=== PATIENT | male | born 1935 | race Caucasian/White ===

== ENCOUNTER 2016-11-14 09:43 | Outpatient (CLI) | payer MEDICARE, BC | END 2016-11-14 09:44 | disposition home or self-care (01) | DX: E78.5 Hyperlipidemia, unspecified (principal); D63.1 Anemia in chronic kidney disease; N18.3 Chronic kidney disease, stage 3 (moderate); M10.9 Gout, unspecified ==

== ENCOUNTER 2017-02-15 10:20 | Outpatient (CLI) | payer MEDICARE, BC ==
[2017-02-15 10:45] LABS: HCT - HEMATOCRIT 37.3 % (42.0-52.0); HGB - HEMOGLOBIN 12.2 g/dL (14.0-18.0); MEAN CORPUSCULAR HEMOGLOBIN 29.7 pg (27.0-31.0); MEAN CORPUSCULAR HGB CONC 32.7 g/dL (32.0-36.0); MEAN CORPUSCULAR VOLUME 90.7 fL (80.0-94.0); MEAN PLATELET VOLUME 7.7 fL (7.4-11.4); RED BLOOD COUNT 4.11 10^6/uL (4.70-6.10); RED CELL DISTRIBUTION WIDTH 15.5 % (12.0-15.0); WHITE BLOOD COUNT 5.8 x10^3/uL (4.8-10.8)
[2017-02-15 11:23] LABS: BUN - BLOOD UREA NITROGEN 35 mg/dL (6-20); CALCIUM 9.5 mg/dL (8.5-10.3); CARBON DIOXIDE - CO2 24 mmol/L (21-32); CHLORIDE 109 mmol/L (101-111); CHOL/HDL RATIO 3.8 (<5.0); CHOLESTEROL 173 mg/dL; CREATININE 1.9 mg/dL (0.6-1.2); GFR - MDRD 34 (>89); GLUCOSE 111 mg/dL (70-100); HDL CHOLESTEROL 45 mg/dL; IRON 64 ug/dL (45-182); LDL/HDL RATIO 2.2 (<3.6); POTASSIUM 4.6 mmol/L (3.5-5.0); SODIUM 142 mmol/L (135-145); TOTAL IRON BINDING CAPACITY 287 ug/dL (250-450); TRANSFERRIN 205 mg/dL (180-329); TRIGLYCERIDES 139 mg/dL; URIC ACID 8.2 mg/dL (2.6-7.2); VLDL CHOLESTEROL 28 mg/dL
== END 2017-02-15 10:21 | disposition home or self-care (01) ==
LOC: LAB 10:20
PROVIDERS: ATTEND Internal Medicine Nephrology
DX: N18.3 Chronic kidney disease, stage 3 (moderate) (principal); D63.1 Anemia in chronic kidney disease; M10.9 Gout, unspecified
CPT/HCPCS: 36415; 80061; 80069; 82043; 82570; 83540; 83970; 84466; 84550

== ENCOUNTER 2017-04-18 10:34 | Outpatient (CLI) | payer MEDICARE, BC ==
[2017-04-18 14:20] LABS: HCT - HEMATOCRIT 40.8 % (42.0-52.0); HGB - HEMOGLOBIN 13.1 g/dL (14.0-18.0); MEAN CORPUSCULAR HEMOGLOBIN 28.7 pg (27.0-31.0); MEAN CORPUSCULAR HGB CONC 32.1 g/dL (32.0-36.0); MEAN CORPUSCULAR VOLUME 89.6 fL (80.0-94.0); RED BLOOD COUNT 4.56 10^6/uL (4.70-6.10); RED CELL DISTRIBUTION WIDTH 16.1 % (12.0-15.0); WHITE BLOOD COUNT 7.7 x10^3/uL (4.8-10.8)
[2017-04-18 14:48] LABS: CALCIUM 9.7 mg/dL (8.5-10.3); POTASSIUM 4.4 mmol/L (3.5-5.0); URIC ACID 8.3 mg/dL (2.6-7.2)
== END 2017-04-18 10:35 | disposition home or self-care (01) ==
LOC: LAB.N 10:34
PROVIDERS: ATTEND Internal Medicine Nephrology
DX: N18.3 Chronic kidney disease, stage 3 (moderate) (principal); D63.1 Anemia in chronic kidney disease; M10.9 Gout, unspecified; E11.29 Type 2 diabetes mellitus with other diabetic kidney complication
CPT/HCPCS: 36415; 80069; 82043; 82570; 83540; 83970; 84466; 84550

== ENCOUNTER 2017-07-20 15:02 | Outpatient (CLI) | payer MEDICARE, BC ==
[2017-07-20 13:51] LABS: HCT - HEMATOCRIT 42.6 % (42.0-52.0); HGB - HEMOGLOBIN 14.1 g/dL (14.0-18.0); MEAN CORPUSCULAR HEMOGLOBIN 29.6 pg (27.0-31.0); MEAN CORPUSCULAR HGB CONC 33.1 g/dL (32.0-36.0); MEAN CORPUSCULAR VOLUME 89.6 fL (80.0-94.0); MEAN PLATELET VOLUME 9.5 fL (7.4-11.4); RED BLOOD COUNT 4.76 10^6/uL (4.70-6.10); RED CELL DISTRIBUTION WIDTH 17.2 % (12.0-15.0); WHITE BLOOD COUNT 6.9 x10^3/uL (4.8-10.8)
[2017-07-20 14:15] LABS: CALCIUM 9.4 mg/dL (8.5-10.3); CREATININE 1.9 mg/dL (0.6-1.2); PHOSPHORUS 3.3 mg/dL (2.5-4.6); POTASSIUM 4.2 mmol/L (3.5-5.0); URIC ACID 6.4 mg/dL (2.6-7.2)
[2017-07-22 13:17] LABS: ALPHA 1 GLOBULIN 0.3 g/dL (0.2-0.3); ALPHA 2 GLOBULIN 0.9 g/dL (0.5-0.9); BETA 1 GLOBULIN 0.5 g/dL (0.4-0.6); BETA 2 GLOBULIN 0.5 g/dL (0.2-0.5)
== END 2017-07-20 15:03 | disposition home or self-care (01) ==
LOC: LAB.N 15:02
PROVIDERS: ATTEND Internal Medicine Nephrology
DX: E78.5 Hyperlipidemia, unspecified (principal); E11.29 Type 2 diabetes mellitus with other diabetic kidney complication; N18.3 Chronic kidney disease, stage 3 (moderate); I12.9 Hypertensive chronic kidney disease with stage 1 through stage 4 chronic kidney disease, or unspecified chronic kidney disease; M10.9 Gout, unspecified; I48.91 Unspecified atrial fibrillation; D63.1 Anemia in chronic kidney disease
CPT/HCPCS: 36415; 80069; 82043; 82570; 83540; 83970; 84155; 84165; 84466; 84550

== ENCOUNTER 2017-08-18 15:01 | Emergency (ER) | payer MEDICARE, BC ==
--- NOTE | 2017-08-18 18:02 | CT Report ---
EXAM: CT LUMBAR SPINE WITHOUT CONTRAST EXAM DATE: 08/18/2017 05:47 PM. CLINICAL HISTORY: Acute low back pain. COMPARISONS: None. TECHNIQUE: Thin-section axial images were acquired of the lumbar spine from T12 to S1 without contras t. Post-processing: Coronal and sagittal reformats. Other: None. In accordance with CT protocol optimization, one or more of the following dose reduction techniques w ere utilized for this exam: automated exposure control, adjustment of mA and/or KV based on patient s ize, or use of iterative reconstructive technique. FINDINGS: Alignment: No scoliosis or spondylolisthesis. Bones: Five clu-vdt-latrxpi lumbar vertebral bodies are present. No fracture or bony destruction. Disk Levels/Facets: T12-L1: Unremarkable. L1-L2: Unremarkable. L2-L3: There is wqbp-ix-aifvyotc disk height loss with intradiskal gas. There is posterior disk osteo phyte spurring causing mild central spinal canal stenosis. L3-L4: Mild disk height loss with posterior disk osteophyte spurring causing mild to moderate central spinal canal stenosis. L4-L5: Posterior disk bulge with mild central spinal canal stenosis. L5-S1: Unremarkable. Musculature: Normal. No fatty atrophy. Other: There is an incidental benign fat density right adrenal nodule consistent with a lipoma or mye lolipoma. IMPRESSION: 1. No fracture or subluxation of the lumbar spine. 2. Degenerative disk disease at L2-L5. Gszx-zn-czlkvuna severity. [facility] Referring Provider Line: [phone] SITE ID: [id number]
--- NOTE | 2017-08-18 18:27 | ED Physician Documentation ---
PD HPI BACK PAIN - Stated complaint Stated Complaint: BACK SPASMS - Chief complaint Chief Complaint: Back Pain - History obtained from History obtained from: Patient, Family (spouse) - History of Present Illness Timing - onset: How many weeks ago (2) Timing - details: Still present Location: Lower, Left Quality: Pain Associated symptoms: No: Fever, Weakness, Numbness, Incontinent of urine Worsened by: Movement, Twisting Similar symptoms before: No diagnosis (Similar symptoms in the past, but more intense this time.) - Treatment prior to arrival Treatment prior to arrival: Tylenol, without relief. - Additional information Additional information: The patient is an 82-year-old male with a history of atrial fibrillation, diabetes, and rheumatoid arthritis, who presents with left lower back pain radiating to his buttock. It has been increasing over the past 2 weeks. He denies traumatic injury or any specific inciting event. He denies fever, urinary incontinence, numbness or weakness. He has had similar pain in the past , but never this intense before. He has been using Tylenol, without relief. Review of Systems Constitutional: denies: Fever Nose: denies: Congestion Cardiac: denies: Chest pain / pressure Respiratory: denies: Dyspnea, Cough GI: denies: Abdominal Pain, Nausea, Vomiting : denies: Dysuria, Incontinent Skin: denies: Rash Musculoskeletal: reports: Back pain. denies: Neck pain, Extremity swelling Neurologic: denies: Focal weakness, Numbness, Headache PD PAST MEDICAL HISTORY - Past Medical History Past Medical History: Yes Cardiovascular: Atrial fibrillation Respiratory: None Neuro: Peripheral neuropathy Endocrine/Autoimmune: Type 2 diabetes GI: None : Renal insuffiency HEENT: None Psych: None Musculoskeletal: Rheumatoid arthritis Derm: None - Past Surgical History Past Surgical History: Yes General: Cholecystectomy - Present Medications Home Medications: Ambulatory Orders Medication Instructions Recorded Confirmed Cyclobenzaprine [Flexeril] 10 mg PO TID PRN #20 tablet 08/18/17 traMADol [Ultram] 50 mg PO Q4-6H PRN #20 tablet 08/18/17 - Allergies Allergies/Adverse Reactions: Allergies Allergy/AdvReac Type Severity Reaction Status Date / Time acetaminophen [From Vicodin] Allergy Itching Verified 08/18/17 15:17 celecoxib [From Celebrex] Allergy Unknown Verified 08/18/17 15:17 cephalexin [From Keflex] Allergy Nausea Verified 08/18/17 15:17 codeine Allergy Itching Verified 08/18/17 15:17 hydrocodone [From Vicodin] Allergy Itching Verified 08/18/17 15:17 indomethacin Allergy Unknown Verified 08/18/17 15:17 NSAIDS (Non-Steroidal Allergy Unknown Verified 08/18/17 15:17 Anti-Inflamma rofecoxib [From Vioxx] Allergy Unknown Verified 08/18/17 15:17 sildenafil [From Viagra] Allergy Diaphoresis Verified 08/18/17 15:17 - Social History Does the pt smoke?: No Smoking Status: Never smoker Does the pt drink ETOH?: No Does the pt have substance abuse?: No - Immunizations Immunizations are current?: Yes PD ED PE NORMAL - Vitals Vital signs reviewed: Yes (Hypertensive) - General General: Alert 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, Well developed/nourished - HEENT HEENT: Atraumatic - Neck Neck: No bony TTP, No JVD - Cardiac Cardiac: RRR, No murmur - Respiratory Respiratory: No respiratory distress, Clear bilaterally - Abdomen Abdomen: Soft, Non tender, Other (Rotund abdomen.) - Back Back: No CVA TTP, Other (There is tenderness to palpation along the left paralumbar region and over the left sacroiliac joint. There is no specific tenderness over the spinous processes.) - Derm Derm: No rash - Extremities Extremities: No edema, No calf tenderness / cord, Other (Straight leg raise is negative bilaterally.) - Neuro Neuro: Alert 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, No motor deficit, No sensory deficit, Other ( Deep tendon reflexes are 2+ and equal bilaterally at the patellar tendons, and 1 + and equal bilaterally at the Achilles tendons.) Results - Rads (name of study) CT lumbar spine Radiology: Prelim report reviewed, EMP read contemporaneously, See rad report ( No fracture or subluxation of the lumbar spine. Degenerative disc disease at L2 through L5, mild to moderate severity.) PD MEDICAL DECISION MAKING - ED course Complexity details: re-evaluated patient, considered differential, d/w patient, d/w family ED course: The patient's presentation is significant for acute exacerbation of recurrent low back pain. Because of his age, imaging study as clinically indicated. CT scan of the lumbar spine reveals degenerative changes, without evidence of lytic lesion or acute neural foraminal impingement. The patient declined pain medication while in the emergency department. He is being discharged with prescription for Flexeril and for tramadol. I discussed with him and his the CT scan, symptomatic treatment and outpatient follow-up, as well as potentially worrisome signs or symptoms that should prompt fashion. Departure - Departure Disposition: 01 Home, Self Care Clinical Impression: Acute low back pain Qualifiers: Back pain laterality: left Sciatica presence: without sciatica Qualified Code(s ): M54.5 - Low back pain Degenerative disc disease Qualifiers: Spinal region: lumbar Qualified Code(s): M51.36 - Other intervertebral disc degeneration, lumbar region Condition: Stable Instructions: ED Low Back Pain Injury Follow-Up: Brennen Rodriguez MD [Provider Admit Priv/Credential] - Prescriptions: Cyclobenzaprine [Flexeril] 10 mg PO TID PRN #20 tablet PRN Reason: Spasms traMADol [Ultram] 50 mg PO Q4-6H PRN #20 tablet PRN Reason: Pain Comments: Apply ice pack to your lower back intermittently for the next 3 days. You can use ibuprofen, up to 800 mg 3 times daily for its anti-inflammatory effect. You can use tramadol as prescribed if needed for pain. You can use Flexeril as prescribed if needed for muscle spasms. Follow up with your primary physician within 2 weeks. Call to schedule appointment. Return to the emergency department if you develop increasing back pain, numbness or weakness in your lower extremities, urinary incontinence, fever, or otherwise worsening symptoms. Discharge Date/Time: 08/18/17 19:00
[2017-08-18 18:59] VITALS: BP 148/90
== END 2017-08-18 19:00 | disposition home or self-care (01) ==
LOC: ED 15:01
DX: M54.5 Low back pain (principal); M51.36 Other intervertebral disc degeneration, lumbar region; I48.91 Unspecified atrial fibrillation; E11.42 Type 2 diabetes mellitus with diabetic polyneuropathy; M06.9 Rheumatoid arthritis, unspecified
CPT/HCPCS: 72131; 99283; 99284

== ENCOUNTER 2017-11-16 08:00 | Outpatient (CLI) | payer OTHER, MEDICARE, BC ==
[2017-11-16 12:03] LABS: HGB - HEMOGLOBIN 14.5 g/dL (14.0-18.0); MEAN CORPUSCULAR HEMOGLOBIN 31.2 pg (27.0-31.0); MEAN CORPUSCULAR HGB CONC 33.2 g/dL (32.0-36.0); MEAN CORPUSCULAR VOLUME 94.1 fL (80.0-94.0); MEAN PLATELET VOLUME 9.4 fL (7.4-11.4); RED BLOOD COUNT 4.65 10^6/uL (4.70-6.10); RED CELL DISTRIBUTION WIDTH 15.1 % (12.0-15.0); WHITE BLOOD COUNT 6.9 x10^3/uL (4.8-10.8)
[2017-11-16 12:39] LABS: CREATININE,URINE 162.6 mg/dL; MICROALBUM/CREATININE RATIO,UR 106.4 ug/mg (<30.0); MICROALBUMIN,URINE 17.3 mg/dL (0-300.0)
[2017-11-16 13:30] LABS: ALBUMIN 3.8 g/dL (3.2-5.5); CALCIUM 9.3 mg/dL (8.5-10.3); CREATININE 1.7 mg/dL (0.6-1.2); PHOSPHORUS 2.8 mg/dL (2.5-4.6); URIC ACID 6.5 mg/dL (2.6-7.2)
== END 2017-11-16 08:01 | disposition home or self-care (01) ==
LOC: LAB.N 08:00
PROVIDERS: ATTEND Internal Medicine Nephrology
DX: D63.1 Anemia in chronic kidney disease (principal); N18.3 Chronic kidney disease, stage 3 (moderate); R80.9 Proteinuria, unspecified; M10.9 Gout, unspecified
CPT/HCPCS: 36415; 80069; 82043; 82570; 83540; 83970; 84466; 84550

== ENCOUNTER 2017-12-14 15:06 | Outpatient (CLI) | payer MEDICARE, BC ==
[2017-12-14 19:20] LABS: BASOPHILS # (AUTO) 0.1 10^3/uL (0.0-0.1); BASOPHILS % (AUTO) 1.1 %; EOSINOPHILS # (AUTO) 0.2 10^3/uL (0.0-0.7); EOSINOPHILS % (AUTO) 2.3 %; HGB - HEMOGLOBIN 14.7 g/dL (14.0-18.0); LYMPHOCYTES # (AUTO) 1.8 10^3/uL (1.5-3.5); LYMPHOCYTES % (AUTO) 24.2 %; MEAN CORPUSCULAR HEMOGLOBIN 30.9 pg (27.0-31.0); MEAN CORPUSCULAR HGB CONC 32.4 g/dL (32.0-36.0); MEAN CORPUSCULAR VOLUME 95.4 fL (80.0-94.0); MEAN PLATELET VOLUME 9.1 fL (7.4-11.4); MONOCYTES # (AUTO) 0.9 10^3/uL (0.0-1.0); MONOCYTES % (AUTO) 12.3 %; NEUTROPHILS # (AUTO) 4.4 10^3/uL (1.5-6.6); NEUTROPHILS % (AUTO) 60.1 %; PLT - PLATELET COUNT 201 10^3/uL (130-450); RED BLOOD COUNT 4.77 10^6/uL (4.70-6.10); RED CELL DISTRIBUTION WIDTH 15.4 % (12.0-15.0); WHITE BLOOD COUNT 7.3 x10^3/uL (4.8-10.8)
[2017-12-14 19:44] LABS: ALBUMIN 4.3 g/dL (3.2-5.5); ALBUMIN/GLOBULIN RATIO 1.4 (1.0-2.2); ALKALINE PHOSPHATASE 67 IU/L (42-121); ALT ALANINE AMINOTRANSFERASE 23 IU/L (10-60); AST ASPARTATE AMINOTRANSFERASE 21 IU/L (10-42); BILIRUBIN,TOTAL 0.7 mg/dL (0.2-1.0); BUN - BLOOD UREA NITROGEN 38 mg/dL (6-20); CARBON DIOXIDE - CO2 30 mmol/L (21-32); CHLORIDE 103 mmol/L (101-111); CREATININE 1.7 mg/dL (0.6-1.2); GFR - MDRD 39 (>89); GLUCOSE 112 mg/dL (70-100); SODIUM 139 mmol/L (135-145); TOTAL PROTEIN 7.3 g/dL (6.7-8.2)
[2017-12-15 11:36] LABS: DIGOXIN < 0.2 ng/mL
== END 2017-12-14 15:07 | disposition home or self-care (01) ==
LOC: LAB.WCP 15:06
PROVIDERS: ATTEND Family Medicine
DX: I48.91 Unspecified atrial fibrillation (principal); I42.9 Cardiomyopathy, unspecified; E11.9 Type 2 diabetes mellitus without complications
CPT/HCPCS: 36415; 80053; 80162; 84443; 85025

== ENCOUNTER 2017-12-19 08:00 | Outpatient (CLI) | payer MEDICARE, BC ==
[2017-12-19 19:44] LABS: DIGOXIN < 0.2 ng/mL
== END 2017-12-19 08:01 | disposition home or self-care (01) ==
LOC: LAB.WCP 08:00
PROVIDERS: ATTEND Family Medicine
DX: I48.91 Unspecified atrial fibrillation (principal)
CPT/HCPCS: 36415; 80162

== ENCOUNTER 2017-12-29 06:00 | Outpatient (CLI) | payer MEDICARE, BC ==
[2017-12-29 19:14] LABS: DIGOXIN 0.7 ng/mL
== END 2017-12-29 06:01 | disposition home or self-care (01) ==
LOC: LAB.WCP 06:00
PROVIDERS: ATTEND Family Medicine
DX: I48.91 Unspecified atrial fibrillation (principal)
CPT/HCPCS: 36415; 80162

== ENCOUNTER 2018-01-15 08:00 | Outpatient (CLI) | payer MEDICARE, BC ==
[2018-01-15 19:01] LABS: BASOPHILS # (AUTO) 0.1 10^3/uL (0.0-0.1); BASOPHILS % (AUTO) 1.3 %; EOSINOPHILS # (AUTO) 0.2 10^3/uL (0.0-0.7); EOSINOPHILS % (AUTO) 2.6 %; HGB - HEMOGLOBIN 13.6 g/dL (14.0-18.0); LYMPHOCYTES # (AUTO) 1.4 10^3/uL (1.5-3.5); LYMPHOCYTES % (AUTO) 19.8 %; MEAN CORPUSCULAR HEMOGLOBIN 30.4 pg (27.0-31.0); MEAN CORPUSCULAR HGB CONC 31.8 g/dL (32.0-36.0); MEAN CORPUSCULAR VOLUME 95.7 fL (80.0-94.0); MEAN PLATELET VOLUME 9.8 fL (7.4-11.4); MONOCYTES # (AUTO) 0.8 10^3/uL (0.0-1.0); MONOCYTES % (AUTO) 11.2 %; NEUTROPHILS # (AUTO) 4.6 10^3/uL (1.5-6.6); NEUTROPHILS % (AUTO) 65.1 %; PLT - PLATELET COUNT 190 10^3/uL (130-450); RED BLOOD COUNT 4.48 10^6/uL (4.70-6.10); RED CELL DISTRIBUTION WIDTH 15.2 % (12.0-15.0); WHITE BLOOD COUNT 7.1 x10^3/uL (4.8-10.8)
[2018-01-15 19:49] LABS: ALBUMIN 3.9 g/dL (3.2-5.5); ALBUMIN/GLOBULIN RATIO 1.3 (1.0-2.2); BILIRUBIN,TOTAL 0.7 mg/dL (0.2-1.0); CALCIUM 9.6 mg/dL (8.5-10.3); CREATININE 1.6 mg/dL (0.6-1.2); TOTAL PROTEIN 6.9 g/dL (6.7-8.2)
[2018-01-15 20:05] LABS: HB2 TOTAL 14.8 g/dL; HEMOGLOBIN A1C 0.9 g/dL; HEMOGLOBIN A1C % 7.7 % (4.6-6.2)
== END 2018-01-15 08:01 | disposition home or self-care (01) ==
LOC: LAB.WCP 08:00
PROVIDERS: ATTEND Physician Assistant
DX: R53.83 Other fatigue (principal); E11.9 Type 2 diabetes mellitus without complications; I42.9 Cardiomyopathy, unspecified; I48.91 Unspecified atrial fibrillation
CPT/HCPCS: 36415; 80053; 83036; 85025

== ENCOUNTER 2018-01-17 11:10 | Outpatient (CLI) | payer MEDICARE, BC ==
[2018-01-17 19:14] LABS: BASOPHILS # (AUTO) 0.1 10^3/uL (0.0-0.1); BASOPHILS % (AUTO) 0.8 %; EOSINOPHILS # (AUTO) 0.2 10^3/uL (0.0-0.7); EOSINOPHILS % (AUTO) 2.6 %; HGB - HEMOGLOBIN 13.6 g/dL (14.0-18.0); LYMPHOCYTES # (AUTO) 1.4 10^3/uL (1.5-3.5); MEAN CORPUSCULAR HEMOGLOBIN 30.7 pg (27.0-31.0); MEAN CORPUSCULAR HGB CONC 31.9 g/dL (32.0-36.0); MEAN CORPUSCULAR VOLUME 96.2 fL (80.0-94.0); MEAN PLATELET VOLUME 9.7 fL (7.4-11.4); MONOCYTES # (AUTO) 0.8 10^3/uL (0.0-1.0); MONOCYTES % (AUTO) 11.4 %; NEUTROPHILS # (AUTO) 4.4 10^3/uL (1.5-6.6); NEUTROPHILS % (AUTO) 64.2 %; PLT - PLATELET COUNT 176 10^3/uL (130-450); RED BLOOD COUNT 4.44 10^6/uL (4.70-6.10); RED CELL DISTRIBUTION WIDTH 15.7 % (12.0-15.0); WHITE BLOOD COUNT 6.8 x10^3/uL (4.8-10.8)
[2018-01-17 19:28] LABS: DIGOXIN 1.4 ng/mL
[2018-01-17 19:38] LABS: ALBUMIN 3.6 g/dL (3.2-5.5); ALBUMIN/GLOBULIN RATIO 1.1 (1.0-2.2); CALCIUM 9.6 mg/dL (8.5-10.3); CREATININE 1.6 mg/dL (0.6-1.2); TOTAL PROTEIN 6.9 g/dL (6.7-8.2)
== END 2018-01-17 11:11 | disposition home or self-care (01) ==
LOC: LAB.WCP 11:10
PROVIDERS: ATTEND Family Medicine
DX: I48.91 Unspecified atrial fibrillation (principal); E11.9 Type 2 diabetes mellitus without complications; N18.3 Chronic kidney disease, stage 3 (moderate); I42.9 Cardiomyopathy, unspecified
CPT/HCPCS: 36415; 80053; 80162; 84443; 85025

== ENCOUNTER 2018-02-01 08:00 | Outpatient (CLI) | payer MEDICARE, BC | END 2018-02-01 08:01 | LOC: LAB.WCP 08:00 | PROVIDERS: ATTEND Physician Assistant | DX: I42.9 Cardiomyopathy, unspecified (principal); Z79.01 Long term (current) use of anticoagulants; I48.91 Unspecified atrial fibrillation; R53.83 Other fatigue; N18.3 Chronic kidney disease, stage 3 (moderate) | CPT/HCPCS: 36415; 83880 ==

== ENCOUNTER 2018-03-19 08:00 | Outpatient (CLI) | payer MEDICARE, BC ==
[2018-03-19 12:57] LABS: HGB - HEMOGLOBIN 13.8 g/dL (14.0-18.0); MEAN CORPUSCULAR HEMOGLOBIN 31.8 pg (27.0-31.0); MEAN CORPUSCULAR HGB CONC 33.2 g/dL (32.0-36.0); MEAN CORPUSCULAR VOLUME 95.9 fL (80.0-94.0); MEAN PLATELET VOLUME 9.5 fL (7.4-11.4); RED BLOOD COUNT 4.33 10^6/uL (4.70-6.10); RED CELL DISTRIBUTION WIDTH 15.2 % (12.0-15.0)
[2018-03-19 14:36] LABS: CREATININE,URINE 144.7 mg/dL; MICROALBUM/CREATININE RATIO,UR 96.8 ug/mg (<30.0)
[2018-03-19 14:59] LABS: ALBUMIN 3.9 g/dL (3.2-5.5); CALCIUM 9.6 mg/dL (8.5-10.3); CREATININE 2.2 mg/dL (0.6-1.2); PHOSPHORUS 3.6 mg/dL (2.5-4.6); URIC ACID 7.1 mg/dL (2.6-7.2)
== END 2018-03-19 08:01 | disposition home or self-care (01) ==
LOC: LAB.N 08:00
PROVIDERS: ATTEND Internal Medicine Nephrology
DX: I12.9 Hypertensive chronic kidney disease with stage 1 through stage 4 chronic kidney disease, or unspecified chronic kidney disease (principal); N18.3 Chronic kidney disease, stage 3 (moderate); R80.9 Proteinuria, unspecified; M10.9 Gout, unspecified
CPT/HCPCS: 36415; 80069; 82043; 82570; 83540; 83970; 84466; 84550; 85027

== ENCOUNTER 2018-05-10 15:06 | Outpatient (CLI) | payer MEDICARE, BC | END 2018-05-10 23:59 | disposition home or self-care (01) | LOC: LAB.N 15:06 | PROVIDERS: ATTEND Internal Medicine Cardiovascular Disease | DX: Z53.9 Procedure and treatment not carried out, unspecified reason (principal) ==

== ENCOUNTER 2018-06-20 08:00 | Outpatient (CLI) | payer MEDICARE, BC ==
[2018-06-20 18:49] LABS: BASOPHILS # (AUTO) 0.1 10^3/uL (0.0-0.1); BASOPHILS % (AUTO) 1.1 %; EOSINOPHILS # (AUTO) 0.5 10^3/uL (0.0-0.7); HGB - HEMOGLOBIN 13.4 g/dL (14.0-18.0); LYMPHOCYTES # (AUTO) 1.4 10^3/uL (1.5-3.5); LYMPHOCYTES % (AUTO) 15.2 %; MEAN CORPUSCULAR HEMOGLOBIN 31.8 pg (27.0-31.0); MEAN CORPUSCULAR HGB CONC 32.8 g/dL (32.0-36.0); MONOCYTES # (AUTO) 1.3 10^3/uL (0.0-1.0); NEUTROPHILS # (AUTO) 5.8 10^3/uL (1.5-6.6); NEUTROPHILS % (AUTO) 64.7 %; PLT - PLATELET COUNT 253 10^3/uL (130-450); RED CELL DISTRIBUTION WIDTH 15.4 % (12.0-15.0)
[2018-06-20 19:03] LABS: HB2 TOTAL 14.6 g/dL; HEMOGLOBIN A1C 0.69 g/dL; HEMOGLOBIN A1C % 6.5 % (4.6-6.2)
[2018-06-20 19:18] LABS: ALBUMIN 3.8 g/dL (3.2-5.5); BILIRUBIN,TOTAL 0.8 mg/dL (0.2-1.0); CALCIUM 9.6 mg/dL (8.5-10.3); CREATININE 2.3 mg/dL (0.6-1.2); TOTAL PROTEIN 7.8 g/dL (6.7-8.2)
== END 2018-06-20 23:59 | disposition home or self-care (01) ==
LOC: LAB.WCP 08:00
PROVIDERS: ATTEND Physician Assistant
DX: R53.83 Other fatigue (principal); E11.9 Type 2 diabetes mellitus without complications
CPT/HCPCS: 36415; 80053; 83036; 83540; 84443; 84466; 85025

== ENCOUNTER 2018-07-02 08:00 | Outpatient (CLI) | payer MEDICARE, BC | END 2018-07-02 23:59 | disposition home or self-care (01) | LOC: LAB.R 08:00 | PROVIDERS: ATTEND Family Medicine | DX: R05 Cough (principal) | CPT/HCPCS: 87275; 87276 ==

== ENCOUNTER 2018-07-02 08:00 | Outpatient (CLI) | payer MEDICARE, BC ==
[2018-07-02 19:17] LABS: BASOPHILS # (AUTO) 0.1 10^3/uL (0.0-0.1); BASOPHILS % (AUTO) 1.3 %; EOSINOPHILS # (AUTO) 0.5 10^3/uL (0.0-0.7); EOSINOPHILS % (AUTO) 5.1 %; HGB - HEMOGLOBIN 13.5 g/dL (14.0-18.0); LYMPHOCYTES # (AUTO) 1.1 10^3/uL (1.5-3.5); LYMPHOCYTES % (AUTO) 12.4 %; MEAN CORPUSCULAR HEMOGLOBIN 31.1 pg (27.0-31.0); MEAN CORPUSCULAR HGB CONC 31.8 g/dL (32.0-36.0); MEAN CORPUSCULAR VOLUME 97.7 fL (80.0-94.0); MEAN PLATELET VOLUME 9.4 fL (7.4-11.4); MONOCYTES # (AUTO) 1.1 10^3/uL (0.0-1.0); MONOCYTES % (AUTO) 12.5 %; NEUTROPHILS # (AUTO) 6.1 10^3/uL (1.5-6.6); NEUTROPHILS % (AUTO) 68.7 %; PLT - PLATELET COUNT 264 10^3/uL (130-450); RED BLOOD COUNT 4.34 10^6/uL (4.70-6.10); RED CELL DISTRIBUTION WIDTH 15.2 % (12.0-15.0); WHITE BLOOD COUNT 8.9 x10^3/uL (4.8-10.8)
[2018-07-02 19:38] LABS: ALBUMIN 3.7 g/dL (3.2-5.5); ALBUMIN/GLOBULIN RATIO 0.9 (1.0-2.2); CALCIUM 9.7 mg/dL (8.5-10.3); CREATININE 2.5 mg/dL (0.6-1.2); TOTAL PROTEIN 7.8 g/dL (6.7-8.2)
== END 2018-07-02 23:59 | disposition home or self-care (01) ==
LOC: LAB.WCP 08:00
PROVIDERS: ATTEND Family Medicine
DX: R06.00 Dyspnea, unspecified (principal); R05 Cough
CPT/HCPCS: 36415; 80053; 83880; 85025

== ENCOUNTER 2018-07-15 09:04 | Outpatient (CLI) | payer MEDICARE, BC ==
[2018-07-15 09:39] LABS: MEAN CORPUSCULAR HEMOGLOBIN 31.6 pg (27.0-31.0); MEAN CORPUSCULAR HGB CONC 33.3 g/dL (32.0-36.0); MEAN CORPUSCULAR VOLUME 94.8 fL (80.0-94.0); MEAN PLATELET VOLUME 8.4 fL (7.4-11.4); RED BLOOD COUNT 4.1 10^6/uL (4.70-6.10); RED CELL DISTRIBUTION WIDTH 15.6 % (12.0-15.0); WHITE BLOOD COUNT 7.3 x10^3/uL (4.8-10.8)
[2018-07-15 09:55] LABS: ALBUMIN 3.7 g/dL (3.2-5.5); CALCIUM 9.5 mg/dL (8.5-10.3); CREATININE 2.3 mg/dL (0.6-1.2); PHOSPHORUS 3.7 mg/dL (2.5-4.6); URIC ACID 6.3 mg/dL (2.6-7.2)
[2018-07-15 10:40] LABS: CREATININE,URINE 195.8 mg/dL; MICROALBUM/CREATININE RATIO,UR 83.2 ug/mg (<30.0); MICROALBUMIN,URINE 16.3 mg/dL (0-300.0)
== END 2018-07-15 09:05 | disposition home or self-care (01) ==
LOC: LAB 09:04
PROVIDERS: ATTEND Internal Medicine Nephrology
DX: E21.1 Secondary hyperparathyroidism, not elsewhere classified (principal); D63.1 Anemia in chronic kidney disease; E78.5 Hyperlipidemia, unspecified; N18.3 Chronic kidney disease, stage 3 (moderate); I12.9 Hypertensive chronic kidney disease with stage 1 through stage 4 chronic kidney disease, or unspecified chronic kidney disease; R80.9 Proteinuria, unspecified; M10.9 Gout, unspecified; E11.29 Type 2 diabetes mellitus with other diabetic kidney complication
CPT/HCPCS: 36415; 80069; 82043; 82570; 83540; 83970; 84466; 84550; 85027

== ENCOUNTER 2018-07-15 09:08 | Outpatient (CLI) | payer MEDICARE, BC | END 2018-07-15 09:09 | disposition home or self-care (01) | LOC: RT 09:08 | PROVIDERS: ATTEND Family Medicine | DX: R05 Cough (principal); E21.1 Secondary hyperparathyroidism, not elsewhere classified; D63.1 Anemia in chronic kidney disease; E78.5 Hyperlipidemia, unspecified; N18.3 Chronic kidney disease, stage 3 (moderate); I12.9 Hypertensive chronic kidney disease with stage 1 through stage 4 chronic kidney disease, or unspecified chronic kidney disease; R80.9 Proteinuria, unspecified; M10.9 Gout, unspecified; E11.29 Type 2 diabetes mellitus with other diabetic kidney complication | CPT/HCPCS: 36415; 80069; 82043; 82570; 83540; 83970; 84466; 84550; 85027 ==

== ENCOUNTER 2018-09-04 08:00 | Outpatient (CLI) | payer MEDICARE, BC ==
[2018-09-04 20:03] LABS: CALCIUM 9.5 mg/dL (8.5-10.3); CREATININE 1.7 mg/dL (0.6-1.2); PHOSPHORUS 3.6 mg/dL (2.5-4.6)
== END 2018-09-04 23:59 | disposition home or self-care (01) ==
LOC: LAB.N 08:00
PROVIDERS: ATTEND Internal Medicine Nephrology
DX: I12.9 Hypertensive chronic kidney disease with stage 1 through stage 4 chronic kidney disease, or unspecified chronic kidney disease (principal); N18.3 Chronic kidney disease, stage 3 (moderate); R80.9 Proteinuria, unspecified
CPT/HCPCS: 36415; 80069; 81599; 82610

== ENCOUNTER 2018-09-14 08:00 | Outpatient (CLI) | payer MEDICARE, BC ==
[2018-09-14 14:15] LABS: ALBUMIN 3.9 g/dL (3.2-5.5); ALBUMIN/GLOBULIN RATIO 1.2 (1.0-2.2); BILIRUBIN,TOTAL 0.7 mg/dL (0.2-1.0); CALCIUM 9.7 mg/dL (8.5-10.3); CREATININE 1.8 mg/dL (0.6-1.2); TOTAL PROTEIN 7.1 g/dL (6.7-8.2)
[2018-09-14 15:59] LABS: HB2 TOTAL 14.9 g/dL; HEMOGLOBIN A1C 0.66 g/dL; HEMOGLOBIN A1C % 6.2 % (4.6-6.2)
== END 2018-09-14 23:59 | disposition home or self-care (01) ==
LOC: LAB.WCP 08:00
PROVIDERS: ATTEND Family Medicine
DX: R11.0 Nausea (principal); E11.9 Type 2 diabetes mellitus without complications; R05 Cough; I48.92 Unspecified atrial flutter
CPT/HCPCS: 36415; 80053; 82043; 83036; 84443

== ENCOUNTER 2018-12-12 08:00 | Outpatient (CLI) | payer MEDICARE, BC | END 2018-12-12 23:59 | disposition home or self-care (01) | LOC: LAB.WCP 08:00 | PROVIDERS: ATTEND Family Medicine | DX: I48.92 Unspecified atrial flutter (principal); Z79.01 Long term (current) use of anticoagulants ==

== ENCOUNTER 2018-12-17 10:40 | Outpatient (CLI) | payer MEDICARE, BC ==
[2018-12-17 12:49] LABS: MEAN CORPUSCULAR HEMOGLOBIN 30.2 pg (27.0-31.0); MEAN CORPUSCULAR HGB CONC 32.5 g/dL (32.0-36.0); MEAN CORPUSCULAR VOLUME 92.9 fL (80.0-94.0); MEAN PLATELET VOLUME 8.8 fL (7.4-11.4); RED BLOOD COUNT 4.32 10^6/uL (4.70-6.10); WHITE BLOOD COUNT 6.3 x10^3/uL (4.8-10.8)
[2018-12-17 14:32] LABS: ALBUMIN 3.5 g/dL (3.2-5.5); BILIRUBIN,TOTAL 0.8 mg/dL (0.2-1.0); CALCIUM 9.2 mg/dL (8.5-10.3); CREATININE 1.6 mg/dL (0.6-1.2); TOTAL PROTEIN 6.9 g/dL (6.7-8.2)
[2018-12-17 14:44] LABS: HB2 TOTAL 13.5 g/dL; HEMOGLOBIN A1C 0.6 g/dL; HEMOGLOBIN A1C % 6.2 % (4.6-6.2)
[2018-12-17 14:48] LABS: CREATININE,URINE 131.1 mg/dL; MICROALBUM/CREATININE RATIO,UR 622.4 ug/mg (<30.0); MICROALBUMIN,URINE 81.6 mg/dL (0-300.0)
[2018-12-17 14:51] LABS: PHOSPHORUS 2.6 mg/dL (2.5-4.6); URIC ACID 8.2 mg/dL (2.6-7.2)
== END 2018-12-17 23:59 | disposition home or self-care (01) ==
LOC: LAB.N 10:40
PROVIDERS: ATTEND Family Medicine
DX: E11.9 Type 2 diabetes mellitus without complications (principal); D63.1 Anemia in chronic kidney disease; I48.92 Unspecified atrial flutter; N18.3 Chronic kidney disease, stage 3 (moderate); R11.0 Nausea; I12.9 Hypertensive chronic kidney disease with stage 1 through stage 4 chronic kidney disease, or unspecified chronic kidney disease; R80.9 Proteinuria, unspecified
CPT/HCPCS: 36415; 80053; 82043; 82570; 83036; 83540; 83970; 84100; 84466; 84550; 85027

== ENCOUNTER 2018-12-26 08:00 | Outpatient (CLI) | payer MEDICARE, BC | END 2018-12-26 23:59 | disposition home or self-care (01) | LOC: LAB.WCP 08:00 | PROVIDERS: ATTEND Family Medicine | DX: Z51.81 Encounter for therapeutic drug level monitoring (principal); I48.92 Unspecified atrial flutter; Z79.01 Long term (current) use of anticoagulants ==

== ENCOUNTER 2019-01-23 08:00 | Outpatient (CLI) | payer MEDICARE, BC | END 2019-01-23 23:59 | disposition home or self-care (01) | LOC: LAB.WCP 08:00 | PROVIDERS: ATTEND Family Medicine | DX: I48.91 Unspecified atrial fibrillation (principal); Z79.01 Long term (current) use of anticoagulants ==

== ENCOUNTER 2019-03-08 08:00 | Outpatient (CLI) | payer MEDICARE, BC | END 2019-03-08 08:01 | disposition home or self-care (01) | LOC: LAB.WCP 08:00 | PROVIDERS: ATTEND Family Medicine | DX: I48.91 Unspecified atrial fibrillation (principal); Z79.01 Long term (current) use of anticoagulants ==

== ENCOUNTER 2019-03-22 08:00 | Outpatient (CLI) | payer MEDICARE, BC | END 2019-03-22 23:59 | disposition home or self-care (01) | LOC: LAB.WCP 08:00 | PROVIDERS: ATTEND Family Medicine | DX: I48.91 Unspecified atrial fibrillation (principal) ==

== ENCOUNTER 2019-04-02 08:00 | Outpatient (CLI) | payer MEDICARE, BC ==
[2019-04-02 14:07] LABS: HB2 TOTAL 14.6 g/dL; HEMOGLOBIN A1C 0.72 g/dL; HEMOGLOBIN A1C % 6.7 % (4.6-6.2)
[2019-04-02 14:16] LABS: CREATININE 1.9 mg/dL (0.6-1.2)
== END 2019-04-02 23:59 | disposition home or self-care (01) ==
LOC: LAB.WCP 08:00
PROVIDERS: ATTEND Family Medicine
DX: E11.22 Type 2 diabetes mellitus with diabetic chronic kidney disease (principal); N18.3 Chronic kidney disease, stage 3 (moderate); I48.91 Unspecified atrial fibrillation
CPT/HCPCS: 36415; 80048; 82043; 83036

== ENCOUNTER 2019-04-09 08:00 | Outpatient (CLI) | payer MEDICARE, BC | END 2019-04-09 23:59 | disposition home or self-care (01) | LOC: LAB.WCP 08:00 | PROVIDERS: ATTEND Family Medicine | DX: I48.92 Unspecified atrial flutter (principal); Z79.01 Long term (current) use of anticoagulants ==

== ENCOUNTER 2019-04-17 08:00 | Outpatient (CLI) | payer MEDICARE, BC ==
[2019-04-17 18:55] LABS: HGB - HEMOGLOBIN 13.4 g/dL (14.0-18.0); MEAN CORPUSCULAR HEMOGLOBIN 31.2 pg (27.0-31.0); MEAN CORPUSCULAR HGB CONC 32.2 g/dL (32.0-36.0); MEAN PLATELET VOLUME 11.1 fL (7.4-11.4); RED BLOOD COUNT 4.29 10^6/uL (4.70-6.10); RED CELL DISTRIBUTION WIDTH 15.2 % (12.0-15.0); WHITE BLOOD COUNT 5.7 x10^3/uL (4.8-10.8)
[2019-04-17 19:19] LABS: CREATININE,URINE 47.7 mg/dL; MICROALBUM/CREATININE RATIO,UR 511.5 ug/mg (<30.0); MICROALBUMIN,URINE 24.4 mg/dL (0-300.0)
[2019-04-17 19:22] LABS: ALBUMIN 3.8 g/dL (3.2-5.5); CALCIUM 10.1 mg/dL (8.5-10.3); CREATININE 2.1 mg/dL (0.6-1.2); PHOSPHORUS 3.3 mg/dL (2.5-4.6); URIC ACID 6.2 mg/dL (2.6-7.2)
== END 2019-04-17 23:59 | disposition home or self-care (01) ==
LOC: LAB.WCP 08:00
PROVIDERS: ATTEND Internal Medicine Nephrology
DX: K21.9 Gastro-esophageal reflux disease without esophagitis (principal); R11.2 Nausea with vomiting, unspecified; E21.1 Secondary hyperparathyroidism, not elsewhere classified; I48.91 Unspecified atrial fibrillation; R60.0 Localized edema; I12.9 Hypertensive chronic kidney disease with stage 1 through stage 4 chronic kidney disease, or unspecified chronic kidney disease; N18.3 Chronic kidney disease, stage 3 (moderate); D63.1 Anemia in chronic kidney disease; E78.5 Hyperlipidemia, unspecified; R80.9 Proteinuria, unspecified
CPT/HCPCS: 36415; 80069; 82043; 82570; 83540; 83970; 84466; 84550; 85027

== ENCOUNTER 2019-04-19 13:56 | Outpatient (CLI) | payer MEDICARE, BC ==
--- NOTE | 2019-04-22 15:59 | Ultrasound Report ---
Reason: CLAUDICATION, INTERMITTENT Procedure Date: 04/19/2019 Accession Number: [id number] / [id number] Procedure: US - Duplex Lwr Ext Arterial Bilat CPT Code: FULL RESULT: EXAM: Bilateral Lower Extremity Arterial Doppler Ultrasound EXAM DATE: 04/19/2019 02:14 PM. CLINICAL HISTORY: CLAUDICATION, INTERMITTENT. COMPARISON: None. TECHNIQUE: Real-time sonographic vascular imaging was performed by the government contracts manager, utilizing color-flow, Doppler flow, and spectral analysis. Multiple b2b outside sales representative static images were saved for review. FINDINGS: Right lower extremity arterial system: Suboptimal visualization of the distal superficial femoral artery without elevated velocities. Suboptimal visualization of the calf vessels with waveforms becoming monophasic in the anterior tibial and dorsalis pedis arteries. No high-grade stenosis was identified. Left lower extremity arterial system: Suboptimal visualization of the calf vessels with monophasic waveform in the dorsalis pedis artery. No high-grade stenosis was identified. Right Leg: CALENDER TENDER: PSV 125 cm/sec. Biphasic waveform. PSFA: PSV 81 cm/sec. Biphasic waveform. MSFA: PSV 94 cm/sec. Biphasic waveform. DSFA: PSV 90 cm/sec. Biphasic waveform. PFA: PSV 162 cm/sec. Biphasic waveform. POP: PSV 66 cm/sec. Biphasic waveform. HUY: PSV 37 cm/sec. Monophasic waveform. MYSQL DATABASE ADMINISTRATOR: PSV 17 cm/sec. Monophasic waveform. PER: PSV 92 cm/sec. Biphasic waveform. DPA: PSV 21 cm/sec. Monophasic waveform. Left Leg: CALENDER TENDER: PSV 137 cm/sec. Biphasic waveform. PSFA: PSV 114 cm/sec. Biphasic waveform. MSFA: PSV 128 cm/sec. Biphasic waveform. DSFA: PSV 52 cm/sec. Biphasic waveform. PFA: PSV 149 cm/sec. Biphasic waveform. POP: PSV 38 cm/sec. Biphasic waveform. HUY: PSV 24 cm/sec. Biphasic waveform. MYSQL DATABASE ADMINISTRATOR: PSV 60 cm/sec. Biphasic waveform. PER: PSV 49 cm/sec. Biphasic to Monophasic waveform. DPA: PSV 46 cm/sec. Monophasic waveform. IMPRESSION: 1. No high-grade stenosis identified. 2. Suboptimal evaluation of calf arteries with monophasic waveforms in the dorsalis pedis arteries indicating atherosclerotic disease without a high-grade focal stenosis identified. [facility]
== END 2019-04-19 13:57 | disposition home or self-care (01) ==
LOC: DI 13:56
PROVIDERS: ATTEND Family Medicine
DX: I73.9 Peripheral vascular disease, unspecified (principal)
CPT/HCPCS: 93925

== ENCOUNTER 2019-04-23 08:00 | Outpatient (CLI) | payer MEDICARE, BC | END 2019-04-23 23:59 | disposition home or self-care (01) | LOC: LAB.WCP 08:00 | PROVIDERS: ATTEND Family Medicine | DX: Z79.01 Long term (current) use of anticoagulants (principal); I48.92 Unspecified atrial flutter ==

== ENCOUNTER 2019-05-03 10:14 | Outpatient (CLI) | payer MEDICARE, BC ==
[2019-05-03 12:08] LABS: BASOPHILS % (AUTO) 0.7 %; EOSINOPHILS # (AUTO) 0.3 10^3/uL (0.0-0.7); EOSINOPHILS % (AUTO) 4.9 %; LYMPHOCYTES % (AUTO) 16.3 %; MEAN CORPUSCULAR HEMOGLOBIN 31.3 pg (27.0-31.0); MEAN CORPUSCULAR HGB CONC 32.3 g/dL (32.0-36.0); MEAN CORPUSCULAR VOLUME 97.1 fL (80.0-94.0); MEAN PLATELET VOLUME 10.8 fL (7.4-11.4); NEUTROPHILS # (AUTO) 3.7 10^3/uL (1.5-6.6); NEUTROPHILS % (AUTO) 61.6 %; PLT - PLATELET COUNT 186 10^3/uL (130-450); RED BLOOD COUNT 4.15 10^6/uL (4.70-6.10); RED CELL DISTRIBUTION WIDTH 15.2 % (12.0-15.0)
[2019-05-03 13:03] LABS: ALBUMIN 3.6 g/dL (3.2-5.5); ALBUMIN/GLOBULIN RATIO 1.1 (1.0-2.2); ALKALINE PHOSPHATASE 92 IU/L (42-121); ALT ALANINE AMINOTRANSFERASE 41 IU/L (10-60); AST ASPARTATE AMINOTRANSFERASE 28 IU/L (10-42); BILIRUBIN,TOTAL 0.8 mg/dL (0.2-1.0); BUN - BLOOD UREA NITROGEN 46 mg/dL (6-20); CHOL/HDL RATIO 4.5 (<5.0); CHOLESTEROL 170 mg/dL; CREATININE 2.2 mg/dL (0.6-1.2); GFR - MDRD 29 (>89); HDL CHOLESTEROL 38 mg/dL; LDL CHOLESTEROL,CALCULATED 108 mg/dL; LDL/HDL RATIO 2.8 (<3.6); VLDL CHOLESTEROL 24 mg/dL
[2019-05-03 13:13] LABS: CALCIUM 10.6 mg/dL (8.5-10.3); CARBON DIOXIDE - CO2 29 mmol/L (21-32); CHLORIDE 106 mmol/L (101-111); GLUCOSE 121 mg/dL (70-100); SODIUM 144 mmol/L (135-145)
== END 2019-05-03 23:59 | disposition home or self-care (01) ==
LOC: LAB.WCP 10:14
PROVIDERS: ATTEND Family Medicine
DX: E11.22 Type 2 diabetes mellitus with diabetic chronic kidney disease (principal); I12.9 Hypertensive chronic kidney disease with stage 1 through stage 4 chronic kidney disease, or unspecified chronic kidney disease; N18.3 Chronic kidney disease, stage 3 (moderate)
CPT/HCPCS: 36415; 80053; 80061; 83721; 84443; 85025

== ENCOUNTER 2019-06-12 08:00 | Outpatient (CLI) | payer MEDICARE, BC | END 2019-06-12 23:59 | disposition home or self-care (01) | LOC: LAB.WCP 08:00 | PROVIDERS: ATTEND Family Medicine | DX: I48.91 Unspecified atrial fibrillation (principal); Z79.01 Long term (current) use of anticoagulants ==

== ENCOUNTER 2019-07-10 08:00 | Outpatient (CLI) | payer MEDICARE, BC | END 2019-07-10 23:59 | disposition home or self-care (01) | LOC: LAB.WCP 08:00 | PROVIDERS: ATTEND Family Medicine | DX: Z79.01 Long term (current) use of anticoagulants (principal); I48.92 Unspecified atrial flutter ==

== ENCOUNTER 2019-08-05 10:27 | Outpatient (CLI) | payer MEDICARE, BC ==
[2019-08-05 13:18] LABS: ALBUMIN 3.5 g/dL (3.2-5.5); ALBUMIN/GLOBULIN RATIO 1.1 (1.0-2.2); BILIRUBIN,TOTAL 0.9 mg/dL (0.2-1.0); CREATININE 2.7 mg/dL (0.6-1.2); TOTAL PROTEIN 6.8 g/dL (6.7-8.2)
[2019-08-05 13:21] LABS: BASOPHILS % (AUTO) 0.8 %; EOSINOPHILS # (AUTO) 0.3 10^3/uL (0.0-0.7); EOSINOPHILS % (AUTO) 6.5 %; HB2 TOTAL 12.7 g/dL; HEMOGLOBIN A1C 0.59 g/dL; HEMOGLOBIN A1C % 6.4 % (4.6-6.2); HGB - HEMOGLOBIN 12.2 g/dL (14.0-18.0); LYMPHOCYTES # (AUTO) 1.1 10^3/uL (1.5-3.5); LYMPHOCYTES % (AUTO) 22.1 %; MEAN CORPUSCULAR HGB CONC 31.2 g/dL (32.0-36.0); MEAN CORPUSCULAR VOLUME 99.5 fL (80.0-94.0); MEAN PLATELET VOLUME 11.4 fL (7.4-11.4); MONOCYTES % (AUTO) 19.4 %; NEUTROPHILS # (AUTO) 2.6 10^3/uL (1.5-6.6); PLT - PLATELET COUNT 186 10^3/uL (130-450); RED BLOOD COUNT 3.93 10^6/uL (4.70-6.10); RED CELL DISTRIBUTION WIDTH 15.4 % (12.0-15.0); WHITE BLOOD COUNT 5.1 x10^3/uL (4.8-10.8)
[2019-08-05 13:39] LABS: CALCIUM 12.6 mg/dL (8.5-10.3)
== END 2019-08-05 23:59 | disposition home or self-care (01) ==
LOC: LAB.WCP 10:27
PROVIDERS: ATTEND Family Medicine
DX: I73.9 Peripheral vascular disease, unspecified (principal); E11.22 Type 2 diabetes mellitus with diabetic chronic kidney disease; I12.9 Hypertensive chronic kidney disease with stage 1 through stage 4 chronic kidney disease, or unspecified chronic kidney disease; N18.3 Chronic kidney disease, stage 3 (moderate); I48.91 Unspecified atrial fibrillation; E83.52 Hypercalcemia
CPT/HCPCS: 36415; 80053; 83036; 83970; 85025

== ENCOUNTER 2019-08-13 08:00 | Outpatient (CLI) | payer MEDICARE, BC | END 2019-08-13 23:59 | disposition home or self-care (01) | LOC: LAB.WCP 08:00 | PROVIDERS: ATTEND Family Medicine | DX: Z79.01 Long term (current) use of anticoagulants (principal); I48.91 Unspecified atrial fibrillation ==

== ENCOUNTER 2019-08-20 08:00 | Outpatient (CLI) | payer MEDICARE, BC | END 2019-08-20 23:45 | disposition home or self-care (01) | LOC: LAB.WCP 08:00 | PROVIDERS: ATTEND Family Medicine | DX: Z79.01 Long term (current) use of anticoagulants (principal); I48.91 Unspecified atrial fibrillation ==

== ENCOUNTER 2019-08-20 08:00 | Outpatient (CLI) | payer MEDICARE, BC ==
[2019-08-20 12:59] LABS: HGB - HEMOGLOBIN 12.5 g/dL (14.0-18.0); MEAN CORPUSCULAR HEMOGLOBIN 30.8 pg (27.0-31.0); MEAN CORPUSCULAR HGB CONC 30.9 g/dL (32.0-36.0); MEAN CORPUSCULAR VOLUME 99.8 fL (80.0-94.0); MEAN PLATELET VOLUME 10.7 fL (7.4-11.4); RED BLOOD COUNT 4.06 10^6/uL (4.70-6.10); WHITE BLOOD COUNT 5.9 x10^3/uL (4.8-10.8)
[2019-08-20 13:37] LABS: CREATININE,URINE 184.9 mg/dL; MICROALBUM/CREATININE RATIO,UR 291.5 ug/mg (<30.0); MICROALBUMIN,URINE 53.9 mg/dL (0-300.0)
[2019-08-20 13:42] LABS: ALBUMIN 3.7 g/dL (3.2-5.5); CALCIUM 12.9 mg/dL (8.5-10.3); PHOSPHORUS 3.2 mg/dL (2.5-4.6); URIC ACID 6.9 mg/dL (2.6-7.2)
== END 2019-08-20 23:59 | disposition home or self-care (01) ==
LOC: LAB.WCP 08:00
PROVIDERS: ATTEND Family Medicine
DX: D64.9 Anemia, unspecified (principal); E21.1 Secondary hyperparathyroidism, not elsewhere classified; N18.3 Chronic kidney disease, stage 3 (moderate); R80.9 Proteinuria, unspecified; Z79.01 Long term (current) use of anticoagulants; I48.91 Unspecified atrial fibrillation
CPT/HCPCS: 36415; 80069; 82043; 82570; 83540; 83970; 84466; 84550; 85027

== ENCOUNTER 2019-08-27 13:08 | Inpatient (IN) | payer MEDICARE, BC ==
[2019-08-27 15:01] LABS: BASOPHILS # (AUTO) 0.1 10^3/uL (0.0-0.1); BASOPHILS % (AUTO) 1.1 %; EOSINOPHILS # (AUTO) 0.5 10^3/uL (0.0-0.7); EOSINOPHILS % (AUTO) 7.5 %; HGB - HEMOGLOBIN 13.2 g/dL (14.0-18.0); LYMPHOCYTES # (AUTO) 1.4 10^3/uL (1.5-3.5); LYMPHOCYTES % (AUTO) 20.7 %; MEAN CORPUSCULAR HEMOGLOBIN 31.2 pg (27.0-31.0); MEAN CORPUSCULAR HGB CONC 31.4 g/dL (32.0-36.0); MEAN CORPUSCULAR VOLUME 99.5 fL (80.0-94.0); MEAN PLATELET VOLUME 10.4 fL (7.4-11.4); MONOCYTES # (AUTO) 1.1 10^3/uL (0.0-1.0); MONOCYTES % (AUTO) 15.6 %; NEUTROPHILS # (AUTO) 3.8 10^3/uL (1.5-6.6); NEUTROPHILS % (AUTO) 54.8 %; PLT - PLATELET COUNT 210 10^3/uL (130-450); RED BLOOD COUNT 4.23 10^6/uL (4.70-6.10); RED CELL DISTRIBUTION WIDTH 14.6 % (12.0-15.0)
[2019-08-27 15:02] LABS: VBG PH 7.378 (7.31-7.41)
[2019-08-27] MEDS ORDERED: SODIUM CHLORIDE 0.9% 1,000 ML IV ONE ×2 (15:08)
[2019-08-27 15:18] LABS: ALBUMIN 3.7 g/dL (3.2-5.5); BILIRUBIN,TOTAL 0.9 mg/dL (0.2-1.0); CREATININE 3.6 mg/dL (0.6-1.2); TOTAL PROTEIN 7.3 g/dL (6.7-8.2)
[2019-08-27] MEDS ORDERED: FUROSEMIDE 40 MG/4 ML VIAL IVP STA (15:47)
--- NOTE | 2019-08-27 16:02 | ED Physician Documentation ---
History of Present Illness - Stated complaint Stated Complaint: IV FLUIDS - PCP REFERRAL - Chief complaint Chief Complaint: General - History obtained from History obtained from: Patient, Family - History of Present Illness Timing: How many weeks ago (several) Pain level max: 3 Pain level now: 3 - Additonal information Additional information: 84-year-old male presents to the emergency department with worsening renal failure as well as worsening hypercalcemia over the past few weeks. He has gone more and more unsteady on his feet and feels more and more fatigued. He states he is "sleeping all the time". His manager benefit sent him here for IV fluids, Lasix and further evaluation of his hypercalcemia. No chest pain. No shortness of breath. No fevers. Review of Systems Ten Systems: 10 systems reviewed and negative Constitutional: denies: Fever, Chills GI: denies: Vomiting, Diarrhea : denies: Dysuria Skin: denies: Rash Musculoskeletal: denies: Neck pain, Back pain Neurologic: denies: Headache PD PAST MEDICAL HISTORY - Past Medical History Past Medical History: Yes Cardiovascular: Hypertension, High cholesterol, Atrial fibrillation Respiratory: None Neuro: Peripheral neuropathy Endocrine/Autoimmune: Type 2 diabetes GI: GERD : Renal insuffiency HEENT: None Psych: None Musculoskeletal: Rheumatoid arthritis, Gout Derm: None - Past Surgical History Past Surgical History: Yes General: Cholecystectomy HEENT: Tonsil/Adenoidectomy - Present Medications Home Medications: Ambulatory Orders Medication Instructions Recorded Confirmed Cyclobenzaprine [Flexeril] 10 mg PO TID PRN #20 tablet 08/18/17 Amiodarone [Pacerone] 100 mg PO DAILY 08/27/19 08/27/19 - Allergies Allergies/Adverse Reactions: Allergies Allergy/AdvReac Type Severity Reaction Status Date / Time acetaminophen [From Vicodin] Allergy Itching Verified 08/27/19 13:26 celecoxib [From Celebrex] Allergy Unknown Verified 08/27/19 13:26 cephalexin [From Keflex] Allergy Nausea Verified 08/27/19 13:26 codeine Allergy Itching Verified 08/27/19 13:26 hydrocodone [From Vicodin] Allergy Itching Verified 08/27/19 13:26 indomethacin Allergy Unknown Verified 08/27/19 13:26 NSAIDS (Non-Steroidal Allergy Unknown Verified 08/27/19 13:26 Anti-Inflamma rofecoxib [From Vioxx] Allergy Unknown Verified 08/27/19 13:26 sildenafil [From Viagra] Allergy Diaphoresis Verified 08/27/19 13:26 - Social History Does the pt smoke?: No Smoking Status: Never smoker Does the pt drink ETOH?: No Does the pt have substance abuse?: No - Immunizations Immunizations are current?: Yes - POLST Patient has POLST: No PD ED PE NORMAL - Vitals Vital signs reviewed: Yes - General General: Alert 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, No acute distress - HEENT HEENT: Moist mucous membranes - Neck Neck: Supple, no meningeal sign - Cardiac Cardiac: RRR - Respiratory Respiratory: No respiratory distress, Clear bilaterally - Abdomen Abdomen: Soft, Non tender, Non distended - Derm Derm: Warm and dry, No rash - Extremities Extremities: No edema - Neuro Neuro: Alert 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 Results - Vitals Vitals: Vital Signs - 24 hr 08/27/19 08/27/19 13:21 15:42 Temperature 36.4 C L 36.6 C Heart Rate 52 L 54 L Respiratory 18 18 Rate Blood Pressure 134/61 H 164/70 H O2 Saturation 98 96 Oxygen O2 Source Room air - Labs Labs: Laboratory Tests 08/27/19 08/27/19 08/27/19 14:55 14:55 14:55 WBC 7.0 RBC 4.23 L Hgb 13.2 L Hct 42.1 MCV 99.5 H MCH 31.2 H MCHC 31.4 L RDW 14.6 Plt Count 210 MPV 10.4 Neut # (Auto) 3.8 Lymph # (Auto) 1.4 L [place] # (Auto) 1.1 H Eos # (Auto) 0.5 Baso # (Auto) 0.1 Absolute Nucleated RBC 0.00 Nucleated RBC % 0.0 VBG pH 7.378 Ionized Calcium 1.72 H* Sodium 142 Potassium 3.9 Chloride 102 Carbon Dioxide 30 Anion Gap 10.0 BUN 40 H Creatinine 3.6 H Estimated GFR (MDRD) 16 L Glucose 93 Calcium 14.0 H* Total Bilirubin 0.9 AST 23 ALT 32 Alkaline Phosphatase 124 H Total Protein 7.3 Albumin 3.7 Globulin 3.6 Albumin/Globulin Ratio 1.0 Lipase 194 H PD MEDICAL DECISION MAKING - ED course Complexity details: reviewed results, re-evaluated patient, considered differential, d/w patient, d/w family, d/w sql consultant ED course: Patient given IV fluids, Lasix. No acute EKG findings. Unclear etiology of the acute renal failure and hypercalcemia. Will need further care as an inpatient. Patient is also very weak. Discussed the case with Dr. Kemp, hospitalist who accepts. This document was made in part using voice recognition software. While efforts are made to proofread this document, sound alike and grammatical errors may occur. Departure - Departure Disposition: 66 [facility] DC/Xfer Clinical Impression: Hypercalcemia Acute renal failure Qualifiers: Acute renal failure type: unspecified Qualified Code(s): N17.9 - Acute kidney failure, unspecified Condition: Stable Discharge Date/Time: 08/27/19 17:57
[2019-08-27] MEDS ORDERED: ZOLPIDEM 5 MG TABLET PO PRN (17:26)
[2019-08-27] MEDS ORDERED: SODIUM CHLORIDE FLUSH 0.9% 10 ML SYRINGE IVP PRN (17:26)
[2019-08-27] MEDS ORDERED: ONDANSETRON 4 MG/2 ML VIAL IVP PRN (17:26)
[2019-08-27] MEDS ORDERED: traMADol 50 MG TABLET PO PRN (17:31)
--- NOTE | 2019-08-27 17:36 | HISTORY & PHYSICAL EXAMINATION ---
Chief Complaint - Chief Complaint Chief Complaint: hypercalcemia History of Present Illness - History of Present Illness HPI Comment/Other: is a 84-yrs-old male with a PMH significant for CKD stage 4, DM2, afib with Coumadin, HTN, Gout, HLD, GERD, who present ER for complain of worsening renal function and elevated calcium serum level. Pt report he being treated by Nephrology Dr. Maciel in [place] for decreased kidney function, and he was called to come in hospital to correct a calcium build up. pt report he was found to have decreased renal function and elevated calcium for over months, he state his budget and policy analyst and PCP Dr. Rodriguez did not find the reason why his renal function , and Dr. Rodriguez refer pt to see compliance mgr, and pt had appointment to see compliance mgr. Pt also complain of general weakness and lack of energy, unsteady walk as his chronic condition. He also states he is "sleeping all the time". pt denies chest pain, fever, chill, shortness of breath, headache, vision change. Route lab test reveals creatinine is 3.6 and calcium is 14. pt is admitted for above medical reason. History - Past Medical History Cardiovascular: reports: Hypertension, High cholesterol, Atrial fibrillation Respiratory: reports: None Neuro: reports: Peripheral neuropathy Endocrine/Autoimmune: reports: Type 2 diabetes GI: reports: GERD : reports: Renal insuffiency HEENT: reports: None Psych: reports: None Musculoskeletal: reports: Rheumatoid arthritis, Gout Derm: reports: None MRSA Hx?: Yes - Past Surgical History General: reports: Cholecystectomy HEENT: reports: Tonsil/Adenoidectomy - Family & Social History Family History: Mother: , CAD, Father: , Cancer Family History Comment/Other: pt report his father from lung cancer, his mother from heart failure. pt's brother from kidney failure complications. Living arrangement: At home Living Situation: With spouse/s.o. Social History Notes: pt denies hx of smoking, alcohol and drug abuse problem. - POLST Patient has POLST: No Meds/Allgy - Home Medications Home Medications: Ambulatory Orders Medication Instructions Recorded Confirmed Allopurinol [Zyloprim] 300 mg PO DAILY 08/27/19 08/28/19 Amiodarone [Pacerone] 100 mg PO DAILY 08/27/19 08/27/19 Furosemide [Lasix] 40 mg PO DAILY 08/27/19 08/28/19 Glimepiride 2 mg PO DAILY 08/27/19 08/28/19 Metoprolol Tartrate 100 mg PO BID 08/27/19 08/28/19 Omeprazole 20 mg PO DAILY 08/27/19 08/28/19 Warfarin [Coumadin] 5 mg PO TUTHSA 08/27/19 08/28/19 Atorvastatin Calcium 20 mg PO QPM 08/28/19 08/28/19 Meclizine HCl 25 mg PO TID PRN 08/28/19 08/28/19 Telmisartan [Micardis] 40 mg PO DAILY 08/28/19 08/28/19 Warfarin [Coumadin] 2.5 mg PO SUMOWEFR 08/28/19 08/28/19 raNITIdine HCl [Ranitidine HCl] 300 mg PO QPM 08/28/19 08/28/19 - Allergies Allergies/Adverse Reactions: Allergies Allergy/AdvReac Type Severity Reaction Status Date / Time celecoxib [From Celebrex] Allergy Unknown Verified 08/27/19 13:26 cephalexin [From Keflex] Allergy Nausea Verified 08/27/19 13:26 codeine Allergy Itching Verified 08/27/19 13:26 hydrocodone [From Vicodin] Allergy Itching Verified 08/27/19 13:26 indomethacin Allergy Unknown Verified 08/27/19 13:26 NSAIDS (Non-Steroidal Allergy Unknown Verified 08/27/19 13:26 Anti-Inflamma rofecoxib [From Vioxx] Allergy Unknown Verified 08/27/19 13:26 sildenafil [From Viagra] Allergy Diaphoresis Verified 08/27/19 13:26 Review of Systems - Constitutional Constitutional: reports: Fatigue, Weakness. denies: Fever, Chills, Malaise, Poor appetite, Diaphoresis, Night sweats - Eyes Eyes: denies: Pain, Irritation, Amaurosis, Blurred vision, Spots in vision, Field loss, Vision loss, Dipolpia - Ears, Nose & Throat Ears, Nose & Throat: denies: Ear pain, Hearing loss, Hearing aids, Tinnitus, Vertigo, Nasal pain, Nasal discharge, Nosebleeds, Nasal obstruction, Nasal congestion, Postnasal drainage, Sore throat, Hoarseness - Cardiovascular Cariovascular: denies: Irregular heart rate, Palpitations, Chest pain, Edema, Lightheadedness, Syncope, Exertional dyspnea, Decr. exercise tolerance - Respiratory Respiratory: denies: Cough, Sputum production, Wheezing, Snoring, Hemoptysis, Orthopnea, SOB at rest, SOB with exertion - Gastrointestinal Gastrointestinal: denies: Abdominal pain, Abdominal distention, Constipation, Rectal bleeding, Black stools, Bloody stools, Nausea, Vomiting, Bile emesis, Jose blood emesis, Coffee grounds emesis, Reflux/heartburn - Genitourinary Genitourinary: denies: Dysuria, Frequency, Urgency, Hematuria, Incontinence, Flank pain, Nocturia, Urethral discharge - Musculoskeletal Musculoskeletal: denies: Muscle pain, Back pain, Muscle aches, Stiffness, Limi libby range of motion, Muscle weakness, Gout, Joint pain - Integumentary Integumentary: denies: Rash, Pruritis, Lesions, Dryness, Lumps, Acne, Pigment changes, Nail changes - Neurological Neurological: reports: General weakness. denies: Focal weakness, Headache, Dizziness, Numbness, Memory problems, Pre-existing deficit, Abnormal gait, Seizures, Incoordination, Slurred speech - Psychiatric Psychiatric: denies: Depression, Anxiety, Suicidal, Delusions, Hallucinations, Homicidal - Endocrine Endocrine: denies: Polyuria, Polydypsia, Polyphagia, Intolerance to cold - Hematologic/Lymphatic Hematologic/Lymphatic: denies: Anemia, Bruising, Petechiae, Blood clots, Lymphadenopathy, Bleeding tendencies Exam - Vital Signs Reviewed Vital Signs: Yes Vital Signs: Vital Signs x48h Temp Pulse Resp BP Pulse Ox 08/27/19 16:50 59 L 16 137/87 H 100 08/27/19 15:42 36.6 C 54 L 18 164/70 H 96 08/27/19 13:21 36.4 C L 52 L 18 134/61 H 98 - Physical Exam General Appearance: positive: No acute distress, Alert. negative: Lethargic Eyes Bilateral: positive: Normal inspection, PERRL, EOMI, No lid inflammation ENT: positive: ENT inspection nml, Pharynx nml, No signs of dehydration. negative: Purulent nasal drainage Neck: positive: Nml inspection, Thyroid nml, No JVD, Trachea midline. negative: Thyromegaly, Lymphadenopathy (R), Lymphadenopathy (L), Stiff neck, Tracheal deviation Respiratory: positive: Chest non-tender, No respiratory distress, Breath sounds nml. negative: Wheezes, Rales, Rhonchi Cardiovascular: positive: Regular rate & rhythm, No murmur, No gallop. negative: Irregularly irregular, Extrasystoles, Tachycardia, Bradycardia, JVD present, Systolic murmur, Diastolic murmur Peripheral Pulses: positive: 2+ Abdomen: positive: Non-tender, No organomegaly, Nml bowel sounds, No distention. negative: Tenderness, Guarding, Rebound Back: positive: Nml inspection. negative: CVA tenderness (R), CVA tenderness (L) Skin: positive: Color nml, No rash, Warm, Dry. negative: Cyanosis, Diaphoresis, Pallor, Skin rash Extremities: positive: Non-tender, Full ROM, Nml appearance. negative: Calf tenderness, Caterina's sign/cords Neurologic/Psychiatric: positive: Oriented x3, Motor nml, Sensation nml, Mood/affect nml. negative: Weakness, Sensory loss, Facial droop, Slurred/abnml speech, Depressed mood/affect Sepsis Event Note (H) - Evaluation Current Stage of Sepsis: Ruled out Conclusion/Plan - Problem List (1) RENNY (acute kidney injury) Conclusion/Plan: pt clinically present dehydration, dry mouth, and poor skin turgor, and elevated creatinine to 3.6 hold Lasix start on INF of NS lab monitor hold nephrological toxical agents advise pt followup budget and policy analyst. (2) Hypercalcemia Conclusion/Plan: pt's calcium is 14 today, pt denies palpitation, chest pain. EKG reveals NSR. it is likely caused by worsen renal function plan: hydration with NS, lab closely monitor, and with tele and vital monitor (3) Weakness Conclusion/Plan: pt has CKD stage 4. pt report worsening weakness consult with PT/OT, fall precaution. (4) Diabetes Conclusion/Plan: pt's glucose is 93, with hx of DM2. plan: check A1C, start slide scale, ACHS, and hypoglycemia protocol (5) HTN (hypertension) Conclusion/Plan: stable, resume home Metoprolol and Micardis vital monitor (6) GERD (gastroesophageal reflux disease) Conclusion/Plan: start with pepcid, resume home Protonix (7) Afib Conclusion/Plan: pt's Afib is controlled. resume home Metoprolol, check PT/INR then resume Coumadin as well. (8) Full code status Conclusion/Plan: pt request full code - Lab Results Fish Bones: 08/28/19 05:10 08/28/19 05:10 Core Measures - Anticipated LOS I expect patient to be DC'd or transferred within 96 hours.: Yes - DVT/VTE - Prophylaxis VTE/DVT Device ordered at admit?: Yes VTE/DVT Prophylaxis med ordered at admit?: Yes
[2019-08-27 18:04] LABS: HB2 TOTAL 13.5 g/dL; HEMOGLOBIN A1C 0.59 g/dL; HEMOGLOBIN A1C % 6.1 % (4.6-6.2)
[2019-08-27] MEDS: SODIUM CHLORIDE 0.9% 1,000 ML IV SCH (19:32)
[2019-08-27 20:39] LABS: INR 2.5 (0.8-1.2); PT - PROTHROMBIN TIME 27.3 secs (9.9-12.6)
[2019-08-27] MEDS ORDERED: NON FORMULARY MED PO SCH (21:00)
[2019-08-27] MEDS ORDERED: WARFARIN 5 MG TABLET PO SCH (21:00)
[2019-08-27] MEDS: HEPARIN 5,000 UNIT/ML VIAL SUBQ SCH (21:32)
[2019-08-27] MEDS: METOPROLOL TARTRATE 50 MG TABLET PO SCH (21:34)
[2019-08-27] MEDS: FAMOTIDINE 20 MG TABLET PO SCH (21:35)
[2019-08-27] MEDS: ATORVASTATIN 40 MG TABLET PO SCH (21:35)
[2019-08-28] MEDS: SODIUM CHLORIDE FLUSH 0.9% 10 ML SYRINGE IVP SCH ×3 (01:14→17:16)
[2019-08-28] MEDS: SODIUM CHLORIDE 0.9% 1,000 ML IV SCH ×3 (01:18→19:48)
[2019-08-28 05:39] LABS: BASOPHILS # (AUTO) 0.1 10^3/uL (0.0-0.1); BASOPHILS % (AUTO) 0.9 %; EOSINOPHILS # (AUTO) 0.4 10^3/uL (0.0-0.7); EOSINOPHILS % (AUTO) 7.1 %; HGB - HEMOGLOBIN 12.1 g/dL (14.0-18.0); LYMPHOCYTES # (AUTO) 1.5 10^3/uL (1.5-3.5); MEAN CORPUSCULAR HEMOGLOBIN 31.1 pg (27.0-31.0); MEAN CORPUSCULAR HGB CONC 31.7 g/dL (32.0-36.0); MEAN CORPUSCULAR VOLUME 98.2 fL (80.0-94.0); MEAN PLATELET VOLUME 10.6 fL (7.4-11.4); MONOCYTES % (AUTO) 16.6 %; NEUTROPHILS # (AUTO) 2.9 10^3/uL (1.5-6.6); NEUTROPHILS % (AUTO) 49.1 %; PLT - PLATELET COUNT 183 10^3/uL (130-450); RED BLOOD COUNT 3.89 10^6/uL (4.70-6.10); RED CELL DISTRIBUTION WIDTH 14.6 % (12.0-15.0); WHITE BLOOD COUNT 5.8 x10^3/uL (4.8-10.8)
[2019-08-28 06:21] LABS: ALBUMIN 3.2 g/dL (3.2-5.5); BILIRUBIN,TOTAL 0.5 mg/dL (0.2-1.0); CREATININE 3.3 mg/dL (0.6-1.2); TOTAL PROTEIN 6.5 g/dL (6.7-8.2)
[2019-08-28 06:22] LABS: CALCIUM 13.1 mg/dL (8.5-10.3)
[2019-08-28] MEDS: HEPARIN 5,000 UNIT/ML VIAL SUBQ SCH ×2 (08:06→21:14)
[2019-08-28] MEDS: AMIODARONE 200 MG TABLET PO SCH (08:08)
[2019-08-28] MEDS: METOPROLOL TARTRATE 50 MG TABLET PO SCH (08:08)
[2019-08-28] MEDS ORDERED: hydrALAZINE INJ 20 MG/ML VIAL IVP PRN (08:12)
[2019-08-28 08:54] LABS: INR 2.6 (0.8-1.2); PT - PROTHROMBIN TIME 27.7 secs (9.9-12.6)
[2019-08-28 09:04] LABS: HB2 TOTAL 11.9 g/dL; HEMOGLOBIN A1C 0.5 g/dL
[2019-08-28] MEDS: INSULIN ASPART 300 UNIT/3 ML PEN SUBQ SCH ×4 (09:05→21:21)
--- NOTE | 2019-08-28 09:24 | PHARMACY PROGRESS NOTE ---
- Best Possible Medication History Admit Date and Time: 08/27/19 3885 Processed by: Pharmacy Medication History completed: Yes Patient Interview: Completed Secondary Source(s): Physician records, Pharmacy records As the person ultimately responsible for medication therapy, providers are able to order a medication from an existing home medication list in [facility] via the "Reconcile Routine" prior to Confirmation of that medication by director sales support. Such practice is discouraged except when the physician, in their clinical judgment, deems that a medical need exists for a medication without regard to previous use.
[2019-08-28] MEDS ORDERED: MECLIZINE 12.5 MG TABLET PO PRN (10:24)
[2019-08-28] MEDS: LOSARTAN 50 MG TABLET PO SCH (11:21)
--- NOTE | 2019-08-28 12:22 | PROVIDER PROGRESS NOTE ---
Assessment/Plan - Problem List (1) RENNY (acute kidney injury) Assessment/Plan: 08/28 improved. today his creatinine is 3.3 from 3.6 on yesterday. 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 (2) Hypercalcemia Conclusion/Plan: 08/28 improved. today his calcium is 13.1 from 14. continue IVF and lab monitor pt's calcium is 14 today, pt denies palpitation, chest pain. EKG reveals NSR. it is likely caused by worsen renal function plan: hydration with NS, lab closely monitor, and with tele and vital monitor (3) Weakness Conclusion/Plan: 08/28 PT/OT will evaluate and treat pt, will followup pt has CKD stage 4. recently report he has more weakness. pt report worsening weakness consult with PT/OT, fall precaution. (4) Diabetes Conclusion/Plan: 08/28 pt's A1C is 6, her glucose level is slight low. pt had no insulin. encourage pt eat enough. and continue ACHS, and hypoglycemia protocol. will followup his glucose level test, it might be low glucose level to cause his weakness. pt might not need his home DM meds, will followup daily pt's glucose is 93, with hx of DM2. plan: check A1C, start slide scale, ACHS, and hypoglycemia protocol (5) HTN (hypertension) Conclusion/Plan: stable, resume home Metoprolol and Micardis vital monitor (6) GERD (gastroesophageal reflux disease) Conclusion/Plan: start with pepcid, resume home Protonix (7) Afib Conclusion/Plan: 08/28 pt's INR is 2.7 today, will hold Coumadin today pt's Afib is controlled. resume home Metoprolol, check PT/INR then resume Coumadin as well. - Current Meds Current Meds: Current Medications Generic Name Dose Route Start Last Admin Trade Name Freq PRN Reason Stop Dose Admin Amiodarone HCl 100 mg 08/28/19 09:00 08/28/19 08:08 Pacerone PO 100 mg DAILY GWEND[facility] Administration Atorvastatin Calcium 20 mg 08/27/19 21:00 08/27/19 21:35 Lipitor PO 20 mg QPM GWENDOL[facility] Administration Famotidine 20 mg 08/27/19 21:00 08/27/19 21:35 Pepcid PO 20 mg QPM GWENDOLYN Administration Heparin Sodium (Porcine) 5,000 unit 08/27/19 21:00 08/28/19 08:06 SUBQ 5,000 unit BID GWENDOLYN Administration Sodium Chloride 1,000 mls @ 125 mls/hr 08/27/19 18:00 08/28/19 09:10 Normal Saline 0.9% IV 125 mls/hr .Q8H GWENDOLYN Administration Insulin Aspart 1 - 5 unit 08/28/19 09:00 08/28/19 11:21 Novolog SUBQ 1 unit 0800,1200,1700,2100 GWENDOLYN Administration Protocol Losartan Potassium 50 mg 08/28/19 11:00 08/28/19 11:21 Cozaar PO 50 mg DAILY [facility] Administration Metoprolol Tartrate 100 mg 08/27/19 21:00 08/28/19 08:08 Lopressor PO 100 mg BID GWENDOLYN Administration Sodium Chloride 10 ml 08/28/19 01:00 08/28/19 01:14 Normal Saline Flush 0.9% IVP Not Given 0100,0900,1700 GWENDOLYN - Lab Result Fish Bone Diagrams: 08/28/19 05:10 08/28/19 05:10 - Additional Planning My Orders: My Active Orders 08/27/19 17:26 Activity Orders [RC] Q2HR IO [RC] IOSHIFT Initiate Bowel Care Protocol [RC] .protocol Initiate Line Care Protocol [RC] QSHIFT Initiate Personal Care Protoco [RC] .protocol Oxygen Therapy [RC] Routine Telemetry- [RC] Q4HR Vital Signs [RC] Q4HR Ondansetron Inj [Zofran Inj] 4 mg IVP Q6HR PRN Sodium Chloride Flush 0.9% [Normal Saline Flush 0.9%] 10 ml IVP PRN PRN Zolpidem [Ambien] 5 mg PO QPM PRN Code Status [OTHERS] Routine Condition of Patient [OTHERS] Routine DVT Prophylaxis [OTHERS] Routine 08/27/19 17:28 IV Insert [RC] .ONCE 08/27/19 17:29 SCDs [RC] QSHIFT 08/27/19 18:00 Sodium Chloride 0.9% [Normal Saline 0.9%] 1,000 ml IV 125 mls/hr 08/27/19 21:00 Famotidine [Pepcid] 20 mg PO QPM Heparin 5,000 unit SUBQ BID 08/27/19 Dinner Low Sodium Diet [DIET] 08/28/19 01:00 Sodium Chloride Flush 0.9% [Normal Saline Flush 0.9%] 10 ml IVP 0100,0900,1700 08/28/19 08:12 hydrALAZINE INJ [Apresoline Inj] 10 mg IVP QID PRN 08/28/19 08:18 Blood Glucose Checks - Eating [RC] 0800,1200,1700,2100 Initiate Hypoglycemia Protocol [RC] .protocol 08/28/19 09:00 Amiodarone [Pacerone] 100 mg PO DAILY Insulin Aspart [NovoLOG] 1 - 5 unit SUBQ 0800,1200,1700,2100 08/28/19 10:24 Meclizine [Antivert] 25 mg PO TID PRN 08/28/19 11:00 Losartan [Cozaar] 50 mg PO DAILY 08/28/19 15:00 BMP - BASIC METABOLIC PANEL [CHEM] Timed 08/29/19 05:00 CBC - COMP BLD CT W/AUTO DIFF [HEME] DAILYLAB CMP [COMPREHENSIVE METABOLIC PANEL] [CHEM] DAILYLAB PT WITH INR [COAG] DAILYLAB 08/29/19 07:00 Pantoprazole [Protonix] 40 mg PO QDAC 08/30/19 05:00 CBC - COMP BLD CT W/AUTO DIFF [HEME] DAILYLAB CMP [COMPREHENSIVE METABOLIC PANEL] [CHEM] DAILYLAB PT WITH INR [COAG] DAILYLAB 08/31/19 05:00 CBC - COMP BLD CT W/AUTO DIFF [HEME] DAILYLAB CMP [COMPREHENSIVE METABOLIC PANEL] [CHEM] DAILYLAB PT WITH INR [COAG] DAILYLAB 09/01/19 05:00 PT WITH INR [COAG] DAILYLAB Subjective - Subjective Patient Reports: Feeling Better Objective Vital Signs: Vital Signs - 24 hr 08/27/19 08/27/19 08/27/19 13:21 15:42 16:50 Temperature 36.4 C L 36.6 C Heart Rate 52 L 54 L 59 L Heart Rate [ Brachial] Heart Rate [ Sitting] Heart Rate [ Supine] Respiratory 18 18 16 Rate Blood Pressure 134/61 H 164/70 H 137/87 H Blood Pressure [Right Brachial artery] Blood Pressure [Sitting] Blood Pressure [Supine] O2 Saturation 98 96 100 08/27/19 08/27/19 08/27/19 18:05 21:00 21:34 Temperature 36.3 C L 36.6 C Heart Rate Heart Rate [ 58 L 63 Brachial] Heart Rate [ Sitting] Heart Rate [ Supine] Respiratory 16 16 Rate Blood Pressure 174/60 H Blood Pressure 150/68 H 174/60 H [Right Brachial artery] Blood Pressure [Sitting] Blood Pressure [Supine] O2 Saturation 98 97 08/28/19 08/28/19 08/28/19 01:42 04:05 07:40 Temperature 36.6 C 36.9 C 36.7 C Heart Rate Heart Rate [ 55 L 60 82 Brachial] Heart Rate [ Sitting] Heart Rate [ Supine] Respiratory 16 16 18 Rate Blood Pressure Blood Pressure 163/71 H 148/70 H 167/69 H [Right Brachial artery] Blood Pressure [Sitting] Blood Pressure [Supine] O2 Saturation 95 95 95 08/28/19 08/28/19 08/28/19 08:08 11:05 11:10 Temperature 36.4 C L Heart Rate Heart Rate [ 54 L Brachial] Heart Rate [ 58 L Sitting] Heart Rate [ 54 L Supine] Respiratory 18 Rate Blood Pressure 167/69 H Blood Pressure 146/60 H [Right Brachial artery] Blood Pressure 154/65 H [Sitting] Blood Pressure 132/62 H [Supine] O2 Saturation 94 Oxygen O2 Source Room air I&O (Last 24 Hrs): Intake and Output Totals x24h 08/26/19 08/27/19 08/28/19 23:59 23:59 23:59 Intake Total 1787.5 2012.5 Output Total 1700 800 Balance 87.5 1212.5 General: Alert, Oriented x3, No acute distress HEENT: Atraumatic Neck: Supple Lymphatic: no adenopathy Neuro: Alert, Non Focal, Oriented Times 3 Cardiovascular: Regular rate, Normal S1, Normal S2 Respiratory: Chest non-tender, No respiratory distress, Breath sounds nml Abdomen: Normal bowel sounds, Soft Extremities: No edema, Normal pulses - Results Results: Laboratory Results WBC 5.8 x10^3/uL (4.8-10.8) 08/28/19 05:10 RBC 3.89 10^6/uL (4.70-6.10) L 08/28/19 05:10 Hgb 12.1 g/dL (14.0-18.0) L 08/28/19 05:10 Hct 38.2 % (42.0-52.0) L 08/28/19 05:10 MCV 98.2 fL (80.0-94.0) H 08/28/19 05:10 MCH 31.1 pg (27.0-31.0) H 08/28/19 05:10 MCHC 31.7 g/dL (32.0-36.0) L 08/28/19 05:10 RDW 14.6 % (12.0-15.0) 08/28/19 05:10 Plt Count 183 10^3/uL (130-450) 08/28/19 05:10 MPV 10.6 fL (7.4-11.4) 08/28/19 05:10 Neut # (Auto) 2.9 10^3/uL (1.5-6.6) 08/28/19 05:10 Lymph # (Auto) 1.5 10^3/uL (1.5-3.5) 08/28/19 05:10 [place] # (Auto) 1.0 10^3/uL (0.0-1.0) 08/28/19 05:10 Eos # (Auto) 0.4 10^3/uL (0.0-0.7) 08/28/19 05:10 Baso # (Auto) 0.1 10^3/uL (0.0-0.1) 08/28/19 05:10 Absolute Nucleated RBC 0.00 x10^3/uL 08/28/19 05:10 Nucleated RBC % 0.0 /100WBC 08/28/19 05:10 PT 27.7 secs (9.9-12.6) H 08/28/19 08:38 INR 2.6 (0.8-1.2) H 08/28/19 08:38 VBG pH 7.378 (7.31-7.41) 08/27/19 14:55 Ionized Calcium 1.72 mmol/L (1.15-1.33) H* 08/27/19 14:55 Sodium 146 mmol/L (135-145) H 08/28/19 05:10 Potassium 3.5 mmol/L (3.5-5.0) 08/28/19 05:10 Chloride 106 mmol/L (101-111) 08/28/19 05:10 Carbon Dioxide 29 mmol/L (21-32) 08/28/19 05:10 Anion Gap 11.0 (6-13) 08/28/19 05:10 BUN 37 mg/dL (6-20) H 08/28/19 05:10 Creatinine 3.3 mg/dL (0.6-1.2) H 08/28/19 05:10 Estimated GFR (MDRD) 18 (>89) L 08/28/19 05:10 Glucose 64 mg/dL (70-100) L 08/28/19 05:10 POC Whole Bld Glucose 165 mg/dL (70 - 100) H 08/28/19 11:04 Glycated Hemoglobin 6.0 % (4.6-6.2) 08/28/19 05:10 Estim Average Glucose 126 (70-100) H 08/28/19 05:10 Calcium 13.1 mg/dL (8.5-10.3) H* 08/28/19 05:10 Total Bilirubin 0.5 mg/dL (0.2-1.0) 08/28/19 05:10 AST 23 IU/L (10-42) 08/28/19 05:10 ALT 28 IU/L (10-60) 08/28/19 05:10 Alkaline Phosphatase 114 IU/L (42-121) 08/28/19 05:10 Total Protein 6.5 g/dL (6.7-8.2) L 08/28/19 05:10 Albumin 3.2 g/dL (3.2-5.5) 08/28/19 05:10 Globulin 3.3 g/dL (2.1-4.2) 08/28/19 05:10 Albumin/Globulin Ratio 1.0 (1.0-2.2) 08/28/19 05:10 Lipase 194 U/L (22-51) H 08/27/19 14:55 Sepsis Event Note (H) - Evaluation Current Stage of Sepsis: Ruled out ABX Reporting Has patient been on IV antibiotics over the past 48 hours?: No Current Medications - Current Medications Current Medications: Active Medications Amiodarone HCl (Pacerone) 100 mg PO DAILY [facility] Last Admin: 08/28/19 08:08 Dose: 100 mg Atorvastatin Calcium (Lipitor) 20 mg PO QPM [facility] Last Admin: 08/27/19 21:35 Dose: 20 mg Famotidine (Pepcid) 20 mg PO QPM [facility] Last Admin: 08/27/19 21:35 Dose: 20 mg Heparin Sodium (Porcine) () 5,000 unit SUBQ BID [facility] Last Admin: 08/28/19 08:06 Dose: 5,000 unit Hydralazine HCl (Apresoline Inj) 10 mg IVP QID PRN PRN Reason: Hypertensive Emergency Sodium Chloride (Normal Saline 0.9%) 1,000 mls @ 125 mls/hr IV .Q8H [facility] Last Admin: 08/28/19 09:10 Dose: 125 mls/hr Insulin Aspart (Novolog) 1 - 5 unit SUBQ 0800,1200,1700,2100 [facility]; Protocol Last Admin: 08/28/19 11:21 Dose: 1 unit Losartan Potassium (Cozaar) 50 mg PO DAILY [facility] Last Admin: 08/28/19 11:21 Dose: 50 mg Meclizine HCl (Antivert) 25 mg PO TID PRN PRN Reason: Vertigo Metoprolol Tartrate (Lopressor) 100 mg PO BID [facility] Last Admin: 08/28/19 08:08 Dose: 100 mg Ondansetron HCl (Zofran Inj) 4 mg IVP Q6HR PRN PRN Reason: Nausea / Vomiting Pantoprazole Sodium (Protonix) 40 mg PO QDAC [facility] Sodium Chloride (Normal Saline Flush 0.9%) 10 ml IVP PRN PRN PRN Reason: NEEDED PER PROVIDER ORDERS Sodium Chloride (Normal Saline Flush 0.9%) 10 ml IVP 0100,0900,1700 [facility] Last Admin: 08/28/19 01:14 Dose: Not Given Zolpidem Tartrate (Ambien) 5 mg PO QPM PRN PRN Reason: Insomnia Allopurinol [Zyloprim] 300 mg PO DAILY 08/27/19 Amiodarone [Pacerone] 100 mg PO DAILY 08/27/19 Furosemide [Lasix] 40 mg PO DAILY 08/27/19 Glimepiride 2 mg PO DAILY 08/27/19 Metoprolol Tartrate 100 mg PO BID 08/27/19 Omeprazole 20 mg PO DAILY 08/27/19 Warfarin [Coumadin] 5 mg PO TUTHSA 08/27/19 Atorvastatin Calcium 20 mg PO QPM 08/28/19 Meclizine HCl 25 mg PO TID PRN 08/28/19 Telmisartan [Micardis] 40 mg PO DAILY 08/28/19 Warfarin [Coumadin] 2.5 mg PO SUMOWEFR 08/28/19 raNITIdine HCl [Ranitidine HCl] 300 mg PO QPM 08/28/19
[2019-08-28 15:28] LABS: CREATININE 3.2 mg/dL (0.6-1.2)
[2019-08-28 15:33] LABS: CALCIUM 12.2 mg/dL (8.5-10.3)
[2019-08-28] MEDS ORDERED: SODIUM CHLORIDE 0.9% 1,000 ML IV SCH (15:45)
[2019-08-28] MEDS ORDERED: METOPROLOL TARTRATE 100 MG PO SCH (21:00)
[2019-08-28] MEDS: FAMOTIDINE 20 MG TABLET PO SCH (21:13)
[2019-08-28] MEDS: ATORVASTATIN 40 MG TABLET PO SCH (21:17)
[2019-08-29] MEDS: SODIUM CHLORIDE FLUSH 0.9% 10 ML SYRINGE IVP SCH ×3 (01:24→17:03)
[2019-08-29] MEDS: METOPROLOL TARTRATE 50 MG TABLET PO SCH ×3 (01:24→20:00)
[2019-08-29] MEDS: SODIUM CHLORIDE 0.9% 1,000 ML IV SCH (02:11)
--- NOTE | 2019-08-29 02:26 | Ultrasound Report ---
Reason: acute kidney injury Procedure Date: 08/28/2019 Accession Number: [id number] / [id number] Procedure: US - Retroperitoneal CPT Code: Final Report FULL RESULT: EXAM: RENAL ULTRASOUND EXAM DATE: 08/28/2019 11:50 PM. CLINICAL HISTORY: Acute kidney injury. COMPARISON: None. TECHNIQUE: Real-time scanning was performed with static images obtained. FINDINGS: Right Kidney: 11.6 x 5.7 x 4.9 cm. 9 mm cortical cyst. No hydronephrosis. Left Kidney: 11.9 x 5.5 x 5.5 cm. 1.7 cm cortical cyst. No hydronephrosis. Bladder: Bilateral jets seen. The prevoid bladder volume was 418 cc. The postvoid bladder volume was 123 cc. Other: None. IMPRESSION: No hydronephrosis. 123 mL postvoid residual. RADIA
[2019-08-29 05:52] LABS: BASOPHILS % (AUTO) 0.8 %; EOSINOPHILS # (AUTO) 0.3 10^3/uL (0.0-0.7); EOSINOPHILS % (AUTO) 6.1 %; HGB - HEMOGLOBIN 10.9 g/dL (14.0-18.0); LYMPHOCYTES # (AUTO) 1.2 10^3/uL (1.5-3.5); LYMPHOCYTES % (AUTO) 24.2 %; MEAN CORPUSCULAR HEMOGLOBIN 31.5 pg (27.0-31.0); MEAN CORPUSCULAR HGB CONC 31.7 g/dL (32.0-36.0); MEAN CORPUSCULAR VOLUME 99.4 fL (80.0-94.0); MEAN PLATELET VOLUME 10.5 fL (7.4-11.4); MONOCYTES # (AUTO) 0.9 10^3/uL (0.0-1.0); MONOCYTES % (AUTO) 18.3 %; NEUTROPHILS # (AUTO) 2.5 10^3/uL (1.5-6.6); NEUTROPHILS % (AUTO) 50.4 %; PLT - PLATELET COUNT 157 10^3/uL (130-450); RED BLOOD COUNT 3.46 10^6/uL (4.70-6.10); RED CELL DISTRIBUTION WIDTH 14.6 % (12.0-15.0); WHITE BLOOD COUNT 4.9 x10^3/uL (4.8-10.8)
[2019-08-29 06:04] LABS: INR 2.7 (0.8-1.2); PT - PROTHROMBIN TIME 28.6 secs (9.9-12.6)
[2019-08-29 06:08] LABS: ALBUMIN 2.9 g/dL (3.2-5.5); BILIRUBIN,TOTAL 0.9 mg/dL (0.2-1.0); CALCIUM 11.5 mg/dL (8.5-10.3); CREATININE 2.8 mg/dL (0.6-1.2); TOTAL PROTEIN 5.8 g/dL (6.7-8.2); URIC ACID 5.8 mg/dL (2.6-7.2)
[2019-08-29] MEDS: PANTOPRAZOLE 40 MG TABLET PO SCH (06:38)
[2019-08-29] MEDS ORDERED: SODIUM CHLORIDE 0.9% 1,000 ML IV SCH (07:59)
[2019-08-29] MEDS ORDERED: D5.45NS W/20 MEQ KCL 1,000 ML IV SCH ×2 (08:00→08:17)
[2019-08-29] MEDS: INSULIN ASPART 300 UNIT/3 ML PEN SUBQ SCH ×4 (08:12→20:01)
--- NOTE | 2019-08-29 09:01 | XRAY Report ---
Reason: sob Procedure Date: 08/29/2019 Accession Number: [id number] / [id number] Procedure: XR - Chest 1 View X-Ray CPT Code: 83178 Final Report FULL RESULT: EXAM: CHEST RADIOGRAPHY EXAM DATE: 08/29/2019 08:43 AM. CLINICAL HISTORY: Shortness of breath COMPARISON: CHEST 2 VIEW PA/LAT 07/02/2018 10:22 AM. TECHNIQUE: 1 view. FINDINGS: Lungs/Pleura: Pulmonary vascular congestion. Costophrenic angles are mildly blunted, potential trace pleural effusions. Diskoid left midlung opacity. Mediastinum: Atherosclerotic aortic calcification. Other: None. IMPRESSION: 1. Pulmonary vascular congestion. 2. Left mid lung diskoid scarring or atelectasis. RADIA
[2019-08-29] MEDS: AMIODARONE 200 MG TABLET PO SCH (09:32)
[2019-08-29] MEDS: LOSARTAN 50 MG TABLET PO SCH (09:32)
[2019-08-29] MEDS: polyethylene glycoL 3350 17 GM PACKET PO SCH (11:36)
--- NOTE | 2019-08-29 12:18 | PROVIDER PROGRESS NOTE ---
Assessment/Plan - Problem List (1) RENNY (acute kidney injury) Assessment/Plan: 08/29 improved. today creatinine is 2.8. because pt's CXR indicate pulmonary congestion, sat has decreased. will hold IVF now. US of retroperitoneal reveals unremarkable for acute finding. 08/28 improved. today his creatinine is 3.3 from 3.6 on yesterday. 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 (2) Hypercalcemia Conclusion/Plan: 08/29 improved. Ca is 11.5. continue lab monitor 08/28 improved. today his calcium is 13.1 from 14. continue IVF and lab monitor pt's calcium is 14 today, pt denies palpitation, chest pain. EKG reveals NSR. it is likely caused by worsen renal function plan: hydration with NS, lab closely monitor, and with tele and vital monitor (3) pulmonary congestion pt's sat is decreased, lung sound present mild crackles. CXR reveals pulmonary congestion. ECHO is ordered to check the resource of pulmonary congestion. pt also has systolic murmur as well. hold IVF now, if pt clinic improve, then no Lasix for pt supplement of O2 as needed (4) Weakness Conclusion/Plan: 08/28 PT/OT will evaluate and treat pt, will followup pt has CKD stage 4. recently report he has more weakness. pt report worsening weakness consult with PT/OT, fall precaution. (5) Diabetes Conclusion/Plan: 08/29 pt present low level of glucose, hypoglycemia. pt does not have insulin. continue hypoglycemia, ACHS check glucose level encourage pt eat, will advance diet and consider D5 NS for pt if pt continue to have hypoglycemia 08/28 pt's A1C is 6, her glucose level is slight low. pt had no insulin. encourage pt eat enough. and continue ACHS, and hypoglycemia protocol. will followup his glucose level test, it might be low glucose level to cause his weakness. pt might not need his home DM meds, will followup daily pt's glucose is 93, with hx of DM2. plan: check A1C, start slide scale, ACHS, and hypoglycemia protocol (6) HTN (hypertension) Conclusion/Plan: stable, resume home Metoprolol and Micardis vital monitor (7) GERD (gastroesophageal reflux disease) Conclusion/Plan: start with pepcid, resume home Protonix (8) Afib Conclusion/Plan: 08/29 INR is still 2.7, will hold Coumadin today. pt might need be hold Coumadin for a few day then restart it after pt see his PCP to have blood test for INR, discussed the plan with pt and pt's , they understood. 08/28 pt's INR is 2.7 today, will hold Coumadin today pt's Afib is controlled. resume home Metoprolol, check PT/INR then resume Coumadin as well. - Current Meds Current Meds: Current Medications Generic Name Dose Route Start Last Admin Trade Name Freq PRN Reason Stop Dose Admin Amiodarone HCl 100 mg 08/28/19 09:00 08/29/19 09:32 Pacerone PO 100 mg DAILY [facility] Administration Atorvastatin Calcium 20 mg 08/27/19 21:00 08/28/19 21:17 Lipitor PO 20 mg QPM [facility] Administration Famotidine 20 mg 08/27/19 21:00 08/28/19 21:13 Pepcid PO 20 mg QPM [facility] Administration Insulin Aspart 1 - 5 unit 08/28/19 09:00 08/29/19 11:37 Novolog SUBQ 1 unit 0800,1200,1700,2100 [facility] Administration Protocol Losartan Potassium 50 mg 08/28/19 11:00 08/29/19 09:32 Cozaar PO 50 mg DAILY [facility] Administration Metoprolol Tartrate 100 mg 08/27/19 21:00 08/29/19 09:31 Lopressor PO 100 mg BID [facility] Administration Pantoprazole Sodium 40 mg 08/29/19 07:00 08/29/19 06:38 Protonix PO 40 mg QDAC [facility] Administration Polyethylene Glycol 17 gm 08/29/19 12:00 08/29/19 11:36 Miralax PO 17 gm DAILY [facility] Administration Sodium Chloride 10 ml 08/28/19 01:00 08/29/19 01:24 Normal Saline Flush 0.9% IVP Not Given 0100,0900,1700 [facility]END[facility] - Lab Result Fish Bone Diagrams: 08/29/19 05:30 08/29/19 05:30 - Additional Planning My Orders: My Active Orders 08/29/19 05:30 PTH-RELATED PROTEIN (PTH-RP) [REFLAB] DAILYLAB 08/29/19 07:00 Pantoprazole [Protonix] 40 mg PO QDAC 08/29/19 09:19 Out of bed 3+ hours today [RC] TID 08/29/19 09:27 Echo Transthoracic Complete [ECHO] Routine 08/29/19 12:00 polyethylene glycoL 3350 [Miralax] 17 gm PO DAILY 08/30/19 05:00 CALCIUM [CHEM] DAILYLAB CBC - COMP BLD CT W/AUTO DIFF [HEME] DAILYLAB CMP [COMPREHENSIVE METABOLIC PANEL] [CHEM] DAILYLAB PT WITH INR [COAG] DAILYLAB 08/31/19 05:00 CALCIUM [CHEM] DAILYLAB CBC - COMP BLD CT W/AUTO DIFF [HEME] DAILYLAB CMP [COMPREHENSIVE METABOLIC PANEL] [CHEM] DAILYLAB PT WITH INR [COAG] DAILYLAB 09/01/19 05:00 CALCIUM [CHEM] DAILYLAB PT WITH INR [COAG] DAILYLAB 09/02/19 05:00 CALCIUM [CHEM] DAILYLAB Subjective - Subjective Patient Reports: Feeling Better Objective Vital Signs: Vital Signs - 24 hr 08/28/19 08/28/19 08/28/19 16:11 17:08 20:40 Temperature 36.6 C 36.6 C Heart Rate [ 53 L 51 L 53 L Brachial] Respiratory 18 16 Rate Blood Pressure 170/72 H 151/59 H 163/61 H [Right Brachial artery] O2 Saturation 97 96 08/28/19 08/29/19 08/29/19 21:00 00:00 04:42 Temperature 36.5 C 36.4 C L Heart Rate [ 53 L 55 L 57 L Brachial] Respiratory 18 20 Rate Blood Pressure 148/51 H 152/58 H 128/58 L [Right Brachial artery] O2 Saturation 98 94 08/29/19 08/29/19 07:40 11:43 Temperature 36.9 C 36.7 C Heart Rate [ 56 L 55 L Brachial] Respiratory 18 16 Rate Blood Pressure 144/64 H 128/49 L [Right Brachial artery] O2 Saturation 93 93 Oxygen O2 Source Room air I&O (Last 24 Hrs): Intake and Output Totals x24h 08/27/19 08/28/19 08/29/19 23:59 23:59 23:59 Intake Total 1787.5 4422.920 1644.167 Output Total 1700 1350 875 Balance 87.5 3072.920 769.167 General: Alert, Oriented x3, No acute distress HEENT: Atraumatic Neck: Supple Lymphatic: no adenopathy Neuro: Alert, Non Focal, Oriented Times 3 Cardiovascular: Regular rate, Normal S1, Normal S2 Respiratory: Chest non-tender, No respiratory distress, Breath sounds nml Abdomen: Normal bowel sounds, Soft Extremities: No edema, Normal pulses - Results Results: Laboratory Results WBC 4.9 x10^3/uL (4.8-10.8) 08/29/19 05:30 RBC 3.46 10^6/uL (4.70-6.10) L 08/29/19 05:30 Hgb 10.9 g/dL (14.0-18.0) L 08/29/19 05:30 Hct 34.4 % (42.0-52.0) L 08/29/19 05:30 MCV 99.4 fL (80.0-94.0) H 08/29/19 05:30 MCH 31.5 pg (27.0-31.0) H 08/29/19 05:30 MCHC 31.7 g/dL (32.0-36.0) L 08/29/19 05:30 RDW 14.6 % (12.0-15.0) 08/29/19 05:30 Plt Count 157 10^3/uL (130-450) 08/29/19 05:30 MPV 10.5 fL (7.4-11.4) 08/29/19 05:30 Neut # (Auto) 2.5 10^3/uL (1.5-6.6) 08/29/19 05:30 Lymph # (Auto) 1.2 10^3/uL (1.5-3.5) L 08/29/19 05:30 [place] # (Auto) 0.9 10^3/uL (0.0-1.0) 08/29/19 05:30 Eos # (Auto) 0.3 10^3/uL (0.0-0.7) 08/29/19 05:30 Baso # (Auto) 0.0 10^3/uL (0.0-0.1) 08/29/19 05:30 Absolute Nucleated RBC 0.00 x10^3/uL 08/29/19 05:30 Nucleated RBC % 0.0 /100WBC 08/29/19 05:30 PT 28.6 secs (9.9-12.6) H 08/29/19 05:30 INR 2.7 (0.8-1.2) H 08/29/19 05:30 VBG pH 7.378 (7.31-7.41) 08/27/19 14:55 Ionized Calcium 1.72 mmol/L (1.15-1.33) H* 08/27/19 14:55 Sodium 143 mmol/L (135-145) 08/29/19 05:30 Potassium 3.5 mmol/L (3.5-5.0) 08/29/19 05:30 Chloride 109 mmol/L (101-111) 08/29/19 05:30 Carbon Dioxide 28 mmol/L (21-32) 08/29/19 05:30 Anion Gap 6.0 (6-13) 08/29/19 05:30 BUN 30 mg/dL (6-20) H 08/29/19 05:30 Creatinine 2.8 mg/dL (0.6-1.2) H 08/29/19 05:30 Estimated GFR (MDRD) 22 (>89) L 08/29/19 05:30 Glucose 81 mg/dL (70-100) 08/29/19 05:30 POC Whole Bld Glucose 149 mg/dL (70 - 100) H 08/29/19 11:17 Glycated Hemoglobin 6.0 % (4.6-6.2) 08/28/19 05:10 Estim Average Glucose 126 (70-100) H 08/28/19 05:10 Uric Acid 5.8 mg/dL (2.6-7.2) 08/29/19 05:30 Calcium 11.5 mg/dL (8.5-10.3) H 08/29/19 05:30 Total Bilirubin 0.9 mg/dL (0.2-1.0) 08/29/19 05:30 AST 19 IU/L (10-42) 08/29/19 05:30 ALT 25 IU/L (10-60) 08/29/19 05:30 Alkaline Phosphatase 94 IU/L (42-121) 08/29/19 05:30 Total Protein 5.8 g/dL (6.7-8.2) L 08/29/19 05:30 Albumin 2.9 g/dL (3.2-5.5) L 08/29/19 05:30 Globulin 2.9 g/dL (2.1-4.2) 08/29/19 05:30 Albumin/Globulin Ratio 1.0 (1.0-2.2) 08/29/19 05:30 Lipase 194 U/L (22-51) H 08/27/19 14:55 Sepsis Event Note (H) - Evaluation Current Stage of Sepsis: Ruled out ABX Reporting Has patient been on IV antibiotics over the past 48 hours?: No Current Medications - Current Medications Current Medications: Active Medications Amiodarone HCl (Pacerone) 100 mg PO DAILY [facility] Last Admin: 08/29/19 09:32 Dose: 100 mg Atorvastatin Calcium (Lipitor) 20 mg PO QPM [facility] Last Admin: 08/28/19 21:17 Dose: 20 mg Famotidine (Pepcid) 20 mg PO QPM [facility] Last Admin: 08/28/19 21:13 Dose: 20 mg Hydralazine HCl (Apresoline Inj) 10 mg IVP QID PRN PRN Reason: Hypertensive Emergency Insulin Aspart (Novolog) 1 - 5 unit SUBQ 0800,1200,1700,2100 [facility]; Protocol Last Admin: 08/29/19 11:37 Dose: 1 unit Losartan Potassium (Cozaar) 50 mg PO DAILY [facility] Last Admin: 08/29/19 09:32 Dose: 50 mg Meclizine HCl (Antivert) 25 mg PO TID PRN PRN Reason: Vertigo Metoprolol Tartrate (Lopressor) 100 mg PO BID [facility] Last Admin: 08/29/19 09:31 Dose: 100 mg Ondansetron HCl (Zofran Inj) 4 mg IVP Q6HR PRN PRN Reason: Nausea / Vomiting Pantoprazole Sodium (Protonix) 40 mg PO QDAC [facility] Last Admin: 08/29/19 06:38 Dose: 40 mg Polyethylene Glycol (Miralax) 17 gm PO DAILY [facility] Last Admin: 08/29/19 11:36 Dose: 17 gm Sodium Chloride (Normal Saline Flush 0.9%) 10 ml IVP PRN PRN PRN Reason: NEEDED PER PROVIDER ORDERS Sodium Chloride (Normal Saline Flush 0.9%) 10 ml IVP 0100,0900,1700 [facility] Last Admin: 08/29/19 01:24 Dose: Not Given Zolpidem Tartrate (Ambien) 5 mg PO QPM PRN PRN Reason: Insomnia Allopurinol [Zyloprim] 300 mg PO DAILY 08/27/19 Amiodarone [Pacerone] 100 mg PO DAILY 08/27/19 Furosemide [Lasix] 40 mg PO DAILY 08/27/19 Glimepiride 2 mg PO DAILY 08/27/19 Metoprolol Tartrate 100 mg PO BID 08/27/19 Omeprazole 20 mg PO DAILY 08/27/19 Warfarin [Coumadin] 5 mg PO TUTHSA 08/27/19 Atorvastatin Calcium 20 mg PO QPM 08/28/19 Meclizine HCl 25 mg PO TID PRN 08/28/19 Telmisartan [Micardis] 40 mg PO DAILY 08/28/19 Warfarin [Coumadin] 2.5 mg PO SUMOWEFR 08/28/19 raNITIdine HCl [Ranitidine HCl] 300 mg PO QPM 08/28/19
[2019-08-29 16:55] LABS: CALCIUM 11.9 mg/dL (8.5-10.3); CREATININE 2.9 mg/dL (0.6-1.2)
[2019-08-29] MEDS ORDERED: DEXTROSE 5%-0.45% NACL 1,000 ML IV SCH (19:00)
[2019-08-29] MEDS: DEXTROSE 5%-0.45% NACL 1,000 ML IV SCH (19:21)
[2019-08-29] MEDS: ATORVASTATIN 40 MG TABLET PO SCH (20:00)
[2019-08-29] MEDS: FAMOTIDINE 20 MG TABLET PO SCH (20:00)
[2019-08-29 23:50] LABS: CALCIUM 11.2 mg/dL (8.5-10.3); CREATININE 2.8 mg/dL (0.6-1.2)
[2019-08-30] MEDS: SODIUM CHLORIDE FLUSH 0.9% 10 ML SYRINGE IVP SCH ×2 (00:27→09:56)
[2019-08-30] MEDS: DEXTROSE 5%-0.45% NACL 1,000 ML IV SCH (03:29)
[2019-08-30 05:12] LABS: BASOPHILS % (AUTO) 0.7 %; EOSINOPHILS # (AUTO) 0.3 10^3/uL (0.0-0.7); HGB - HEMOGLOBIN 11.5 g/dL (14.0-18.0); LYMPHOCYTES # (AUTO) 1.5 10^3/uL (1.5-3.5); LYMPHOCYTES % (AUTO) 25.2 %; MEAN CORPUSCULAR HEMOGLOBIN 31.8 pg (27.0-31.0); MEAN CORPUSCULAR VOLUME 99.2 fL (80.0-94.0); MEAN PLATELET VOLUME 10.6 fL (7.4-11.4); MONOCYTES # (AUTO) 1.1 10^3/uL (0.0-1.0); MONOCYTES % (AUTO) 19.3 %; NEUTROPHILS # (AUTO) 2.9 10^3/uL (1.5-6.6); NEUTROPHILS % (AUTO) 49.5 %; PLT - PLATELET COUNT 168 10^3/uL (130-450); RED BLOOD COUNT 3.62 10^6/uL (4.70-6.10); RED CELL DISTRIBUTION WIDTH 14.4 % (12.0-15.0); WHITE BLOOD COUNT 5.8 x10^3/uL (4.8-10.8)
[2019-08-30 05:16] LABS: INR 2.2 (0.8-1.2); PT - PROTHROMBIN TIME 24.2 secs (9.9-12.6)
[2019-08-30 05:33] LABS: ALBUMIN/GLOBULIN RATIO 0.9 (1.0-2.2); BILIRUBIN,TOTAL 0.9 mg/dL (0.2-1.0); CALCIUM 11.6 mg/dL (8.5-10.3); CREATININE 2.7 mg/dL (0.6-1.2); TOTAL PROTEIN 6.2 g/dL (6.7-8.2)
[2019-08-30] MEDS: PANTOPRAZOLE 40 MG TABLET PO SCH (06:13)
[2019-08-30] MEDS: polyethylene glycoL 3350 17 GM PACKET PO SCH (08:44)
[2019-08-30] MEDS: LOSARTAN 50 MG TABLET PO SCH (08:47)
[2019-08-30] MEDS: INSULIN ASPART 300 UNIT/3 ML PEN SUBQ SCH ×2 (08:49→11:41)
[2019-08-30] MEDS: METOPROLOL TARTRATE 50 MG TABLET PO SCH (08:50)
[2019-08-30] MEDS: AMIODARONE 200 MG TABLET PO SCH (08:50)
--- NOTE | 2019-08-30 11:05 | Discharge Plan ---
Discharge Plan Problem Reviewed?: Yes Disposition: Home, Self Care Condition: Stable Diet: Low Sodium Activity Restrictions: Activity as Tolerated Shower Restrictions: No (fall precaution) Instruction Topics: Injury Acute Kidney Dc, Hypercalcemia Dc, Hypercalcemia Dc Ch, Hypoglycemia Health Concerns: acute kidney injury, hypercalcemia Plan of Treatment: After treatment in hospital, your kidney function test and hypercalcemia show significant improvement. Advise you followup your PCP, and your automobile radiator mechanic very closely to continue the management. Care Goals: stabilization and improvement of your medical conditions Assessment: Discussed with you and your for the care plan. Your A1C is 6.0, discussed with you and your how to prevent of hypoglycemia and hyperglycemia. you and your understood. Additional Instructions or Follow Up instructions: you may followup your PCP in one week, and have PT/INR to manage your Coumadin usage, and have BMP and calcium level test to monitor your kidney function status, and followup your automobile radiator mechanic in one week. Should your symptoms return or worsen, you may present ER or call 911 for help. No Smoking: If you smoke, Please STOP! Call for help. Follow-up with: Brennen Rodriguez MD [Primary Care Provider] -
[2019-08-30 11:34] VITALS: BP 150/60
--- NOTE | 2019-08-30 11:35 | DISCHARGE SUMMARY ---
Discharge Summary Admit Date: 08/27/19 Discharge Date: 08/30/19 Discharging Provider: Myke Garcia Primary Care Provider: Condition at Discharge: Stable Discharge Disposition: Home, Self Care Discharge Facility Name: home - DIAGNOSES Admission Diagnoses: (1) RENNY (acute kidney injury) (2) Hypercalcemia (3) Weakness (4) Diabetes (5) HTN (hypertension) (6) GERD (gastroesophageal reflux disease) (7) Afib Discharge Diagnoses with Status of Each Condition: (1) RENNY (acute kidney injury) stable. pt has 2.6 creatinine today which he had 3.6 at the admission. pt's creatinine was 2.7 at 2019. Followup his millinery copyist (2) Hypercalcemia stable. Calcium is 11.6 today. pt had 14 at the admission. pt had 12.6 calcium at 2019. Followup his millinery copyist (3) pulmonary congestion stable/resolved. pt has no respiratory distress at the d/c. pt had 94% sats on room air. pt's ECHO is unremarkable. pt's and pt report pt take his lasix for many years for pt's lower extremity edema and for fluid-overloaded, and like to keep the meds. (4) Weakness stable as his baseline. pt walked with PT/OT in room and hallway without respiratory distress, PT/OT discharged pt. (5) Diabetes stable. discussed with pt and pt's for prevention of hypoglycemia and hyperglycemia. pt and pt's understood. (6) HTN (hypertension) stable (7) GERD (gastroesophageal reflux disease) stable (8) Afib stable (9)CKD improved. - HPI History of Present Illness: is a 84-yrs-old male with a PMH significant for CKD stage 4, DM2, afib with Coumadin, HTN, Gout, HLD, GERD, who present ER for complain of worsening renal function and elevated calcium serum level. Pt report he being treated by Nephrology Dr. Maciel in [place] for decreased kidney function, and he was call ed to come in hospital to correct a calcium build up. pt report he was found to have decreased renal function and elevated calcium for over months, he state his millinery copyist and PCP Dr. Rodriguez did not find the reason why his renal function , and Dr. Rodriguez refer pt to see dye line operator, and pt had appointment to see dye line operator. Pt also complain of general weakness and lack of energy, unsteady walk as his chronic condition. He also states he is "sleeping all the time". pt denies chest pain, fever, chill, shortness of breath, headache, vision change. Route lab test reveals creatinine is 3.6 and calcium is 14. pt is admitted for above medical reason. - HOSPITAL COURSE Hospital Course: pt was admitted for acute on chronic kidney injury and hypercalcemia. It is likely from pt's dehydration. pt was treated with hydration, and lab monitor. after treatment, pt has 2.6 creatinine today which he had 3.6 at the admission and Calcium is 11.6 today. pt had 14 at the admission. US of abdomen reveal no hydronephrosis. The detail hospital course is as the below (1) RENNY (acute kidney injury) stable. pt has 2.6 creatinine today which he had 3.6 at the admission. pt's creatinine was 2.7 at 2019. Followup his millinery copyist (2) Hypercalcemia stable. Calcium is 11.6 today. pt had 14 at the admission. pt had 12.6 calcium at 2019. Followup his millinery copyist (3) pulmonary congestion stable/resolved. pt has no respiratory distress at the d/c. pt had 94% sats on room air. pt's ECHO is unremarkable. pt's and pt report pt take his lasix for many years for pt's lower extremity edema and for fluid-overloaded, and like to keep the meds. (4) Weakness stable as his baseline. pt walked with PT/OT in room and hallway without respiratory distress, PT/OT discharged pt. (5) Diabetes stable. discussed with pt and pt's for prevention of hypoglycemia and hyperglycemia. pt and pt's understood. (6) HTN (hypertension) stable (7) GERD (gastroesophageal reflux disease) stable (8) Afib stable (9)CKD improved. - ALLERGIES Allergies/Adverse Reactions: Allergies Allergy/AdvReac Type Severity Reaction Status Date / Time celecoxib [From Celebrex] Allergy Unknown Verified 08/27/19 13:26 cephalexin [From Keflex] Allergy Nausea Verified 08/27/19 13:26 codeine Allergy Itching Verified 08/27/19 13:26 hydrocodone [From Vicodin] Allergy Itching Verified 08/27/19 13:26 indomethacin Allergy Unknown Verified 08/27/19 13:26 NSAIDS (Non-Steroidal Allergy Unknown Verified 08/27/19 13:26 Anti-Inflamma rofecoxib [From Vioxx] Allergy Unknown Verified 08/27/19 13:26 sildenafil [From Viagra] Allergy Diaphoresis Verified 08/27/19 13:26 - MEDICATIONS Home Medications: Ambulatory Orders Medication Instructions Recorded Confirmed Allopurinol [Zyloprim] 300 mg PO DAILY 08/27/19 08/28/19 Amiodarone [Pacerone] 100 mg PO DAILY 08/27/19 08/27/19 Furosemide [Lasix] 40 mg PO DAILY 08/27/19 08/28/19 Glimepiride 2 mg PO DAILY 08/27/19 08/28/19 Metoprolol Tartrate 100 mg PO BID 08/27/19 08/28/19 Omeprazole 20 mg PO DAILY 08/27/19 08/28/19 Warfarin [Coumadin] 5 mg PO TUTHSA 08/27/19 08/28/19 Atorvastatin Calcium 20 mg PO QPM 08/28/19 08/28/19 Meclizine HCl 25 mg PO TID PRN 08/28/19 08/28/19 Telmisartan [Micardis] 40 mg PO DAILY 08/28/19 08/28/19 Warfarin [Coumadin] 2.5 mg PO SUMOWEFR 08/28/19 08/28/19 raNITIdine HCl [Ranitidine HCl] 300 mg PO QPM 08/28/19 08/28/19 - PHYSICAL EXAM AT DISCHARGE General Appearance: positive: No acute distress, Alert. negative: Lethargic Eyes Bilateral: positive: Normal inspection, PERRL, EOMI, No lid inflammation ENT: positive: ENT inspection nml, Pharynx nml, No signs of dehydration. negative: Purulent nasal drainage Neck: positive: Nml inspection, Thyroid nml, No JVD, Trachea midline. negative: Thyromegaly, Lymphadenopathy (R), Lymphadenopathy (L), Stiff neck, Tracheal deviation Respiratory: positive: Chest non-tender, No respiratory distress. negative: Wheezes, Rales, Rhonchi Cardiovascular: positive: Regular rate & rhythm, No murmur, No gallop, Bradycardia. negative: Irregularly irregular, Extrasystoles, Tachycardia, JVD present, Systolic murmur, Diastolic murmur Peripheral Pulses: positive: 2+ Abdomen: positive: Non-tender, No organomegaly, Nml bowel sounds, No distention. negative: Tenderness, Guarding, Rebound Back: positive: Nml inspection. negative: CVA tenderness (R), CVA tenderness (L) Skin: positive: Color nml, No rash, Warm, Dry. negative: Cyanosis, Diaphoresis, Pallor Extremities: positive: Non-tender, Full ROM, Nml appearance. negative: Calf tenderness, Caterina's sign/cords Neurologic/Psychiatric: positive: Oriented x3, Motor nml, Sensation nml. negative: Weakness, Sensory loss, Facial droop, Slurred/abnml speech, Depressed mood/affect - LABS Result Diagrams: 08/30/19 04:30 08/30/19 04:30 - SEPSIS Current Stage of Sepsis: Ruled out - FOLLOW UP Follow Up: After treatment in hospital, your kidney function test and hypercalcemia show significant improvement. Advise you followup your PCP, and your millinery copyist very closely to continue the management. you may start your home meds Coumadin on tomorrow, continue your other home meds as the schedule. you may followup your PCP in one week, and have PT/INR to manage your Coumadin usage, and have BMP and calcium level test to monitor your kidney function status when you visit your PCP. you may followup your millinery copyist in one week. Should your symptoms return or worsen, you may present ER or call 911 for help. - TIME SPENT Time Spent in Discharge (Minutes): 40
== END 2019-08-30 12:45 | disposition home or self-care (01) | DRG 684 ==
LOC: ED 13:08 → MS2 16:45
PROVIDERS: ADMIT Nurse Practitioner Gerontology; ATTEND Nurse Practitioner Gerontology
DX: N17.9 Acute kidney failure, unspecified (principal); E83.52 Hypercalcemia; I10 Essential (primary) hypertension; E11.42 Type 2 diabetes mellitus with diabetic polyneuropathy; E86.0 Dehydration; R09.89 Other specified symptoms and signs involving the circulatory and respiratory systems; R01.1 Cardiac murmur, unspecified; E11.649 Type 2 diabetes mellitus with hypoglycemia without coma; I48.91 Unspecified atrial fibrillation; I12.9 Hypertensive chronic kidney disease with stage 1 through stage 4 chronic kidney disease, or unspecified chronic kidney disease; N18.4 Chronic kidney disease, stage 4 (severe); E11.22 Type 2 diabetes mellitus with diabetic chronic kidney disease; M10.9 Gout, unspecified; E78.5 Hyperlipidemia, unspecified; K21.9 Gastro-esophageal reflux disease without esophagitis; R60.0 Localized edema; Z79.899 Other long term (current) drug therapy; Z79.84 Long term (current) use of oral hypoglycemic drugs; Z79.01 Long term (current) use of anticoagulants; Z86.14 Personal history of Methicillin resistant Staphylococcus aureus infection
CPT/HCPCS: 36415; 71045; 76770; 80048; 80053; 82310; 82330; 83036; 83690; 83970; 84550; 85025; 85610; 93005; 93306; 96361; 96374; 97116; 97161; 99284; 99285; A9270; 83519

== ENCOUNTER 2019-09-01 12:41 | Emergency (ER) | payer MEDICARE, BC ==
--- NOTE | 2019-09-01 12:55 | ED Physician Documentation ---
History of Present Illness - Stated complaint Stated Complaint: FEVER, CHILLS, WHEEZING, COUGHING - Chief complaint Chief Complaint: Resp - History obtained from History obtained from: Patient, Family - Additonal information Additional information: This is an 84-year-old man who presents with his with concerns that he has pneumonia. He was admitted to the hospital just released 2 days ago because of worsening renal failure with high calcium levels that required IV fluids. They had to stop the IV fluids because it was starting to develop some pulmonary symptoms. Since the got him home he has not been doing well with progressive wheezing, coughing, O2 saturations down to 89%, fever of 101 degrees and chills. He feels very short of breath. Denies chest pain or dizziness. He is a diabetic his blood sugar was only 65 this morning. He does have a slight headache and his says he has had a lot of nasal congestion with clear mucus. She did not give him anything for the fever today. He has kidney failure due to diabetes and use of a nonsteroidal drug in the past but he is not been on dialysis. He denies any dysuria, abdominal pain, nausea vomiting or diarrhea. Review of Systems Constitutional: reports: Fever, Chills Ears: denies: Ear pain Nose: reports: Rhinorrhea / runny nose Throat: denies: Sore throat Cardiac: denies: Chest pain / pressure, Palpitations Respiratory: reports: Dyspnea, Cough, Wheezing GI: denies: Abdominal Pain, Nausea, Vomiting, Diarrhea : denies: Dysuria Skin: denies: Rash Neurologic: reports: Generalized weakness, Headache. denies: Syncope PD PAST MEDICAL HISTORY - Past Medical History Cardiovascular: Hypertension, High cholesterol, Atrial fibrillation Respiratory: None Neuro: Peripheral neuropathy Endocrine/Autoimmune: Type 2 diabetes GI: GERD : Renal insuffiency HEENT: None Psych: None Musculoskeletal: Rheumatoid arthritis, Gout Derm: None - Past Surgical History Past Surgical History: Yes General: Cholecystectomy Ortho: Arthroscopic surgery HEENT: Tonsil/Adenoidectomy Derm: Skin cancer surgery - Present Medications Home Medications: Ambulatory Orders Medication Instructions Recorded Confirmed Allopurinol [Zyloprim] 300 mg PO DAILY 08/27/19 08/28/19 Amiodarone [Pacerone] 100 mg PO DAILY 08/27/19 08/27/19 Furosemide [Lasix] 40 mg PO DAILY 08/27/19 08/28/19 Glimepiride 2 mg PO DAILY 08/27/19 08/28/19 Metoprolol Tartrate 100 mg PO BID 08/27/19 08/28/19 Omeprazole 20 mg PO DAILY 08/27/19 08/28/19 Warfarin [Coumadin] 5 mg PO TUTHSA 08/27/19 08/28/19 Atorvastatin Calcium 20 mg PO QPM 08/28/19 08/28/19 Meclizine HCl 25 mg PO TID PRN 08/28/19 08/28/19 Telmisartan [Micardis] 40 mg PO DAILY 08/28/19 08/28/19 Warfarin [Coumadin] 2.5 mg PO SUMOWEFR 08/28/19 08/28/19 raNITIdine HCl [Ranitidine HCl] 300 mg PO QPM 08/28/19 08/28/19 - Allergies Allergies/Adverse Reactions: Allergies Allergy/AdvReac Type Severity Reaction Status Date / Time celecoxib [From Celebrex] Allergy Unknown Verified 09/01/19 12:48 cephalexin [From Keflex] Allergy Nausea Verified 09/01/19 12:48 codeine Allergy Itching Verified 09/01/19 12:48 hydrocodone [From Vicodin] Allergy Itching Verified 09/01/19 12:48 indomethacin Allergy Unknown Verified 09/01/19 12:48 NSAIDS (Non-Steroidal Allergy Unknown Verified 09/01/19 12:48 Anti-Inflamma rofecoxib [From Vioxx] Allergy Unknown Verified 09/01/19 12:48 sildenafil [From Viagra] Allergy Diaphoresis Verified 09/01/19 12:48 - Social History Does the pt smoke?: No Smoking Status: Never smoker Does the pt drink ETOH?: No Does the pt have substance abuse?: No - Immunizations Immunizations are current?: Yes - POLST Patient has POLST: No PD ED PE NORMAL - Vitals Vital signs reviewed: Yes - General General: Alert 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, No acute distress, Well developed/nourished, Other (Patient looks like he does not feel well and is very slow to answer questions.) - HEENT HEENT: Atraumatic, PERRL, Other (No scleral icterus. Mucous membranes are dry.) - Neck Neck: No adenopathy - Cardiac Cardiac: RRR, Strong equal pulses. No: No murmur (There is a 3/6 systolic murmur heard at the apex and left upper sternal border.) - Respiratory Respiratory: No respiratory distress. No: Clear bilaterally (Diminished breath sounds at the bases.) - Abdomen Abdomen: Normal bowel sounds, Soft, Non tender - Derm Derm: Normal color, Warm and dry, No rash - Neuro Neuro: Alert 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, pelletizer operator 2-12 intact, No motor deficit, No sensory deficit, Normal speech - Psych Psych: Normal mood, Normal affect Results - Vitals Vitals: Vital Signs - 24 hr 09/01/19 09/01/19 09/01/19 12:48 13:34 14:17 Temperature 38.9 C H 38.8 C H 38.3 C H Heart Rate 61 58 L 54 L Respiratory 18 22 18 Rate Blood Pressure 130/61 137/63 H 133/57 H O2 Saturation 88 L 94 93 09/01/19 09/01/19 09/01/19 15:03 15:57 16:49 Temperature 38.0 C H 37.1 C Heart Rate 54 L 60 53 L Respiratory 21 20 16 Rate Blood Pressure 128/56 L 147/63 H 146/69 H O2 Saturation 96 98 94 09/01/19 09/01/19 18:40 19:59 Temperature 36.5 C Heart Rate 57 L 53 L Respiratory 20 18 Rate Blood Pressure 160/64 H 172/77 H O2 Saturation 96 98 Oxygen O2 Source Nasal cannula Oxygen Flow Rate 2 - Labs Labs: Laboratory Tests 09/01/19 09/01/19 09/01/19 13:10 13:15 13:20 WBC 8.0 RBC 3.56 L Hgb 11.3 L Hct 35.0 L MCV 98.3 H MCH 31.7 H MCHC 32.3 RDW 14.5 Plt Count 168 MPV 10.7 Neut # (Auto) 5.7 Lymph # (Auto) 1.0 L [place] # (Auto) 1.1 H Eos # (Auto) 0.1 Baso # (Auto) 0.1 Absolute Nucleated RBC 0.00 Nucleated RBC % 0.0 PT INR VBG pH Ionized Calcium Sodium Potassium Chloride Carbon Dioxide Anion Gap BUN Creatinine Estimated GFR (MDRD) Glucose Lactic Acid Calcium Total Bilirubin AST ALT Alkaline Phosphatase Total Protein Albumin Globulin Albumin/Globulin Ratio Lipase Urine Color YELLOW Urine Clarity CLEAR Urine pH 6.0 Ur Specific [place] 1.020 Urine Protein 30 H Urine Glucose (UA) NEGATIVE Urine Ketones NEGATIVE Urine Occult Blood SMALL H Urine Nitrite NEGATIVE Urine Bilirubin NEGATIVE Urine Urobilinogen 0.2 (NORMAL) Ur Leukocyte Esterase NEGATIVE Urine RBC None Seen Urine WBC 0-3 Ur Squamous Epith Cells NONE SEEN Urine Bacteria None Seen Ur Microscopic Review INDICATED Urine Culture Comments NOT INDICATED Influenza A (Rapid) Negative Influenza B (Rapid) Negative 09/01/19 09/01/19 09/01/19 13:20 13:20 13:20 WBC RBC Hgb Hct MCV MCH MCHC RDW Plt Count MPV Neut # (Auto) Lymph # (Auto) [place] # (Auto) Eos # (Auto) Baso # (Auto) Absolute Nucleated RBC Nucleated RBC % PT 15.7 H INR 1.4 H VBG pH Ionized Calcium Sodium 137 Potassium 3.7 Chloride 104 Carbon Dioxide 26 Anion Gap 7.0 BUN 37 H Creatinine 3.1 H Estimated GFR (MDRD) 19 L Glucose 94 Lactic Acid 1.9 Calcium 11.1 H Total Bilirubin 1.6 H AST 38 ALT 31 Alkaline Phosphatase 92 Total Protein 6.8 Albumin 3.2 Globulin 3.6 Albumin/Globulin Ratio 0.9 L Lipase 40 Urine Color Urine Clarity Urine pH Ur Specific [place] Urine Protein Urine Glucose (UA) Urine Ketones Urine Occult Blood Urine Nitrite Urine Bilirubin Urine Urobilinogen Ur Leukocyte Esterase Urine RBC Urine WBC Ur Squamous Epith Cells Urine Bacteria Ur Microscopic Review Urine Culture Comments Influenza A (Rapid) Influenza B (Rapid) 09/01/19 14:28 WBC RBC Hgb Hct MCV MCH MCHC RDW Plt Count MPV Neut # (Auto) Lymph # (Auto) [place] # (Auto) Eos # (Auto) Baso # (Auto) Absolute Nucleated RBC Nucleated RBC % PT INR VBG pH 7.448 H Ionized Calcium 1.41 H Sodium Potassium Chloride Carbon Dioxide Anion Gap BUN Creatinine Estimated GFR (MDRD) Glucose Lactic Acid Calcium Total Bilirubin AST ALT Alkaline Phosphatase Total Protein Albumin Globulin Albumin/Globulin Ratio Lipase Urine Color Urine Clarity Urine pH Ur Specific [place] Urine Protein Urine Glucose (UA) Urine Ketones Urine Occult Blood Urine Nitrite Urine Bilirubin Urine Urobilinogen Ur Leukocyte Esterase Urine RBC Urine WBC Ur Squamous Epith Cells Urine Bacteria Ur Microscopic Review Urine Culture Comments Influenza A (Rapid) Influenza B (Rapid) - Rads (name of study) cxr Radiology: EMP read contemporaneously, See rad report (neg acute infiltrate) ct chest Radiology: See rad report (Patchy interstitial infiltrates some areas consistent with pneumonia) PD MEDICAL DECISION MAKING - ED course Complexity details: reviewed results, re-evaluated patient, d/w patient, d/w family ED course: Patient is bradycardic which I suspect is due to the beta-blockers. He has a fever over 38 C which did not respond tremendously to Tylenol but I am hesitant to use any anti-inflammatories because of his renal failure. Potassium is normal. His ionized calcium was only 1.41. Chest x-ray did not show a definite infiltrate the rating this more as a fluid overload. He is hypoxic and satting only 93% on 2 L. He was given a 500 cc bolus of saline. White blood cell count was normal. I have elected to CT his chest without contrast after discussing with the family to see if the interstitial pattern can be better delineated on a CT chest scan then chest x-ray. 1710: The CT scan did show some interstitial disease that could be consistent with pneumonia and given his fever he was treated with Levaquin. He has a Keflex allergy that induce rash. He will be hard to manage with fluids because of his renal failure. His lactic is normal. Discussed with the hospitalist and she is agreed except the patient for admission because of his recent hospitalization she asked that I add Vanco to his antibiotic regimen. Will discuss with the and patient regarding admission. 1810: Case was discussed with the hospitalist and she agreed excepting for admission here but she was going to come down and evaluate and determine whether he should go in the intensive care unit or into a regular hospital bed. After she had discussion with the family and reviewed his chart there are concerns that perhaps he should be transferred to a higher level facility that has specialist of pulmonology, cardiology and nephrology. 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 Departure - Departure Disposition: 02 Transfer Acute Care Hosp Clinical Impression: Hypercalcemia, RENNY (acute kidney injury) Pneumonia Qualifiers: Pneumonia type: due to unspecified organism Laterality: bilateral Lung location: unspecified part of lung Qualified Code(s): J18.9 - Pneumonia, unspecified organism Condition: Fair Discharge Date/Time: 09/01/19 20:04
[2019-09-01] MEDS ORDERED: ACETAMINOPHEN 325 MG TABLET PO STA (13:06)
[2019-09-01 13:22] LABS: BILIRUBIN,URINE NEGATIVE (NEGATIVE); GLUCOSE, URINE (UA) NEGATIVE (NEGATIVE); KETONES,URINE (UA) NEGATIVE (NEGATIVE); LEUKOCYTE ESTERASE, URINE NEGATIVE (NEGATIVE); NITRITE,URINE NEGATIVE (NEGATIVE); OCCULT BLOOD,URINE SMALL (NEGATIVE); PROTEIN,URINE 30 mg/dL (NEGATIVE); UROBILINOGEN,URINE 0.2 (NORMAL) E.U./dL (NORMAL)
[2019-09-01 13:24] LABS: CLARITY,URINE CLEAR (CLEAR)
[2019-09-01 13:40] LABS: BASOPHILS # (AUTO) 0.1 10^3/uL (0.0-0.1); BASOPHILS % (AUTO) 0.6 %; EOSINOPHILS # (AUTO) 0.1 10^3/uL (0.0-0.7); EOSINOPHILS % (AUTO) 1.4 %; HGB - HEMOGLOBIN 11.3 g/dL (14.0-18.0); LYMPHOCYTES % (AUTO) 12.1 %; MEAN CORPUSCULAR HEMOGLOBIN 31.7 pg (27.0-31.0); MEAN CORPUSCULAR HGB CONC 32.3 g/dL (32.0-36.0); MEAN CORPUSCULAR VOLUME 98.3 fL (80.0-94.0); MEAN PLATELET VOLUME 10.7 fL (7.4-11.4); MONOCYTES # (AUTO) 1.1 10^3/uL (0.0-1.0); MONOCYTES % (AUTO) 14.2 %; NEUTROPHILS # (AUTO) 5.7 10^3/uL (1.5-6.6); NEUTROPHILS % (AUTO) 71.5 %; PLT - PLATELET COUNT 168 10^3/uL (130-450); RED BLOOD COUNT 3.56 10^6/uL (4.70-6.10); RED CELL DISTRIBUTION WIDTH 14.5 % (12.0-15.0)
[2019-09-01 13:43] LABS: BACTERIA,URINE None Seen /HPF (None Seen); RBC,URINE None Seen /HPF (0-5); SQUAMOUS EPITHELIAL CELL,UR NONE SEEN (<= Few)
[2019-09-01] MEDS ORDERED: SODIUM CHLORIDE 0.9% 500 ML IV ONE (13:48)
[2019-09-01 13:49] LABS: ALBUMIN 3.2 g/dL (3.2-5.5); ALBUMIN/GLOBULIN RATIO 0.9 (1.0-2.2); BILIRUBIN,TOTAL 1.6 mg/dL (0.2-1.0); CALCIUM 11.1 mg/dL (8.5-10.3); CREATININE 3.1 mg/dL (0.6-1.2); TOTAL PROTEIN 6.8 g/dL (6.7-8.2)
--- NOTE | 2019-09-01 13:53 | XRAY Report ---
Reason: chest pain Procedure Date: 09/01/2019 Accession Number: [id number] / [id number] Procedure: XR - Chest 1 View X-Ray CPT Code: 34101 Final Report FULL RESULT: EXAM: CHEST RADIOGRAPHY EXAM DATE: 09/01/2019 01:41 PM. CLINICAL HISTORY: Chest Pain. COMPARISON: CHEST 1 VIEW 08/29/2019 8:25 AM. TECHNIQUE: 1 view. FINDINGS: Lungs/Pleura: Minor left midlung scarring/atelectasis is unchanged. No new airspace opacity is identified. No effusion or pneumothorax. Mediastinum: Mild pulmonary vascular congestion and edema is seen. Cardiac silhouette is mildly enlarged. Other: None. IMPRESSION: Mild CHF/fluid overload. Her left midlung scarring/atelectasis again seen. RADIA
[2019-09-01 14:41] LABS: VBG PH 7.448 (7.31-7.41)
[2019-09-01 15:46] LABS: INR 1.4 (0.8-1.2); PT - PROTHROMBIN TIME 15.7 secs (9.9-12.6)
[2019-09-01] MEDS ORDERED: levoFLOXacin 750 MG/150 ML 750 MG/150 ML BAG IV ONE (15:57)
--- NOTE | 2019-09-01 16:34 | CT Report ---
Reason: hypoxia Procedure Date: 09/01/2019 Accession Number: [id number] / [id number] Procedure: CT - CHEST WO CPT Code: Final Report FULL RESULT: EXAM: CT CHEST EXAM DATE: 09/01/2019 03:56 PM. CLINICAL HISTORY: Hypoxia, cough and weakness. COMPARISONS: CHEST 1 VIEW 09/01/2019 1:18 PM. TECHNIQUE: Routine helical CT imaging was performed through the chest. IV contrast: None. Reconstructions: Coronal and sagittal. In accordance with CT protocol optimization, one or more of the following dose reduction techniques were utilized for this exam: automated exposure control, adjustment of mA and/or KV based on patient size, or use of iterative reconstructive technique. FINDINGS: Imaged neck: Unremarkable Central airways: Unremarkable Lung parenchyma: Interlobular septal thickening most pronounced in the right lung with relative sparing of the left lung may represent interstitial pulmonary edema. There are several peripheral foci of groundglass opacity/groundglass nodularity within the right middle lobe and left lingula. Scattered foci of scarring bilaterally. Pleural effusion: Small/moderate bilateral pleural effusions. Pneumothorax: None Heart: Normal in size with coronary artery disease and mitral annular calcifications. No pericardial effusion. Aorta: No aneurysm, however, the merlene ascending thoracic aorta is top normal in caliber measuring 3.9 cm in diameter. Mild atherosclerosis. Pulmonary arteries: Enlarged main pulmonary artery. Adenopathy: None Imaged abdomen: Cholecystectomy. Trace ascites. Right adrenal myelolipoma. Colonic diverticulosis. No diverticulitis. Sidewalls: Unremarkable Bones: No suspicious osseous lesions. Bridging osteophytes throughout the thoracic spine suggest DISH. IMPRESSION: 1. There are several peripheral foci of groundglass opacity/groundglass nodularity within the right middle lobe and left lingula. Correlate clinically for infectious or inflammatory process. Atypical infection excluded. 2. Interlobular septal thickening most pronounced in the right lung with relative sparing of the left lung findings suggest represent interstitial pulmonary edema. 3. Small/moderate bilateral pleural effusions with bilateral lower lobe subsegmental atelectasis. 4. Enlargement of the main pulmonary artery which is nonspecific but can be seen in pulmonary hypertension. 5. The ascending thoracic aorta is top normal in caliber. RADIA
[2019-09-01] MEDS ORDERED: VANCOMYCIN INJ 1 GM in SODIUM CHLORIDE 0.9% 500 ML IV STA (17:17)
--- NOTE | 2019-09-01 18:44 | ED Physician Documentation ---
ED Addendum - Addendum Addendum: 09/01/19 18:43 84-year-old gentleman with multiple comorbidities signed out to me by Dr. Lozano at [facility]. Briefly he was febrile today with a recent admit for acute renal failure and hypercalcemia. His creatinine went back up since admission and he was febrile to [address] showing concern for right middle lobe and left lingular early pneumonia. He had been cultured up and given levofloxacin and vancomycin. He had been seen by the hospitalist here, Dr. Kemp who felt he should be transferred to a higher level of care for potential cardiology and nephrology consultations. I spoke with Dr. Dumont at [facility] who accepts in transfer. 09/01/19 18:57 I was notified by the nurse at about 650 that he was hypoglycemic down to 33, D10 was ordered noting that there is a shortage of D50 and it is unavailable.
[2019-09-01] MEDS ORDERED: DEXTROSE 10% 250 ML IV STA (18:53)
[2019-09-01] MEDS ORDERED: DEXTROSE 10% 250 ML IV ONE (18:55)
[2019-09-01 20:00] VITALS: BP 172/77
--- NOTE | 2019-09-01 21:16 | CONSULTATION NOTE ---
DATE OF SERVICE: 09/01/2019 Physician: Grecia Kemp MD The patient is being seen in the Emergency Room. HISTORY OF PRESENT ILLNESS: This is an 84-year-old white male with history of CKD, followed by a director gift in [place]. He has a history of atrial fibrillation, on warfarin, hypertension, diabetes, and has been on amiodarone for over a year, which has maintained sinus rhythm. The patient was just here, admitted for worsening CKD and new hypercalcemia, and received IV hydration and had improvement in his creatinine and calcium. He did develop worsening pulmonary congestion and volume overload, and the fluid needed to be stopped. The patient was just sent home 2 days ago. He was not told to discontinue his Lasix according to the . The discharge history and physical does indicate, however, that the provider was told by the that they would continue him on the same medications until they saw the director gift as an outpatient, and his medications did include daily Lasix. The patient got home, starts to get weaker, developed a fever and chills, a cough with yellow-white sputum production, and then in last two days was confused in the morning, had to be fed his breakfast, but got better each evening. Also, in the middle of the night last night, awoke and took off all his clothes, then went to the bathroom and left the water on, and then tried to put his clothes back on, but he was putting his bed sheets on as socks. This morning with continued fever to 101, the brought him into the emergency room. In the ER, he had oxygen saturations of 89% and was notably short of breath and also appeared weak and lethargic. Workup included a chest x-ray that was nondefinitive, and a CT of the chest was done that showed ground-glass appearance in 2 separate areas with possible infection suspected there. His fever did increase to 38.9 in the emergency room, and he also had a glucose of 65, which then dropped to 33 in the emergency room. His blood pressure was stable at 130/61. ALLERGIES: Multiple medications includin. CELEBREX 2. KEFLEX. 3. CODEINE. 4. VICODIN. 5. INDOMETHACIN AND OTHER NONSTEROIDALS. 6. VIAGRA. MEDICATIONS 1. Ranitidine 300 mg nightly. 2. Coumadin 2.5 alternating with 5 mg daily. 3. Micardis 40 mg daily. 4. Omeprazole 20 mg daily. 5. Metoprolol tartrate 100 mg b.i.d. 6. Meclizine p.r.n. 7. Glimepiride 2 mg daily. 8. Lasix 40 mg daily. 9. Lipitor 20 mg every night. 10. Amiodarone 100 mg daily. 11. Allopurinol 300 mg daily. FAMILY HISTORY: Noncontributory. SOCIAL HISTORY: Lives with his . He is a nonsmoker and no alcohol abuse history. 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 The patient states he has had the amiodarone followed in terms of its potential side effects but was never told to stop this. REVIEW OF SYSTEMS: A comprehensive review of systems was performed and the pertinent positives are listed, the rest are negative. PHYSICAL EXAMINATION GENERAL: Elderly white male. He appears fatigued. He is not in respiratory distress. VITAL SIGNS: Blood pressure 130-160/50-60, heart rate in the 50s and 60s in sinus rhythm, fever as high as 38.3 in the emergency room, respiratory rate 16- 20 saturation 93% on 2 liters oxygen. HEENT: Reveals dry oral mucosa. His conjunctivae appear glassy and his lids are slightly closed. NECK: No JVD or carotid bruits. CHEST: Diminished breath sounds, but no rales, wheezes, or rhonchi. HEART: Has a 3/6 systolic murmur heard loudest in the aortic area with radiation to the neck. There is no gallop. ABDOMEN: Obese, nontender. No organomegaly. It is hypertympanic. I cannot rule out organomegaly. EXTREMITIES: No clubbing, cyanosis or edema. NEUROLOGIC: Grossly intact. LABORATORY DATA: Normal electrolytes. BUN is 37, creatinine 3.1. At discharge 2 days ago, the creatinine was improved to 2.7. His calcium is 11.1 bilirubin 1.6. Lactic acid 1.9. Normal liver tests and lipase. White blood count 8, hemoglobin 11, platelet count 168. Urinalysis unremarkable. CHEST X-RAY: Ground-glass appearance in 2 locations, small pleural effusions, and possible volume overload, mostly on the right. EKG: Normal sinus rhythm, left atrial enlargement, LVH voltage. An Echocardiogram had just been done 3 days ago at the last admission, and this showed LVH with normal LV contractility and grade 1 diastolic dysfunction present, qcve-[id number] aortic stenosis with peak gradient 40 mmHg and mild tricuspid regurgitation, mitral regurgitation and mild pulmonary hypertension with PA pressure 44 mmHg. IMPRESSION/DIAGNOSES 1. Healthcare-associated pneumonia. The fevers started after he came home from the last recent hospitalization. 2. Amiodarone pulmonary toxicity, suspected, given the chronic cough and tghe ground-glass appearance on CXR.. 3. Pulmonary edema. 4. 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 5. Uxwik-cs-wlmzqdj kidney failure. 6. Diabetes mellitus. 7. Hypoglycemia. 8. Aortic stenosis. PLAN: He was started on IV Levaquin and IV vancomycin for the pneumonia after obtaining blood cultures, which I agree with. Starting gentle iv fluids and stopping Lasix is advised for the recurrent acute on chronic kidney failure. I discussed with the patient and at bedside, that the patient has multiple organs that require attention, best served with specialists such as nephrology, pulmonology and cardiology. The patient and do understand that a critical care access hospital has no specialists and therefore the patient would prefer to be transferred to a hospital with higher level of care where the above specialists are available. This was discussed next with the ED doctor who will reach out for transfer of this patient. Thank you for allowing me to participate in the care of this patient. cc: DEE TD: 09/01/2019 19:44 JOSE
== END 2019-09-01 20:04 | disposition short-term general hospital (02) ==
LOC: ED 12:41
DX: J18.9 Pneumonia, unspecified organism (principal); Y95 Nosocomial condition; N17.9 Acute kidney failure, unspecified; E83.52 Hypercalcemia; R09.02 Hypoxemia; E87.70 Fluid overload, unspecified; E11.22 Type 2 diabetes mellitus with diabetic chronic kidney disease; E11.42 Type 2 diabetes mellitus with diabetic polyneuropathy; E11.649 Type 2 diabetes mellitus with hypoglycemia without coma; I12.9 Hypertensive chronic kidney disease with stage 1 through stage 4 chronic kidney disease, or unspecified chronic kidney disease; N18.9 Chronic kidney disease, unspecified; J81.1 Chronic pulmonary edema; Z79.84 Long term (current) use of oral hypoglycemic drugs
CPT/HCPCS: 36415; 71045; 71250; 80053; 81001; 82330; 83605; 83690; 85025; 85610; 87040; 87275; 87276; 96361; 96365; 96366; 96375; 99284; 99285; A9270; J3370; J3490; 81003; 87086

== ENCOUNTER 2019-09-01 20:09 | Outpatient (CLI) | payer MEDICARE, BC | END 2019-09-01 23:59 | disposition short-term general hospital (02) | LOC: EMS 20:09 | PROVIDERS: ATTEND Surgery | DX: J18.9 Pneumonia, unspecified organism (principal); N17.9 Acute kidney failure, unspecified; I50.9 Heart failure, unspecified | CPT/HCPCS: A0425; A0426 ==

== ENCOUNTER 2019-09-11 08:00 | Outpatient (CLI) | payer MEDICARE, BC ==
[2019-09-11 19:42] LABS: CALCIUM 11.9 mg/dL (8.5-10.3); CREATININE 3.2 mg/dL (0.6-1.2)
== END 2019-09-11 23:59 | disposition home or self-care (01) ==
LOC: LAB.WCP 08:00
PROVIDERS: ATTEND Family Medicine
DX: N17.9 Acute kidney failure, unspecified (principal); E83.52 Hypercalcemia; I48.91 Unspecified atrial fibrillation
CPT/HCPCS: 36415; 80048; 83970

== ENCOUNTER 2019-09-14 13:41 | Outpatient (CLI) | payer MEDICARE, BC ==
[2019-09-14 14:00] LABS: CALCIUM 11.7 mg/dL (8.5-10.3); CREATININE 3.2 mg/dL (0.6-1.2)
== END 2019-09-14 13:42 | disposition home or self-care (01) ==
LOC: LAB 13:41
PROVIDERS: ATTEND Family Medicine
DX: E83.52 Hypercalcemia (principal)
CPT/HCPCS: 36415; 80048

== ENCOUNTER 2019-09-18 08:00 | Outpatient (CLI) | payer MEDICARE, BC ==
[2019-09-18 19:44] LABS: CREATININE 3.1 mg/dL (0.6-1.2)
[2019-09-18 20:24] LABS: CALCIUM 12.2 mg/dL (8.5-10.3)
== END 2019-09-18 23:59 | disposition home or self-care (01) ==
LOC: LAB.WCP 08:00
PROVIDERS: ATTEND Family Medicine
DX: E83.52 Hypercalcemia (principal)
CPT/HCPCS: 36415; 80048

== ENCOUNTER 2019-09-25 08:00 | Outpatient (CLI) | payer MEDICARE, BC ==
[2019-09-25 18:43] LABS: CREATININE 3.1 mg/dL (0.6-1.2)
[2019-09-25 18:52] LABS: CALCIUM 13.6 mg/dL (8.5-10.3)
== END 2019-09-25 23:59 | disposition home or self-care (01) ==
LOC: LAB.WCP 08:00
PROVIDERS: ATTEND Family Medicine
DX: E83.52 Hypercalcemia (principal)
CPT/HCPCS: 36415; 80048

== ENCOUNTER 2019-09-30 12:55 | Outpatient (CLI) | payer MEDICARE, BC ==
[2019-09-30 18:40] LABS: CREATININE 3.4 mg/dL (0.6-1.2)
[2019-09-30 20:15] LABS: CALCIUM 15.4 mg/dL (8.5-10.3)
== END 2019-09-30 23:59 | disposition home or self-care (01) ==
LOC: LAB.WCP 12:55
PROVIDERS: ATTEND Family Medicine
DX: E83.52 Hypercalcemia (principal)
CPT/HCPCS: 36415; 80048; 83970

== ENCOUNTER 2019-09-30 22:23 | Emergency (ER) | payer MEDICARE, BC ==
--- NOTE | 2019-10-01 01:14 | ED Physician Documentation ---
History of Present Illness - Stated complaint Stated Complaint: HIGH CALCIUM - LAB RESULTS - PCP REFERRAL - Chief complaint Chief Complaint: General - History obtained from History obtained from: Patient - History of Present Illness Timing: How many days ago (3-4) Pain level now: 0 Improved by: no ameliorating factors Worsened by: no exacerbating factors Associated symptoms: weakness, unsteady gait - Additonal information Additional information: c/o few days of increasing generalized weakness, unsteady gait causing him to stumble and "bump into jarvis" (per patient), hoarse voice. He has had problems with hypercalcemia and worsening kidney function recently including inpatient stays for same, but patient says no cause for the elevated calcium levels has been determined thus far. His PMD increased his lasix on Monday (3 days ago) from 40mg to 60 mg for increasing calcium levels. Today, he had outpatient tests and calcium was over 15; he was thus advised to come to ED . Review of Systems Constitutional: reports: Fatigue. denies: Fever, Chills, Myalgias, Sweats Eyes: reports: Reviewed and negative Ears: reports: Reviewed and negative Nose: reports: Reviewed and negative Cardiac: reports: Reviewed and negative Respiratory: reports: Reviewed and negative GI: reports: Reviewed and negative : denies: Dysuria, Frequency Skin: reports: Reviewed and negative Musculoskeletal: reports: Reviewed and negative Neurologic: reports: Generalized weakness. denies: Focal weakness, Numbness, Confused, Altered mental status, Headache PD PAST MEDICAL HISTORY - Past Medical History Cardiovascular: Hypertension, High cholesterol, Atrial fibrillation Respiratory: None Neuro: Peripheral neuropathy Endocrine/Autoimmune: Type 2 diabetes GI: GERD : Renal insuffiency HEENT: None Psych: None Musculoskeletal: Rheumatoid arthritis, Gout Derm: None - Past Surgical History Past Surgical History: Yes General: Cholecystectomy Ortho: Arthroscopic surgery HEENT: Tonsil/Adenoidectomy Derm: Skin cancer surgery - Present Medications Home Medications: Ambulatory Orders Medication Instructions Recorded Confirmed Allopurinol [Zyloprim] 300 mg PO DAILY 08/27/19 08/28/19 Amiodarone [Pacerone] 100 mg PO DAILY 08/27/19 08/27/19 Furosemide [Lasix] 40 mg PO DAILY 08/27/19 08/28/19 Glimepiride 2 mg PO DAILY 08/27/19 08/28/19 Metoprolol Tartrate 100 mg PO BID 08/27/19 08/28/19 Omeprazole 20 mg PO DAILY 08/27/19 08/28/19 Warfarin [Coumadin] 5 mg PO TUTHSA 08/27/19 08/28/19 Atorvastatin Calcium 20 mg PO QPM 08/28/19 08/28/19 Meclizine HCl 25 mg PO TID PRN 08/28/19 08/28/19 Telmisartan [Micardis] 40 mg PO DAILY 08/28/19 08/28/19 Warfarin [Coumadin] 2.5 mg PO SUMOWEFR 08/28/19 08/28/19 raNITIdine HCL [Ranitidine HCl] 300 mg PO QPM 08/28/19 08/28/19 - Allergies Allergies/Adverse Reactions: Allergies Allergy/AdvReac Type Severity Reaction Status Date / Time celecoxib [From Celebrex] Allergy Unknown Verified 09/30/19 22:31 cephalexin [From Keflex] Allergy Nausea Verified 09/30/19 22:31 codeine Allergy Itching Verified 09/30/19 22:31 hydrocodone [From Vicodin] Allergy Itching Verified 09/30/19 22:31 indomethacin Allergy Unknown Verified 09/30/19 22:31 NSAIDS (Non-Steroidal Allergy Unknown Verified 09/30/19 22:31 Anti-Inflamma rofecoxib [From Vioxx] Allergy Unknown Verified 09/30/19 22:31 sildenafil [From Viagra] Allergy Diaphoresis Verified 09/30/19 22:31 - Social History Does the pt smoke?: No Smoking Status: Never smoker Does the pt drink ETOH?: No Does the pt have substance abuse?: No - Immunizations Immunizations are current?: Yes - POLST Patient has POLST: No PD ED PE NORMAL - Vitals Vital signs reviewed: Yes - General General: Alert 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, Other (voice is hoarse) - HEENT HEENT: Moist mucous membranes, Other (left ptosis (chronic since childhood, per patient)) - Neck Neck: Supple, no meningeal sign - Cardiac Cardiac: RRR - Respiratory Respiratory: No respiratory distress, Clear bilaterally - Abdomen Abdomen: Soft, Non tender - Back Back: No CVA TTP, No spinal TTP - Derm Derm: Normal color, Warm and dry - Extremities Extremities: No edema - Neuro Neuro: Alert 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, 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 Eye Opening: Spontaneous Motor: Obeys Commands Verbal: Oriented GCS Score: 15 - Psych Psych: Normal mood, Normal affect PD ED PE EXPANDED - Cardiac Cardiac: Murmur Present (2/6 JIM) Results - Vitals Vitals: Vital Signs - 24 hr 09/30/19 10/01/19 10/01/19 22:28 02:15 04:00 Temperature 36.4 C L Heart Rate 50 L 55 L 57 L Respiratory 18 12 15 Rate Blood Pressure 131/63 H 167/82 H O2 Saturation 96 94 Oxygen O2 Source Room air - EKG (time done) No standard instances Rate: Rate (enter#) (52) Rhythm: NSR [place]: LAD Intervals: Prolonged CO QRS: LVH Ischemia: Normal ST segments - Labs Labs: Laboratory Tests 10/01/19 10/01/19 10/01/19 01:19 01:19 01:19 WBC 7.9 RBC 4.29 L Hgb 13.3 L Hct 42.1 MCV 98.1 H MCH 31.0 MCHC 31.6 L RDW 14.2 Plt Count 177 MPV 10.9 Neut # (Auto) 4.2 Lymph # (Auto) 1.8 [place] # (Auto) 1.5 H Eos # (Auto) 0.4 Baso # (Auto) 0.1 Absolute Nucleated RBC 0.00 Nucleated RBC % 0.0 PT INR APTT Sodium 140 Potassium 4.2 Chloride 100 L Carbon Dioxide 30 Anion Gap 10.0 BUN 48 H Creatinine 3.4 H Estimated GFR (MDRD) 17 L Glucose 137 H Calcium 15.3 H* Phosphorus 3.6 Magnesium 2.0 Total Bilirubin 0.7 AST 35 ALT 45 Alkaline Phosphatase 120 Total Protein 7.4 Albumin 3.7 Globulin 3.7 Albumin/Globulin Ratio 1.0 Lipase 53 H TSH 3.06 Free T4 1.13 T3 Uptake 40.7 10/01/19 01:19 WBC RBC Hgb Hct MCV MCH MCHC RDW Plt Count MPV Neut # (Auto) Lymph # (Auto) [place] # (Auto) Eos # (Auto) Baso # (Auto) Absolute Nucleated RBC Nucleated RBC % PT 56.0 H INR 5.4 H* APTT 53.2 H Sodium Potassium Chloride Carbon Dioxide Anion Gap BUN Creatinine Estimated GFR (MDRD) Glucose Calcium Phosphorus Magnesium Total Bilirubin AST ALT Alkaline Phosphatase Total Protein Albumin Globulin Albumin/Globulin Ratio Lipase TSH Free T4 T3 Uptake PD MEDICAL DECISION MAKING - ED course Complexity details: reviewed old records, reviewed results, re-evaluated patient, considered differential, d/w patient, d/w family ED course: D/W Dr. Larios, recommends transfer to higher level of care. D/W Dr. Montanez (hospitalist at [facility]), accepts transfer Departure - Departure Disposition: 02 Transfer Acute Care Hosp Clinical Impression: Hypercalcemia Condition: Stable Discharge Date/Time: 10/01/19 05:46
[2019-10-01 01:25] LABS: BASOPHILS # (AUTO) 0.1 10^3/uL (0.0-0.1); BASOPHILS % (AUTO) 0.9 %; EOSINOPHILS # (AUTO) 0.4 10^3/uL (0.0-0.7); EOSINOPHILS % (AUTO) 4.4 %; HGB - HEMOGLOBIN 13.3 g/dL (14.0-18.0); LYMPHOCYTES # (AUTO) 1.8 10^3/uL (1.5-3.5); LYMPHOCYTES % (AUTO) 22.3 %; MEAN CORPUSCULAR HGB CONC 31.6 g/dL (32.0-36.0); MEAN CORPUSCULAR VOLUME 98.1 fL (80.0-94.0); MEAN PLATELET VOLUME 10.9 fL (7.4-11.4); MONOCYTES # (AUTO) 1.5 10^3/uL (0.0-1.0); MONOCYTES % (AUTO) 18.6 %; NEUTROPHILS # (AUTO) 4.2 10^3/uL (1.5-6.6); NEUTROPHILS % (AUTO) 53.4 %; PLT - PLATELET COUNT 177 10^3/uL (130-450); RED BLOOD COUNT 4.29 10^6/uL (4.70-6.10); RED CELL DISTRIBUTION WIDTH 14.2 % (12.0-15.0); WHITE BLOOD COUNT 7.9 x10^3/uL (4.8-10.8)
[2019-10-01 01:52] LABS: ALBUMIN 3.7 g/dL (3.2-5.5); BILIRUBIN,TOTAL 0.7 mg/dL (0.2-1.0); CREATININE 3.4 mg/dL (0.6-1.2); PHOSPHORUS 3.6 mg/dL (2.5-4.6); TOTAL PROTEIN 7.4 g/dL (6.7-8.2)
[2019-10-01 01:53] LABS: CALCIUM 15.3 mg/dL (8.5-10.3)
[2019-10-01 02:06] LABS: PARTIAL THROMBOPLASTIN TIME 53.2 secs (24.9-33.3)
[2019-10-01 02:08] LABS: INR 5.4 (0.8-1.2)
[2019-10-01 02:12] LABS: T3 UPTAKE 40.7 % (32.0-48.4)
[2019-10-01 02:16] LABS: THYROID STIMULATING HORMONE 3.06 uIU/mL (0.34-5.60)
[2019-10-01 02:18] LABS: FREE T4 (FREE THYROXINE) 1.13 ng/dL (0.58-1.64)
[2019-10-01 05:24] VITALS: BP 167/82
== END 2019-10-01 05:46 | disposition short-term general hospital (02) ==
LOC: ED 22:23
DX: E11.65 Type 2 diabetes mellitus with hyperglycemia (principal); E11.29 Type 2 diabetes mellitus with other diabetic kidney complication; I10 Essential (primary) hypertension; Z79.84 Long term (current) use of oral hypoglycemic drugs; E83.52 Hypercalcemia
CPT/HCPCS: 36415; 80048; 80053; 83690; 83735; 83970; 84100; 84439; 84443; 84479; 85025; 85610; 85730; 93005; 99285

== ENCOUNTER 2019-10-01 05:44 | Outpatient (CLI) | payer MEDICARE, BC | END 2019-10-01 05:45 | disposition short-term general hospital (02) | LOC: EMS 05:44 | PROVIDERS: ATTEND Surgery | DX: R79.89 Other specified abnormal findings of blood chemistry (principal); N28.9 Disorder of kidney and ureter, unspecified | CPT/HCPCS: A0425; A0427 ==

== ENCOUNTER 2019-10-24 13:52 | Outpatient (CLI) | payer MEDICARE, BC ==
[2019-10-24 18:52] LABS: ALBUMIN/GLOBULIN RATIO 0.7 (1.0-2.2); BILIRUBIN,TOTAL 0.5 mg/dL (0.2-1.0); CALCIUM 9.1 mg/dL (8.5-10.3); TOTAL PROTEIN 7.1 g/dL (6.7-8.2)
== END 2019-10-24 23:59 | disposition home or self-care (01) ==
LOC: LAB.WCP 13:52
PROVIDERS: ATTEND Family Medicine
DX: E83.52 Hypercalcemia (principal); I10 Essential (primary) hypertension
CPT/HCPCS: 36415; 80053; 83970; 84443

== ENCOUNTER 2019-11-19 08:00 | Outpatient (CLI) | payer MEDICARE, BC ==
[2019-11-19 16:36] LABS: HGB - HEMOGLOBIN 11.8 g/dL (14.0-18.0); MEAN CORPUSCULAR HEMOGLOBIN 30.4 pg (27.0-31.0); MEAN CORPUSCULAR HGB CONC 31.2 g/dL (32.0-36.0); MEAN CORPUSCULAR VOLUME 97.4 fL (80.0-94.0); RED BLOOD COUNT 3.88 10^6/uL (4.70-6.10); RED CELL DISTRIBUTION WIDTH 15.9 % (12.0-15.0); WHITE BLOOD COUNT 5.7 x10^3/uL (4.8-10.8)
[2019-11-19 16:53] LABS: ALBUMIN 3.6 g/dL (3.2-5.5); CALCIUM 11.4 mg/dL (8.5-10.3); CREATININE 3.4 mg/dL (0.6-1.2); PHOSPHORUS 3.8 mg/dL (2.5-4.6); URIC ACID 6.4 mg/dL (2.6-7.2)
[2019-11-19 16:55] LABS: CREATININE,URINE 115.4 mg/dL; MICROALBUMIN,URINE 25.5 mg/dL (0-300.0)
[2019-11-19 16:56] LABS: HB2 TOTAL 12.1 g/dL; HEMOGLOBIN A1C 0.53 g/dL; HEMOGLOBIN A1C % 6.2 % (4.6-6.2)
== END 2019-11-19 23:59 | disposition home or self-care (01) ==
LOC: LAB.WCP 08:00
PROVIDERS: ATTEND Internal Medicine Nephrology
DX: E11.22 Type 2 diabetes mellitus with diabetic chronic kidney disease (principal); N17.9 Acute kidney failure, unspecified; Z79.01 Long term (current) use of anticoagulants; I48.92 Unspecified atrial flutter; E21.1 Secondary hyperparathyroidism, not elsewhere classified; R80.9 Proteinuria, unspecified; N18.3 Chronic kidney disease, stage 3 (moderate)
CPT/HCPCS: 36415; 80069; 82043; 82570; 83036; 83970; 84550; 85027

== ENCOUNTER 2019-12-09 12:00 | Outpatient (CLI) | payer MEDICARE, BC ==
[2019-12-09 18:13] LABS: ALBUMIN 3.5 g/dL (3.2-5.5); CALCIUM 10.8 mg/dL (8.5-10.3); CREATININE 3.2 mg/dL (0.6-1.2); PHOSPHORUS 3.4 mg/dL (2.5-4.6)
== END 2019-12-09 23:59 | disposition home or self-care (01) ==
LOC: LAB.WCP 12:00
PROVIDERS: ATTEND Internal Medicine Nephrology
DX: N17.9 Acute kidney failure, unspecified (principal); E21.1 Secondary hyperparathyroidism, not elsewhere classified; N18.3 Chronic kidney disease, stage 3 (moderate); R80.9 Proteinuria, unspecified; Z79.01 Long term (current) use of anticoagulants; I48.91 Unspecified atrial fibrillation
CPT/HCPCS: 36415; 80069

== ENCOUNTER 2019-12-11 08:00 | Outpatient (CLI) | payer MEDICARE, BC | END 2019-12-11 23:59 | disposition home or self-care (01) | LOC: LAB.WCP 08:00 | PROVIDERS: ATTEND Student in an Organized Health Care Education/Training Program | DX: E83.52 Hypercalcemia (principal) | CPT/HCPCS: 36415; 81599; 82306; 82310; 82652; 83519; 83970 ==

== ENCOUNTER 2019-12-23 08:00 | Outpatient (CLI) | payer MEDICARE, BC | END 2019-12-23 23:59 | disposition home or self-care (01) | LOC: LAB.WCP 08:00 | PROVIDERS: ATTEND Family Medicine | DX: I48.91 Unspecified atrial fibrillation (principal); Z79.01 Long term (current) use of anticoagulants ==

== ENCOUNTER 2019-12-23 12:19 | Outpatient (CLI) | payer MEDICARE, BC ==
[2019-12-23 12:41] LABS: BASOPHILS # (AUTO) 0.1 10^3/uL (0.0-0.1); BASOPHILS % (AUTO) 1.1 %; EOSINOPHILS # (AUTO) 0.4 10^3/uL (0.0-0.7); EOSINOPHILS % (AUTO) 5.6 %; HGB - HEMOGLOBIN 10.4 g/dL (14.0-18.0); LYMPHOCYTES # (AUTO) 1.3 10^3/uL (1.5-3.5); LYMPHOCYTES % (AUTO) 20.2 %; MEAN CORPUSCULAR HEMOGLOBIN 30.5 pg (27.0-31.0); MEAN CORPUSCULAR HGB CONC 31.1 g/dL (32.0-36.0); MEAN CORPUSCULAR VOLUME 97.9 fL (80.0-94.0); MEAN PLATELET VOLUME 10.5 fL (7.4-11.4); MONOCYTES # (AUTO) 1.5 10^3/uL (0.0-1.0); MONOCYTES % (AUTO) 22.2 %; NEUTROPHILS # (AUTO) 3.3 10^3/uL (1.5-6.6); NEUTROPHILS % (AUTO) 50.6 %; PLT - PLATELET COUNT 223 10^3/uL (130-450); RED BLOOD COUNT 3.41 10^6/uL (4.70-6.10); RED CELL DISTRIBUTION WIDTH 16.7 % (12.0-15.0); WHITE BLOOD COUNT 6.6 x10^3/uL (4.8-10.8)
--- NOTE | 2019-12-24 10:06 | CT Report ---
Reason: HYPERCALCEMIA Procedure Date: 12/23/2019 Accession Number: [id number] / [id number] Procedure: CT - CHEST WO CPT Code: Final Report FULL RESULT: EXAM: HIGH RESOLUTION CT CHEST WITHOUT CONTRAST EXAM DATE: 12/23/2019 12:50 PM. CLINICAL HISTORY: Hypercalcemia. Concern for ILD. COMPARISONS: Noncontrast chest CT 09/01/2019. TECHNIQUE: High resolution chest CT with 1 mm axial sections through the lungs at 20 mm intervals during inspiration in supine and prone positions and during expiration in supine position, with additional 5 mm thick helical scanning. IV contrast: None. Reconstructions: Coronal and sagittal. In accordance with CT protocol optimization, one or more of the following dose reduction techniques were utilized for this exam: automated exposure control, adjustment of mA and/or KV based on patient size, or use of iterative reconstructive technique. FINDINGS: Lungs: There are patchy groundglass opacities with superimposed fine reticular densities due to intralobular septal thickening, more prominent in the periphery of upper and lower lobes, right greater than left. Associated traction bronchiolectasis, without honeycombing. No nodule or edema. Mild scattered expiratory air trapping. Pleura: Unremarkable. No thickening or calcification. Resolution of bilateral effusions. Mediastinum: Normal heart size. No pericardial effusion. Multivessel coronary and aortic calcifications. No aneurysm. Pulmonary trunk is not dilated. Prominent dystrophic aortic valvular calcifications. Calcified mitral annulus. No mediastinal or hilar adenopathy by size criteria. No esophageal dilatation. Bones: Degenerative changes of the spine suggestive of DISH. No acute fracture or aggressive bone destructive process. Visualized Abdomen: Cholecystectomy. 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 Partially visualized small midline fat-containing ventral hernia. A small upper pole left renal cyst. Other: Mildly heterogeneous thyroid gland as before. IMPRESSION: 1. Consistent with interstitial pulmonary fibrosis, right greater than left. Lack of honeycombing is inconsistent with UIP pattern. Appearance favors NSIP pattern, with differential including connective tissue disease, hypersensitivity pneumonitis, or drug reaction. 2. Interval resolution of bilateral pleural effusions. No pulmonary edema, nodule, or consolidation. 3. Atherosclerosis including multivessel coronary calcifications. 4. Prominent dystrophic aortic valvular calcifications, potentially aortic stenosis. 5. Reference other incidental and chronic findings above, including a small upper pole left renal cyst with no recommended imaging follow-up based on consensus recommendations per imaging criteria. RADIA
== END 2019-12-23 12:20 | disposition home or self-care (01) ==
LOC: DI 12:19
PROVIDERS: ATTEND Student in an Organized Health Care Education/Training Program
DX: R91.8 Other nonspecific abnormal finding of lung field (principal); I25.10 Atherosclerotic heart disease of native coronary artery without angina pectoris; I70.0 Atherosclerosis of aorta; E83.52 Hypercalcemia
CPT/HCPCS: 36415; 71250; 85025

== ENCOUNTER 2020-01-20 08:00 | Outpatient (CLI) | payer MEDICARE, BC | END 2020-01-20 23:59 | disposition home or self-care (01) | LOC: LAB.WCP 08:00 | PROVIDERS: ATTEND Student in an Organized Health Care Education/Training Program | DX: I48.92 Unspecified atrial flutter (principal); Z79.01 Long term (current) use of anticoagulants ==

== ENCOUNTER 2020-01-22 08:00 | Outpatient (CLI) | payer MEDICARE, BC ==
[2020-01-22 18:56] LABS: CREATININE,URINE 93.8 mg/dL
[2020-01-24 23:24] LABS: ALBUMIN 3.5 g/dL (3.8-4.8); ALPHA 1 GLOBULIN 0.4 g/dL (0.2-0.3); ALPHA 2 GLOBULIN 0.9 g/dL (0.5-0.9); BETA 1 GLOBULIN 0.4 g/dL (0.4-0.6); BETA 2 GLOBULIN 0.4 g/dL (0.2-0.5); GAMMA GLOBULIN 1.2 g/dL (0.8-1.7)
== END 2020-01-22 23:59 | disposition home or self-care (01) ==
LOC: LAB.WCP 08:00
PROVIDERS: ATTEND Student in an Organized Health Care Education/Training Program
DX: E83.52 Hypercalcemia (principal)
CPT/HCPCS: 36415; 81599; 82340; 82570; 83883; 84155; 84156; 84165; 84166; 86021

== ENCOUNTER 2020-02-05 12:25 | Outpatient (CLI) | payer MEDICARE, BC ==
[2020-02-05 18:43] LABS: HGB - HEMOGLOBIN 7.6 g/dL (14.0-18.0); MEAN CORPUSCULAR HEMOGLOBIN 28.4 pg (27.0-31.0); MEAN CORPUSCULAR HGB CONC 29.2 g/dL (32.0-36.0); MEAN PLATELET VOLUME 11.4 fL (7.4-11.4); RED BLOOD COUNT 2.68 10^6/uL (4.70-6.10); RED CELL DISTRIBUTION WIDTH 15.5 % (12.0-15.0); WHITE BLOOD COUNT 6.2 x10^3/uL (4.8-10.8)
[2020-02-05 18:59] LABS: ALBUMIN 3.4 g/dL (3.2-5.5); CALCIUM 10.9 mg/dL (8.5-10.3); PHOSPHORUS 4.2 mg/dL (2.5-4.6); URIC ACID 6.5 mg/dL (2.6-7.2)
[2020-02-05 19:17] LABS: CREATININE,URINE 91.7 mg/dL; MICROALBUM/CREATININE RATIO,UR 162.5 ug/mg (<30.0); MICROALBUMIN,URINE 14.9 mg/dL (0-300.0)
== END 2020-02-05 23:59 | disposition home or self-care (01) ==
LOC: LAB.WCP 12:25
PROVIDERS: ATTEND Internal Medicine Nephrology
DX: N17.9 Acute kidney failure, unspecified (principal); E21.1 Secondary hyperparathyroidism, not elsewhere classified; N18.3 Chronic kidney disease, stage 3 (moderate); R80.9 Proteinuria, unspecified
CPT/HCPCS: 36415; 80069; 82043; 82570; 83970; 84550; 85027

== ENCOUNTER 2020-02-06 10:53 | Outpatient (CLI) | payer MEDICARE, BC ==
--- NOTE | 2020-02-06 11:32 | XRAY Report ---
Reason: INTERSTITIAL LUNG DISEASE Procedure Date: 02/06/2020 Accession Number: [id number] / [id number] Procedure: WCP - Chest 2 View X-Ray CPT Code: 55985 Final Report FULL RESULT: PROCEDURE: Chest 2 View X-Ray INDICATIONS: INTERSTITIAL LUNG DISEASE TECHNIQUE: 2 view(s) of the chest. COMPARISON: Chest x-ray examination dated 09.01.19 FINDINGS: Surgical changes and devices: None. Lungs and pleura: No pleural effusions or pneumothorax. Mild diffuse reticulonodular pulmonary opacity is present. Mediastinum: Mediastinal contours are normal. Heart size is enlarged. Bones and chest wall: No suspicious bony abnormalities. Soft tissues appear unremarkable. IMPRESSION: 1. Mild interstitial lung disease. 2. Cardiomegaly. Reviewed by: Beni Meza MD on 02/06/2020 11:31 AM PDT Approved by: Beni Meza MD on 02/06/2020 11:31 AM PDT Station ID: [id number]
--- NOTE | 2020-02-06 11:33 | XRAY Report ---
Reason: LUMBAR DISC DISORDER Procedure Date: 02/06/2020 Accession Number: [id number] / [id number] Procedure: WCP - Lumbar Spine 2 View CPT Code: Final Report FULL RESULT: PROCEDURE: Lumbar Spine 2 View INDICATIONS: LUMBAR DISC DISORDER TECHNIQUE: 2 views of the lumbar spine were acquired. COMPARISON: CT examination dated 08.18.17 FINDINGS: Bones: 5 [id number] vertebrae are present. There is normal bony alignment. No vertebral body compression fractures. No suspicious bony lesions. Multilevel disc space narrowing and endplate osteophyte formation. Facet hypertrophy throughout the mid and lower lumbar spine. Soft tissues: Overlying bowel gas pattern is normal. No suspicious soft tissue calcifications. IMPRESSION: 1. Multilevel degenerative disc and facet disease. 2. No acute fracture. No osseous lesion. If symptoms and/or clinical suspicion for pathology continue, further assessment with repeat plain films, or advanced imaging (e.g., CT, MRI, or bone scan) is recommended for further assessment. Reviewed by: Beni Meza MD on 02/06/2020 11:32 AM PDT Approved by: Beni Meza MD on 02/06/2020 11:32 AM PDT Station ID: [id number]
== END 2020-02-06 23:59 | disposition home or self-care (01) ==
LOC: DI.WCP 10:53
PROVIDERS: ATTEND Family Medicine
DX: J84.9 Interstitial pulmonary disease, unspecified (principal); I51.7 Cardiomegaly; M47.816 Spondylosis without myelopathy or radiculopathy, lumbar region; M51.36 Other intervertebral disc degeneration, lumbar region
CPT/HCPCS: 71046; 72100

== ENCOUNTER 2020-02-18 08:00 | Outpatient (CLI) | payer MEDICARE, BC | END 2020-02-18 23:59 | disposition home or self-care (01) | LOC: LAB.WCP 08:00 | PROVIDERS: ATTEND Family Medicine | DX: I48.92 Unspecified atrial flutter (principal); I48.91 Unspecified atrial fibrillation; Z79.01 Long term (current) use of anticoagulants ==

== ENCOUNTER 2020-03-03 08:00 | Outpatient (CLI) | payer MEDICARE, BC | END 2020-03-03 23:59 | disposition home or self-care (01) | LOC: LAB.WCP 08:00 | PROVIDERS: ATTEND Family Medicine | DX: I48.91 Unspecified atrial fibrillation (principal); Z79.01 Long term (current) use of anticoagulants ==

== ENCOUNTER 2020-03-24 17:01 | Outpatient (CLI) | payer MEDICARE, BC ==
[2020-03-24 18:42] LABS: HGB - HEMOGLOBIN 9.4 g/dL (14.0-18.0); MEAN CORPUSCULAR HEMOGLOBIN 25.8 pg (27.0-31.0); MEAN CORPUSCULAR HGB CONC 28.1 g/dL (32.0-36.0); MEAN CORPUSCULAR VOLUME 91.5 fL (80.0-94.0); MEAN PLATELET VOLUME 10.4 fL (7.4-11.4); RED BLOOD COUNT 3.65 10^6/uL (4.70-6.10); RED CELL DISTRIBUTION WIDTH 17.2 % (12.0-15.0); WHITE BLOOD COUNT 6.6 x10^3/uL (4.8-10.8)
[2020-03-24 19:01] LABS: ALBUMIN 3.5 g/dL (3.2-5.5); CALCIUM 10.5 mg/dL (8.5-10.3); CREATININE 3.9 mg/dL (0.6-1.2); PHOSPHORUS 2.9 mg/dL (2.5-4.6); URIC ACID 6.6 mg/dL (2.6-7.2)
[2020-03-24 19:08] LABS: CREATININE,URINE 85.4 mg/dL; MICROALBUM/CREATININE RATIO,UR 117.1 ug/mg (<30.0)
== END 2020-03-24 23:59 | disposition home or self-care (01) ==
LOC: LAB.WCP 17:01
PROVIDERS: ATTEND Internal Medicine Nephrology
DX: E21.1 Secondary hyperparathyroidism, not elsewhere classified (principal); I12.9 Hypertensive chronic kidney disease with stage 1 through stage 4 chronic kidney disease, or unspecified chronic kidney disease; N18.3 Chronic kidney disease, stage 3 (moderate); R80.9 Proteinuria, unspecified
CPT/HCPCS: 36415; 80069; 82043; 82570; 83880; 83970; 84550; 85025; 85027

== ENCOUNTER 2020-03-25 08:00 | Outpatient (CLI) | payer MEDICARE, BC ==
[2020-03-25 13:00] LABS: INR 4.4 (0.8-1.2); PT - PROTHROMBIN TIME 45.8 secs (9.9-12.6)
== END 2020-03-25 23:59 | disposition home or self-care (01) ==
LOC: LAB.R 08:00
PROVIDERS: ATTEND Family Medicine
DX: Z79.01 Long term (current) use of anticoagulants (principal); I48.0 Paroxysmal atrial fibrillation
CPT/HCPCS: 85610

== ENCOUNTER 2020-04-03 08:00 | Outpatient (CLI) | payer MEDICARE, BC ==
[2020-04-03 18:17] LABS: CALCIUM 11.9 mg/dL (8.5-10.3); CREATININE 3.7 mg/dL (0.6-1.2)
== END 2020-04-03 23:59 | disposition home or self-care (01) ==
LOC: LAB.WCP 08:00
PROVIDERS: ATTEND Family Medicine
DX: R06.09 Other forms of dyspnea (principal)
CPT/HCPCS: 36415; 80048; 83880

== ENCOUNTER 2020-04-10 15:05 | Outpatient (CLI) | payer MEDICARE, BC ==
[2020-04-10 16:40] LABS: PT - PROTHROMBIN TIME 55.5 secs (9.9-12.6)
[2020-04-10 16:49] LABS: INR 5.4 (0.8-1.2)
== END 2020-04-10 23:59 | disposition home or self-care (01) ==
LOC: LAB.R 15:05
PROVIDERS: ATTEND Family Medicine
DX: Z79.01 Long term (current) use of anticoagulants (principal)
CPT/HCPCS: 85610

== ENCOUNTER 2020-04-23 08:00 | Outpatient (CLI) | payer MEDICARE, BC ==
[2020-04-23 18:30] LABS: BASOPHILS # (AUTO) 0.1 10^3/uL (0.0-0.1); BASOPHILS % (AUTO) 1.2 %; EOSINOPHILS # (AUTO) 0.4 10^3/uL (0.0-0.7); EOSINOPHILS % (AUTO) 5.7 %; HGB - HEMOGLOBIN 12.3 g/dL (14.0-18.0); LYMPHOCYTES # (AUTO) 1.3 10^3/uL (1.5-3.5); LYMPHOCYTES % (AUTO) 19.1 %; MEAN CORPUSCULAR HEMOGLOBIN 29.1 pg (27.0-31.0); MEAN CORPUSCULAR HGB CONC 29.7 g/dL (32.0-36.0); MEAN CORPUSCULAR VOLUME 97.9 fL (80.0-94.0); MONOCYTES % (AUTO) 14.7 %; PLT - PLATELET COUNT 211 10^3/uL (130-450); RED BLOOD COUNT 4.23 10^6/uL (4.70-6.10); RED CELL DISTRIBUTION WIDTH 22.3 % (12.0-15.0); WHITE BLOOD COUNT 6.8 x10^3/uL (4.8-10.8)
[2020-04-23 19:14] LABS: PLATELET ESTIMATE, MANUAL NORMAL (130-450,000) (NORMAL); PLATELET MORPHOLOGY NORMAL APPEARANCE (NORMAL)
[2020-04-23 19:16] LABS: ALBUMIN 3.7 g/dL (3.2-5.5); ALBUMIN/GLOBULIN RATIO 0.9 (1.0-2.2); ALKALINE PHOSPHATASE 103 IU/L (42-121); ALT ALANINE AMINOTRANSFERASE 16 IU/L (10-60); AST ASPARTATE AMINOTRANSFERASE 20 IU/L (10-42); BILIRUBIN,TOTAL 0.7 mg/dL (0.2-1.0); BUN - BLOOD UREA NITROGEN 41 mg/dL (6-20); CARBON DIOXIDE - CO2 34 mmol/L (21-32); CHLORIDE 99 mmol/L (101-111); CREATININE 3.8 mg/dL (0.6-1.2); DIGOXIN 2.2 ng/mL; GLUCOSE 164 mg/dL (70-100); SODIUM 142 mmol/L (135-145); TOTAL PROTEIN 7.6 g/dL (6.7-8.2)
[2020-04-23 19:44] LABS: CALCIUM 12.8 mg/dL (8.5-10.3)
[2020-04-23 20:05] LABS: HEMOGLOBIN A1c% 5.9 % (4.27-6.07)
== END 2020-04-23 23:59 | disposition home or self-care (01) ==
LOC: LAB.WCP 08:00
PROVIDERS: ATTEND Family Medicine
DX: I35.0 Nonrheumatic aortic (valve) stenosis (principal); E11.9 Type 2 diabetes mellitus without complications; I13.0 Hypertensive heart and chronic kidney disease with heart failure and stage 1 through stage 4 chronic kidney disease, or unspecified chronic kidney disease; I48.91 Unspecified atrial fibrillation; N18.3 Chronic kidney disease, stage 3 (moderate); N17.9 Acute kidney failure, unspecified; R06.09 Other forms of dyspnea; Z79.01 Long term (current) use of anticoagulants; I42.9 Cardiomyopathy, unspecified
CPT/HCPCS: 36415; 80053; 80162; 83036; 83880; 83970; 84443; 85025

== ENCOUNTER 2020-04-27 08:00 | Outpatient (CLI) | payer MEDICARE, BC ==
[2020-04-27 19:26] LABS: CALCIUM 11.9 mg/dL (8.5-10.3); CREATININE 4.2 mg/dL (0.6-1.2)
[2020-04-27 19:36] LABS: CREATININE,URINE 156.7 mg/dL; MICROALBUM/CREATININE RATIO,UR 152.5 ug/mg (<30.0); MICROALBUMIN,URINE 23.9 mg/dL (0-300.0)
== END 2020-04-27 23:59 | disposition home or self-care (01) ==
LOC: LAB.WCP 08:00
PROVIDERS: ATTEND Family Medicine
DX: D64.9 Anemia, unspecified (principal); I42.9 Cardiomyopathy, unspecified; E11.22 Type 2 diabetes mellitus with diabetic chronic kidney disease; I12.9 Hypertensive chronic kidney disease with stage 1 through stage 4 chronic kidney disease, or unspecified chronic kidney disease; N18.3 Chronic kidney disease, stage 3 (moderate); E83.52 Hypercalcemia
CPT/HCPCS: 36415; 80048; 82043; 82570; 83970

== ENCOUNTER 2020-05-01 12:08 | Emergency (ER) | payer MEDICARE, BC ==
[2020-05-01 12:40] LABS: BASOPHILS % (AUTO) 0.9 %; EOSINOPHILS % (AUTO) 5.4 %; HGB - HEMOGLOBIN 13.4 g/dL (14.0-18.0); LYMPHOCYTES % (AUTO) 20.7 %; MEAN CORPUSCULAR HEMOGLOBIN 29.6 pg (27.0-31.0); MEAN CORPUSCULAR HGB CONC 30.3 g/dL (32.0-36.0); MEAN CORPUSCULAR VOLUME 97.6 fL (80.0-94.0); MEAN PLATELET VOLUME 10.4 fL (7.4-11.4); MONOCYTES % (AUTO) 17.1 %; NEUTROPHILS % (AUTO) 55.5 %; PLT - PLATELET COUNT 203 10^3/uL (130-450); RED BLOOD COUNT 4.53 10^6/uL (4.70-6.10); RED CELL DISTRIBUTION WIDTH 21.4 % (12.0-15.0); WHITE BLOOD COUNT 6.7 x10^3/uL (4.8-10.8)
[2020-05-01 12:47] LABS: ABNORMAL LYMPHS % (MANUAL) 0 %; BAND NEUTROPHILS % (MANUAL) 0 %
--- NOTE | 2020-05-01 12:47 | XRAY Report ---
PROCEDURE: Chest 1 View X-Ray INDICATIONS: Chest Pain TECHNIQUE: One view of the chest was acquired. COMPARISON: CXR 02/06/20 FINDINGS: Surgical changes and devices: None. Lungs and pleura: No pleural effusions or pneumothorax. Mild increased vascularity, including sligh t increased asymmetric right basilar opacity. Mediastinum: Mediastinal contours appear normal. Heart size is normal. Bones and chest wall: No suspicious bony lesions. Overlying soft tissues appear unremarkable. IMPRESSION: Mild increased vascularity, including slight increased asymmetric right basilar opacity. This appear s suggestive of edema. Developing right basilar atelectasis and/or /pneumonia cannot be excluded. Reviewed by: Martine Treviño MD on 05/01/2020 12:45 PM PDT Approved by: Martine Treviño MD on 05/01/2020 12:45 PM PDT Station ID: [id number]
[2020-05-01 12:49] LABS: ALBUMIN 3.7 g/dL (3.2-5.5); ALBUMIN/GLOBULIN RATIO 0.9 (1.0-2.2); BILIRUBIN,TOTAL 0.7 mg/dL (0.2-1.0); CALCIUM 11.8 mg/dL (8.5-10.3); CREATININE 4.3 mg/dL (0.6-1.2); TOTAL PROTEIN 7.8 g/dL (6.7-8.2)
[2020-05-01] MEDS ORDERED: SODIUM CHLORIDE 0.9% 500 ML IV STA (12:51)
--- NOTE | 2020-05-01 12:58 | ED Physician Documentation ---
History of Present Illness - Stated complaint Stated Complaint: near syncope - Chief complaint Chief Complaint: Cardiac - History obtained from History obtained from: Patient, Family - History of Present Illness Timing: Today Pain level max: 2 Pain level now: 0 - Additonal information Additional information: 85-year-old gentleman presents to the emergency department after he stood up to get out of a car, stated he had a slight headache then felt weak. He states he felt lightheaded and dizzy. Saw spots in his vision and felt like he was going to pass out. His helped him back into the car and drove him here. The patient has a history of severe aortic stenosis. The states that he is not a candidate for valve replacement due to his poor kidney function. He is currently on digoxin, had an increased dose of Lasix recently secondary to hypercalcemia. Has not changed his diet. He has passed out in the past with no cause found. No fevers. No chills. No dyspnea. No chest pain. Currently feels normal. Review of Systems Ten Systems: 10 systems reviewed and negative Constitutional: denies: Fever, Chills Nose: denies: Rhinorrhea / runny nose, Congestion Cardiac: denies: Chest pain / pressure, Palpitations, Calf pain Respiratory: denies: Dyspnea, Cough GI: denies: Vomiting, Diarrhea Skin: denies: Rash Musculoskeletal: denies: Neck pain, Back pain Neurologic: reports: Headache (Patient states that he had a 2 out of 10 occipital headache prior to this event.). denies: Seizure, Confused, Altered mental status PD PAST MEDICAL HISTORY - Past Medical History Cardiovascular: Hypertension, High cholesterol, Atrial fibrillation Respiratory: None Neuro: Peripheral neuropathy Endocrine/Autoimmune: Type 2 diabetes GI: GERD : Renal insuffiency HEENT: None Psych: None Musculoskeletal: Rheumatoid arthritis, Gout Derm: None - Past Surgical History Past Surgical History: Yes General: Cholecystectomy Ortho: Arthroscopic surgery HEENT: Tonsil/Adenoidectomy Derm: Skin cancer surgery - Present Medications Home Medications: Ambulatory Orders Medication Instructions Recorded Confirmed Allopurinol [Zyloprim] 300 mg PO DAILY 08/27/19 08/28/19 Amiodarone [Pacerone] 100 mg PO DAILY 08/27/19 08/27/19 Furosemide [Lasix] 40 mg PO DAILY 08/27/19 05/01/20 Glimepiride 2 mg PO DAILY 08/27/19 05/01/20 Metoprolol Tartrate 100 mg PO BID 08/27/19 05/01/20 Omeprazole 20 mg PO DAILY 08/27/19 05/01/20 Warfarin [Coumadin] 5 mg PO TUTHSA 08/27/19 05/01/20 Atorvastatin Calcium 20 mg PO QPM 08/28/19 08/28/19 Meclizine HCl 25 mg PO TID PRN 08/28/19 05/01/20 Telmisartan [Micardis] 40 mg PO DAILY 08/28/19 05/01/20 Warfarin [Coumadin] 2.5 mg PO SUMOWEFR 08/28/19 05/01/20 - Allergies Allergies/Adverse Reactions: Allergies Allergy/AdvReac Type Severity Reaction Status Date / Time celecoxib [From Celebrex] Allergy Unknown Verified 05/01/20 12:12 cephalexin [From Keflex] Allergy Nausea Verified 05/01/20 12:12 codeine Allergy Itching Verified 05/01/20 12:12 hydrocodone [From Vicodin] Allergy Itching Verified 05/01/20 12:12 indomethacin Allergy Unknown Verified 05/01/20 12:12 NSAIDS (Non-Steroidal Allergy Unknown Verified 05/01/20 12:12 Anti-Inflamma orphenadrine [From Norflex] Allergy Unknown Verified 05/01/20 12:12 rofecoxib [From Vioxx] Allergy Unknown Verified 05/01/20 12:12 sildenafil [From Viagra] Allergy Diaphoresis Verified 05/01/20 12:12 - Social History Does the pt smoke?: No Smoking Status: Never smoker Does the pt drink ETOH?: No Does the pt have substance abuse?: No - Immunizations Immunizations are current?: Yes - POLST Patient has POLST: No PD ED PE NORMAL - Vitals Vital signs reviewed: Yes - General General: Alert 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, No acute distress, Well developed/nourished - HEENT HEENT: PERRL, Moist mucous membranes, Pharynx benign - Neck Neck: Supple, no meningeal sign - Cardiac Cardiac: RRR, Other (Harsh systolic murmur) - Respiratory Respiratory: No respiratory distress, Clear bilaterally - Abdomen Abdomen: Soft, Non tender, Non distended - Back Back: No spinal TTP - Derm Derm: Warm and dry - Extremities Extremities: No edema, No calf tenderness / cord - Neuro Neuro: Alert 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, network diagnostic support specialist 2-12 intact, No motor deficit, No sensory deficit, Normal speech, Other (NIH stroke scale of 0) - Psych Psych: Normal mood, Normal affect Results - Vitals Vitals: Vital Signs - 24 hr 05/01/20 05/01/20 05/01/20 12:12 12:15 14:15 Temperature 36.8 C Heart Rate 58 L 60 52 L Respiratory 18 16 16 Rate Blood Pressure 154/71 H 158/74 H 145/65 H O2 Saturation 98 98 97 05/01/20 05/01/20 15:23 15:29 Temperature 36.8 C Heart Rate 52 L 55 L Respiratory 16 16 Rate Blood Pressure 172/64 H 148/74 H O2 Saturation 98 98 Oxygen O2 Source Room air - EKG (time done) 1210 Rate: Rate (enter#) (57) Rhythm: NSR [place]: Normal Intervals: Normal VA QRS: Normal, LVH (w/ digoxin effect and repol abnormality.) - Labs Labs: Laboratory Tests 05/01/20 05/01/20 05/01/20 12:13 12:13 12:13 WBC 6.7 RBC 4.53 L Hgb 13.4 L Hct 44.2 MCV 97.6 H MCH 29.6 MCHC 30.3 L RDW 21.4 H Plt Count 203 MPV 10.4 Neut # (Auto) Not Reportable Lymph # (Auto) Not Reportable [place] # (Auto) Not Reportable Eos # (Auto) Not Reportable Baso # (Auto) Not Reportable Absolute Nucleated RBC Not Reportable Total Counted 100 Band Neuts % (Manual) 0 Abnorm Lymph % (Manual) 0 Nucleated RBC % Not Reportable Neutrophils # (Manual) 4.2 Lymphocytes # (Manual) 1.1 L Monocytes # (Manual) 0.9 Eosinophils # (Manual) 0.4 Basophils # (Manual) 0.1 Differential Comment MANUAL DIFFERENTIAL Manual Slide Review Indicated WBC Morphology NORMAL APPEARANCE Platelet Estimate NORMAL (130-450,000) Platelet Morphology NORMAL [place] RBC Morph Micro Appear 3+ ANISOC Sodium 141 Potassium 3.4 L Chloride 95 L Carbon Dioxide 33 H Anion Gap 13.0 BUN 40 H Creatinine 4.3 H Estimated GFR (MDRD) 13 L Glucose 102 H Calcium 11.8 H Total Bilirubin 0.7 AST 24 ALT 20 Alkaline Phosphatase 99 Troponin I High Sens 65.0 H* B-Natriuretic Peptide Total Protein 7.8 Albumin 3.7 Globulin 4.1 Albumin/Globulin Ratio 0.9 L Lipase 60 H Last Dose Date Last Dose Time Digoxin 05/01/20 05/01/20 05/01/20 12:21 12:21 14:20 WBC RBC Hgb Hct MCV MCH MCHC RDW Plt Count MPV Neut # (Auto) Lymph # (Auto) [place] # (Auto) Eos # (Auto) Baso # (Auto) Absolute Nucleated RBC Total Counted Band Neuts % (Manual) Abnorm Lymph % (Manual) Nucleated RBC % Neutrophils # (Manual) Lymphocytes # (Manual) Monocytes # (Manual) Eosinophils # (Manual) Basophils # (Manual) Differential Comment Manual Slide Review WBC Morphology Platelet Estimate Platelet Morphology RBC Morph Micro Appear Sodium Potassium Chloride Carbon Dioxide Anion Gap BUN Creatinine Estimated GFR (MDRD) Glucose Calcium Total Bilirubin AST ALT Alkaline Phosphatase Troponin I High Sens 58.5 H* B-Natriuretic Peptide 190 H Total Protein Albumin Globulin Albumin/Globulin Ratio Lipase Last Dose Date Not Reportable Last Dose Time Not Reportable Digoxin 1.5 - Rads (name of study) cxr Radiology: Prelim report reviewed, EMP read contemporaneously, See rad report (no acute abnormality.) head CT Radiology: Prelim report reviewed, EMP read contemporaneously, See rad report (no acute abnormality.) PD MEDICAL DECISION MAKING - ED course Complexity details: reviewed results, re-evaluated patient, considered differential, d/w patient, d/w family ED course: 85-year-old male with near syncope today. Has known aortic stenosis and arrhythmias. He is not a candidate for operative repair of the valve. They do not want to be hospitalized for telemetry. Troponin is likely baseline, given his significant renal failure. This is also baseline. Patient is well- appearing, nontoxic here. No acute findings on laboratory testing or EKG or radiographic testing. Patient and family counseled regarding signs and symptoms for which I believe and urgent re-evaluation would be necessary. Patient with good understanding of and agreement to plan and is comfortable going home at this time This document was made in part using voice recognition software. While efforts are made to proofread this document, sound alike and grammatical errors may occ ur. Departure - Departure Disposition: 01 Home, Self Care Clinical Impression: Near syncope Condition: Good Instructions: ED Near Syncope Unkn Follow-Up: Brennen Rodriguez MD [Primary Care Provider] - Within 1 week Comments: Return if you worsen. Drink plenty of fluids. Follow-up with your doctor for further care. There are no acute findings on your CAT scan, x-ray, EKG or laboratory testing today. This was likely related to your aortic stenosis. Discharge Date/Time: 05/01/20 15:31
[2020-05-01 13:20] LABS: DIGOXIN 1.5 ng/mL
[2020-05-01 13:47] LABS: BASOPHILS # (MANUAL) 0.1 10^3/uL (0-0.1); BASOPHILS % (MANUAL) 1 %; EOSINOPHILS # (MANUAL) 0.4 10^3/uL (0-0.7); LYMPHOCYTES # (MANUAL) 1.1 10^3/uL (1.5-3.5); LYMPHOCYTES % (MANUAL) 17 %; MONOCYTES # (MANUAL) 0.9 10^3/uL (0.0-1.0)
[2020-05-01 14:11] LABS: PLATELET ESTIMATE, MANUAL NORMAL (130-450,000) (NORMAL)
[2020-05-01 14:12] LABS: DIFFERENTIAL COMMENT MANUAL DIFFERENTIAL; PLATELET MORPHOLOGY NORMAL APP (NORMAL); RBC MORPHOLOGY (MULTIPLE) 3+ ANISOC (NORMAL)
--- NOTE | 2020-05-01 14:56 | CT Report ---
PROCEDURE: HEAD WO INDICATIONS: headache, near syncope TECHNIQUE: Noncontrast 5 mm thick angled axial sections acquired from the foramen magnum to the vertex. For rad iation dose reduction, the following was used: automated exposure control, adjustment of mA and/or k V according to patient size. COMPARISON: None. FINDINGS: Image quality: Excellent. CSF spaces: There is mild cerebral volume loss with prominence of ventricles and sulci. Basal cister ns are patent. No extra-axial fluid collections. Brain: No intracranial hemorrhage, mass, or mass effect. There are periventricular and subcortical w sergey matter hypodensities consistent with mild chronic small vessel ischemic changes. Capellan-white marcin er interface appears preserved. Skull and face: Calvarium and visualized facial bones are intact, without suspicious lesions. Sinuses: Visualized sinuses and mastoids are clear. IMPRESSION: 1. No acute intracranial abnormality. 2. Mild chronic white matter small vessel ischemic changes and cerebral volume loss. Reviewed by: Tyler Foss MD on 05/01/2020 2:54 PM PDT Approved by: Tyler Foss MD on 05/01/2020 2:54 PM PDT Station ID: [id number]
[2020-05-01 15:32] VITALS: BP 148/74
== END 2020-05-01 15:31 | disposition home or self-care (01) ==
LOC: ED 12:08
DX: R55 Syncope and collapse (principal); I35.0 Nonrheumatic aortic (valve) stenosis; N19 Unspecified kidney failure; R79.89 Other specified abnormal findings of blood chemistry; I10 Essential (primary) hypertension; I48.91 Unspecified atrial fibrillation; Z79.01 Long term (current) use of anticoagulants; E11.42 Type 2 diabetes mellitus with diabetic polyneuropathy; Z79.84 Long term (current) use of oral hypoglycemic drugs
CPT/HCPCS: 36415; 70450; 71045; 80053; 80162; 83690; 83880; 84484; 85025; 93005; 96360; 99284

== ENCOUNTER 2020-05-13 12:30 | Outpatient (CLI) | payer MEDICARE, BC | END 2020-05-13 12:31 | disposition home or self-care (01) | LOC: COV 12:30 | PROVIDERS: ATTEND Family Medicine | DX: Z20.828 Contact with and (suspected) exposure to other viral communicable diseases (principal) ==

== ENCOUNTER 2020-05-14 12:03 | Outpatient (CLI) | payer MEDICARE, BC ==
[2020-05-14 18:34] LABS: BASOPHILS # (AUTO) 0.1 10^3/uL (0.0-0.1); EOSINOPHILS # (AUTO) 0.4 10^3/uL (0.0-0.7); EOSINOPHILS % (AUTO) 5.4 %; LYMPHOCYTES # (AUTO) 1.2 10^3/uL (1.5-3.5); MEAN CORPUSCULAR HEMOGLOBIN 29.8 pg (27.0-31.0); MEAN CORPUSCULAR HGB CONC 29.9 g/dL (32.0-36.0); MEAN CORPUSCULAR VOLUME 99.6 fL (80.0-94.0); MEAN PLATELET VOLUME 10.4 fL (7.4-11.4); MONOCYTES % (AUTO) 13.8 %; NEUTROPHILS # (AUTO) 4.3 10^3/uL (1.5-6.6); NEUTROPHILS % (AUTO) 62.4 %; PLT - PLATELET COUNT 205 10^3/uL (130-450); RED CELL DISTRIBUTION WIDTH 19.8 % (12.0-15.0); WHITE BLOOD COUNT 6.9 x10^3/uL (4.8-10.8)
[2020-05-14 18:47] LABS: CREATININE,URINE 163.4 mg/dL; MICROALBUM/CREATININE RATIO,UR 153.6 ug/mg (<30.0); MICROALBUMIN,URINE 25.1 mg/dL (0-300.0)
[2020-05-14 18:48] LABS: ALBUMIN 3.6 g/dL (3.2-5.5); ALBUMIN/GLOBULIN RATIO 0.9 (1.0-2.2); BILIRUBIN,TOTAL 0.7 mg/dL (0.2-1.0); CALCIUM 11.4 mg/dL (8.5-10.3); CREATININE 3.5 mg/dL (0.6-1.2); TOTAL PROTEIN 7.4 g/dL (6.7-8.2)
[2020-05-14 18:58] LABS: FERRITIN 75.7 ng/mL (23.9-336.2)
== END 2020-05-14 23:59 ==
LOC: LAB.R 12:03
PROVIDERS: ATTEND Family Medicine
DX: I12.9 Hypertensive chronic kidney disease with stage 1 through stage 4 chronic kidney disease, or unspecified chronic kidney disease (principal); E11.22 Type 2 diabetes mellitus with diabetic chronic kidney disease; N18.30 Chronic kidney disease, stage 3 unspecified; D63.1 Anemia in chronic kidney disease
CPT/HCPCS: 80053; 82043; 82570; 82728; 83036; 83540; 84443; 84466; 85025

== ENCOUNTER 2020-05-28 10:44 | Outpatient (CLI) | payer MEDICARE, BC ==
--- NOTE | 2020-05-28 14:44 | CT Report ---
PROCEDURE: CHEST WO INDICATIONS: INTERSTITIAL PULMONARY DISEASE TECHNIQUE: Noncontrast 5 mm thick sections acquired from the pulmonary apices to the posterior costophrenic angl es. 7 mm thick coronal and sagittal MIP reformats were then acquired. For radiation dose reduction, the following was used: automated exposure control, adjustment of mA and/or kV according to patient size. COMPARISON: Chest x-ray 05/01/2020, 02/06/2020 FINDINGS: Image quality: Excellent. Lungs and pleura: Peripheral coarse reticulation throughout the right lung, and to a lesser extent l eft posterior lower lung. Mild groundglass opacity in a patchy distribution peripherally bilaterally, right greater than left. No honeycombing or evidence of bronchiectasis. No suspicious masses or nodu les. No pleural effusions or calcifications. No evidence of air trapping on dynamic images. Mediastinum: Heart size is mildly enlarged. Heavy coronary artery calcification, dense mitral annula r calcification and moderate aortic valvular calcification. No pericardial effusion. No mediastinal adenopathy by size criteria. Thoracic aorta and central pulmonary arteries are normal in size. Mild aortic arch calcification. Esophagus is normal in caliber. No hiatal hernia. Bones and chest wall: No suspicious bony lesions. No vertebral body compression fractures. No axil tommy or supraclavicular adenopathy by size criteria. The thyroid is normal in size. Abdomen: The gallbladder is surgically absent. Visualized upper abdominal solid organs and bowel loo ps appear normal in the absence of contrast. IMPRESSION: 1. There is peripheral reticulation, right greater than left and minimal peripheral groundglass opaci ty. Pattern is most suggestive of nonspecific interstitial pneumonitis, less likely pulmonary edema. 2. Mild cardiomegaly with moderate to heavy coronary and valvular calcification. Reviewed by: Estefani Rose MD on 05/28/2020 2:43 PM PDT Approved by: Estefani Rose MD on 05/28/2020 2:43 PM PDT Station ID: [id number]
== END 2020-05-28 10:45 | disposition home or self-care (01) ==
LOC: DI 10:44
PROVIDERS: ATTEND Internal Medicine Critical Care Medicine
DX: J84.9 Interstitial pulmonary disease, unspecified (principal)
CPT/HCPCS: 71250

== ENCOUNTER 2020-06-22 08:00 | Outpatient (CLI) | payer MEDICARE, BC | END 2020-06-22 23:59 | disposition home or self-care (01) | LOC: LAB.WCP 08:00 | PROVIDERS: ATTEND Physician Assistant | DX: Z79.01 Long term (current) use of anticoagulants (principal) ==

== ENCOUNTER 2020-06-22 10:15 | Outpatient (CLI) | payer MEDICARE, BC ==
--- NOTE | 2020-06-22 14:02 | CONSULTATION NOTE ---
Palliative Care Consultation - Referral Referring Provider: Dr. Brennen Rodriguez Time of Visit: 7592-7607 Referral setting: Home - Information Sources Records reviewed: RN notes reviewed, Previous records reviewed History/Review of Systems obtained from: Patient, Family ( Josefa) Exam limitations: Clinical condition (patient with mild memory) - History of Present Illness Brief History of Present Illness: This is an 85-year-old gentleman who has known severe aortic stenosis, this is a new diagnosis from his [place] admission . He had also progressive chronic kidney disease stage IV, and a prolonged hospitalization related to acute on chronic's diastolic CHF exacerbation. They had changed up his medications, including discontinuing his amiodarone, and changing him to digoxin. His had long-term atrial fib, but did have RVR during hospitalization. Unfortunately he still has significant PTSD, related to the delirium he had developed during his hospitalization. Family has quite a bit of distress, as he had to be there by himself and did not have access to him. Patient his continued to improve slowly, patient does have some underlying cognitive changes, with noted mild short-term memory issues and ongoing sundowning. Patient reports hallucinations, and poor sleep as a result of restlessness. He continues with persistent left shoulder pain, from a significant fall on 02/24, he reports he felt like his "spine unzipped", and continues with spinal discomfort from mid thoracic area and to lumbar spine. This was exacerbated by his fall. He was seen by home health on discharge from hospital, they have recently discharged. Patient does understand the seriousness of his illness, most likely expected decline, and palliative care has been asked to consult regarding goals of care. 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 Support System: Lives with his elio Josefa, they have been 31 years. They have his in her children, he just had a visit from his son from [place]. He has another son in [place] as well as a daughter from [place], she has 2 sons and sister she can call upon if needed support. 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 Did work regarding work-up for [employer]. They live in a elio home in [place], do feel well supported by friends and family. They are hoping for a palliative approach, and managing his multiple comorbidities as well as his serious illness regarding severe aortic stenosis, as heart failure, and CKD stage IV Family History - Family History Family History: Mother: (heart age 80), Father: , Cancer (lung age 58), Brother: , Other family: Renal Disease/Failure ( of kidney dx/heart age 65) Medications/Allergies - Medications Home Medications: Ambulatory Orders Medication Instructions Recorded Confirmed Allopurinol [Zyloprim] 300 mg PO DAILY 08/27/19 06/22/20 Furosemide [Lasix] 40 mg PO BID 08/27/19 06/22/20 Metoprolol Tartrate 100 mg PO BID 08/27/19 06/22/20 Warfarin [Coumadin] 5 mg PO TUTHSA 08/27/19 06/22/20 Meclizine HCl 25 mg PO TID PRN 08/28/19 06/22/20 Warfarin [Coumadin] 2.5 mg PO SUMOWEFR 08/28/19 06/22/20 Benzonatate 200 mg PO Q8HR PRN 06/22/20 06/22/20 Cyclobenzaprine HCl 2.5 mg PO TID PRN 06/22/20 06/22/20 Digoxin [Lanoxin] 125 mcg PO DAILY 06/22/20 06/22/20 Docusate Sodium [Dulcolax Stool 100 mg PO DAILY 06/22/20 06/22/20 Softener] Famotidine [Pepcid] 40 mg PO DAILY 06/22/20 06/22/20 Ferrous Sulfate 325 mg PO DAILY 06/22/20 06/22/20 Glipizide 2.5 mg PO DAILY 06/22/20 06/22/20 QUEtiapine [SEROquel] 12.5 mg PO QPM 06/22/20 06/22/20 Thiamine [Vitamin B-1] 100 mg PO DAILY 06/22/20 06/22/20 - Allergies Allergies/Adverse Reactions: Allergies Allergy/AdvReac Type Severity Reaction Status Date / Time celecoxib [From Celebrex] Allergy Unknown Verified 05/01/20 12:12 cephalexin [From Keflex] Allergy Nausea Verified 05/01/20 12:12 codeine Allergy Itching Verified 05/01/20 12:12 hydrocodone [From Vicodin] Allergy Itching Verified 05/01/20 12:12 indomethacin Allergy Unknown Verified 05/01/20 12:12 NSAIDS (Non-Steroidal Allergy Unknown Verified 05/01/20 12:12 Anti-Inflamma orphenadrine [From Norflex] Allergy Unknown Verified 05/01/20 12:12 rofecoxib [From Vioxx] Allergy Unknown Verified 05/01/20 12:12 sildenafil [From Viagra] Allergy Diaphoresis Verified 05/01/20 12:12 Review of Systems - Constitutional Constitutional: reports: Fatigue (most severe symptom), Weight loss (220 (was 237 in March)). denies: Fever, Chills - Eyes Eyes: reports: Vision loss, Corrective lenses - Ears, Nose & Throat Ears, Nose & Throat: reports: Hearing loss, Hoarseness, Dry mouth, Other (taste changes) - Cardiovascular Cardiovascular: reports: Edema (intermittent currently controlled with support stockings), Lightheadedness, Syncope (05/01), Exertional dyspnea, Decr. exercise tolerance. denies: Chest pain - Respiratory Respiratory: reports: Cough, SOB with exertion. denies: SOB at rest - Gastrointestinal Gastrointestinal: reports: Reflux/heartburn (controlled with pepcis), Good appetite. denies: Constipation, Nausea - Genitourinary Genitourinary: reports: Frequency - Musculoskeletal Musculoskeletal: reports: Back pain, Muscle aches, Stiffness, Limited range of motion, Muscle weakness, Joint pain (left shoulder) - Integumentary Integumentary: reports: Dryness - Neurological Neurological: reports: General weakness, Headache, Memory problems - Psychiatric Psychiatric: reports: Depression, Anxiety, Hallucinations (see cats; people who have ie parents brother; aware but worse since hospitalization) - Endocrine Endocrine: reports: Other (hypercalciumia @ times) - Hematologic/Lymphatic Hematologic/Lymph: Anemia - All Other Systems All Other Systems: reports: Reviewed and negative Physical Exam - Vital Signs Temperature: 96.8 C Pulse Rate: 54 Respiratory Rate: 18 O2 Saturation: 99 (ra @ rest) Blood Pressure: 132/62 - Physical Exam General Appearance: positive: No acute distress, Alert Eyes Bilateral: positive: Other (slightly watery; reddened rims) ENT: positive: Other (mask of) Neck: positive: Trachea midline. negative: Lymphadenopathy (R), Lymphadenopathy (L) Cardiovascular: positive: Irregularly irregular, Systolic murmur Respiratory: positive: No respiratory distress, Breath sounds nml, Diminished in bases (right greater than left). negative: Wheezes, Rales, Rhonchi Abdomen: positive: Non-tender, Soft, Nml bowel sounds Skin: positive: Pallor, Dryness Extremities: positive: No pedal edema (has support hose on) Neurologic/Psychiatric: positive: Oriented x3, Mood/affect nml, Weakness, Flat affect Palliative Care - POLST Patient has POLST: Yes POLST Status: DNR, Selective Treatment Pain: Pain worsening, Location (left shoulder; mid spine-exacerbated this summer with fall; uses occassionally 1/2 cyclobenzaprine at bedtime) Tiredness/Fatigue: Severe (7-10) Drowsiness/Sedation: Moderate (4-6), Comment (difficulty sleeping at night; tired during day; naps) Nausea: None Anorexia: None Dyspnea: Mild (1-3) Depression: Mild (1-3) Anxiety: Moderate (4-6) Feelings of wellbeing/Perceived Quality of Life: Fair, Acceptable, Worsening Sleep: Sleeps poorly Constipation: Yes, Managed Performance Status: Patient is still able to manage shower, though reports he gets significantly short of breath and exhaust him for rest the day. He does have very poor activity tolerance, is able to ambulate short distances. He is very frustrated he is not able to drive, but he is interested in getting stronger. We did discuss in the context of pain control and also to further improve his endurance, would make recommendation for physical therapy, patient is in agreement. - Palliative Care Discussion: Patient when asked what he worries about most, is certainly about dying. He perceives that he is of old age, and wearing out and does understand the seriousness of his illness. He and his know that given their decision not to pursue dialysis, nor intervention for TAVR, would expect to continue to fluctuate and continued to decline.Patient has had multiple hospitalizations this last year, both he and his would like to avoid any further ED visits or hospitalization. Patient expresses symptoms of PTSD and concern regarding his last 1 in February at [place], secondary to delirium. Patient has stabilized some, they are both hoping for the best. He also worries about being a burden and leaving his Josefa. Josefa very much likes to know what is to be expected, we did discuss in the context of lung/heart/kidneys, these can fluctuate and are not often predictable. We did discuss the usual course of declined is a little bit like a car running out of gas, but can also present a third of the time like a car going into the ditch. And planning its best to look at both scenarios, recognizing can have a long extended period with fairly gradual decline but declining functional and cognitive status, or can have an acute event. She is very much worried about him being shipped off her in his situation again where he is by himself. Patient does have a POLST with DN AR and selective treatments. He reports he still has things and projects he wants to yet do, some chips he wants to take. Counseling provided regarding the continuum of care from palliative to hospice, and palliative care holding them in this "twilight zone". Results - Lab Results Lab results reviewed: Yes Lab and Imaging Results: Patient due to have labs pending his nephrology appointment with Dr. Maciel 07/02. His last labs recorded 05/14 BUN 33, creatinine 3.5, GFR 17, calcium 11.4. Impression and Recommendations - Palliative Care Impression: This is an 85-year-old gentleman with known severe aortic stenosis, resulting chronic heart failure, and worsening CKD stage IV. Patient presents with moderate symptom burden of acute on chronic pain of left shoulder, moderate to severe fatigue, climbing functional and cognitive status, as well as mild depression and anxiety. Palliative care meeting with patient and , to establish service as well as goals of care. Recommendations/Counseling Done: 1. MCI. Patient does have symptoms suspicious of Lewy body, with hallucinations, sundowning, and fluctuating cognitive status. Patient is having difficulty sleeping, does not find the hallucinations scary, but are interfering with sleep. We will go ahead and trial quetiapine 12.5 mg at bedtime and titrate to effect. Counseling provided regarding black box warning, and side effects but will start initially at a small dose and evaluate response. 2. Acute left shoulder pain. Patient has had ongoing pain in his left shoulder, interfering both with function and sleep. Patient has had home physical therapy, would recommend outpatient physical therapy for pain control, ultrasound, massage and increase in function. Patient also has as a result of ground-level fall on 02/24 exacerbation of his back pain. Counseling provided regarding options, would like to pursue massage, in agreement, would also recommend physical therapy for other pain relieving modalities. 3. Fatigue. This is most likely multifactorial, specifically attributed to his worsening aortic stenosis and worsening kidney function. Counseling provided regarding energy conservation, recommended still participating as much activity as tolerated, but not to overdo. 4. Advanced care planning. Counseling provided regarding the role of palliative care, the continuum of care on into hospice. Patient does present with multiple risk factors regarding sequela of his serious illness, his goals are to take a palliative approach. They would like to avoid ED and hospitalization. 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 Is getting ready to transition to new PCP, many changes in his health this last year. Counseling provided regarding fluctuating status with chronic illness and progressive decline. Patient does have POLST in place, will continue to weigh benefits and burdens of decisions as they arise, and transition to hospice when appropriate Patient falls on the LAVELL index with a score of 12, this puts his 1 year mortality quite high at 46.8%, this index looks at community dwelling adults age 65 years and older. The outcome is all cause 1 year mortality. Risk calculators cannot predict the future for anyone individual but can give an estimate of how many people with similar risk factors will live and but they cannot identify who will live and who will . Time Spent: 75 minutes with greater than 50% of this done in counseling regarding continuum of care, management of dementia behaviors, role of palliative care, setting up rapport, and anticipatory guidance.Plan is to follow-up on response to Seroquel in 1 week, will titrate accordingly and visit in 3 to 4 weeks.
== END 2020-06-22 10:16 | disposition home or self-care (01) ==
LOC: PC 10:15
PROVIDERS: ATTEND Nurse Practitioner Adult Health
DX: Z51.5 Encounter for palliative care (principal); G31.84 Mild cognitive impairment of uncertain or unknown etiology; R44.1 Visual hallucinations; M25.512 Pain in left shoulder; M54.9 Dorsalgia, unspecified; R53.83 Other fatigue; I35.0 Nonrheumatic aortic (valve) stenosis; I13.0 Hypertensive heart and chronic kidney disease with heart failure and stage 1 through stage 4 chronic kidney disease, or unspecified chronic kidney disease; I50.33 Acute on chronic diastolic (congestive) heart failure; N18.4 Chronic kidney disease, stage 4 (severe); F43.10 Post-traumatic stress disorder, unspecified; E11.22 Type 2 diabetes mellitus with diabetic chronic kidney disease; Z79.899 Other long term (current) drug therapy; Z79.84 Long term (current) use of oral hypoglycemic drugs; Z79.02 Long term (current) use of antithrombotics/antiplatelets; Z72.820 Sleep deprivation; Z91.81 History of falling; Z66 Do not resuscitate
CPT/HCPCS: 99345

== ENCOUNTER 2020-06-29 08:00 | Outpatient (CLI) | payer MEDICARE, BC | END 2020-06-29 23:59 | disposition home or self-care (01) | LOC: LAB.WCP 08:00 | PROVIDERS: ATTEND Physician Assistant | DX: Z79.01 Long term (current) use of anticoagulants (principal) ==

== ENCOUNTER 2020-07-20 08:00 | Outpatient (CLI) | payer MEDICARE, BC | END 2020-07-20 23:59 | disposition home or self-care (01) | LOC: LAB.WCP 08:00 | PROVIDERS: ATTEND Nurse Practitioner Family | DX: Z79.01 Long term (current) use of anticoagulants (principal) ==

== ENCOUNTER 2020-07-23 10:45 | Outpatient (CLI) | payer MEDICARE, BC ==
--- NOTE | 2020-07-23 16:45 | CONSULTATION NOTE ---
Palliative Care Follow Up - Referral Referring Provider: Dr. Brennen Rodriguez Time of Visit: [id number] Referral setting: Home Referral Reason: Diabetes/CKD IV/MCI/HTN/Depression - Information Sources Records reviewed: Previous records reviewed History/Review of Systems obtained from: Patient, Family (Josefa present) Exam limitations: Clinical condition (mild STM deficits; [facility] [place] [facility]; more engaged and able to recall symptoms today) - History of Present Illness Update Brief HPI Update: This is an 85-year-old gentleman who has known severe aortic stenosis, this is a new diagnosis from his acute hospital admission in February, he has progressive chronic kidney disease stage IV, CHF, and atrial fib. Patient has had a slow, but is having a steady recovery. He did have his first physical therapy session yesterday, and was told he had a rotator cuff tear, and is somewhat tired from this. He has been pacing his activities, his biggest loss has been his ability to drive. He does have some noted short-term memory issues, had been having some hallucinations with ing, he is still having some nighttime romina kenings, but no further hallucinations with the initiation of quetiapine 12.5 mg at bedtime. He still continues with pain in his shoulder, back and hip. He reports this is currently tolerable, he does take an occasional acetaminophen if needed for relief, unfortunately has had a recent exacerbation of his gout. This manifested in his left foot, reports he feels it across the top of his foot and feels hot, and sometimes impacts weightbearing. He he can often attribute this to be diet induced. He is on allopurinol 300 mg. Patient appetite is improved, his weight is back up to 228.7, most likely is weight not fluid. He does have trace to 1+ pedal edema right greater than left, this continues to fluctuate as well. Of concern is his blood sugars have been consistently over the last couple weeks running greater than 200, he is only on glipizide 2.5 mg. He has been on a full tab in the past. I suspect with weight gain, increased food intake, patient would benefit from full tab. Patient has also been running somewhat hypertensive, not significant high numbers but in the [id number], over [id number]. His blood pressure for me was 139/84, but she does take it prior to medications. Patient is quite reflective on his journey thus far, is feeling somewhat more improved, though does present with persistent depressive feelings and feelings of loss and grief. He has a elio support of his staff, who does oversee his care and assist with appointments. They have been impacted significantly as far as ability to access support from friends and family, with the pandemic as well. 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 Social History - Living Situation Living arrangement: At home Living Situation: With spouse/s.o. Support System: Costa lives with his elio Josefa, they have been 31 years. They have his/her children, she has 2 sons and sister she can call upon if needed for support, he has 2 sons and a daughter. 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 They have a elio home in [place], do feel supported by friends and family, but they are feeling the burden of the pandemic with limited access to family and friends. Medications/Allergies - Medications Home Medications: Ambulatory Orders Medication Instructions Recorded Confirmed Allopurinol [Zyloprim] 300 mg PO DAILY 08/27/19 07/23/20 Furosemide [Lasix] 40 mg PO BID 08/27/19 07/23/20 Metoprolol Tartrate 100 mg PO BID 08/27/19 07/23/20 Warfarin [Coumadin] 5 mg PO TUTHSA 08/27/19 07/23/20 Warfarin [Coumadin] 2.5 mg PO SUMOWEFR 08/28/19 07/23/20 Benzonatate 200 mg PO Q8HR PRN 06/22/20 07/23/20 Cyclobenzaprine HCl 2.5 mg PO TID PRN 06/22/20 07/23/20 Digoxin [Lanoxin] 125 mcg PO DAILY 06/22/20 07/23/20 Docusate Sodium [Dulcolax Stool 100 mg PO DAILY 06/22/20 07/23/20 Softener] Famotidine [Pepcid] 40 mg PO DAILY 06/22/20 07/23/20 Ferrous Sulfate 325 mg PO DAILY 06/22/20 07/23/20 Glipizide 5 mg PO DAILY 06/22/20 07/23/20 QUEtiapine [SEROquel] 12.5 mg PO QPM 06/22/20 07/23/20 Thiamine [Vitamin B-1] 100 mg PO DAILY 06/22/20 07/23/20 - Allergies Allergies/Adverse Reactions: Allergies Allergy/AdvReac Type Severity Reaction Status Date / Time celecoxib [From Celebrex] Allergy Unknown Verified 05/01/20 12:12 cephalexin [From Keflex] Allergy Nausea Verified 05/01/20 12:12 codeine Allergy Itching Verified 05/01/20 12:12 hydrocodone [From Vicodin] Allergy Itching Verified 05/01/20 12:12 indomethacin Allergy Unknown Verified 05/01/20 12:12 NSAIDS (Non-Steroidal Allergy Unknown Verified 05/01/20 12:12 Anti-Inflamma orphenadrine [From Norflex] Allergy Unknown Verified 05/01/20 12:12 rofecoxib [From Vioxx] Allergy Unknown Verified 05/01/20 12:12 sildenafil [From Viagra] Allergy Diaphoresis Verified 05/01/20 12:12 Review of Systems - Constitutional Constitutional: reports: Fatigue (improving but still limiting), Weight gain (220 last visit; 228 but has been eating more). denies: Fever, Chills - Eyes Eyes: reports: Vision loss, Corrective lenses - Ears, Nose & Throat Ears, Nose & Throat: reports: Hearing loss, Hoarseness, Dry mouth, Other (taste changes; c/o drooling left side of mouth; hx of bells palsy) - Cardiovascular Cardiovascular: reports: Irregular heart rate, Chest pain (intermittent; induce with activity; not sustained), Edema, Decr. exercise tolerance - Respiratory Respiratory: reports: Cough, SOB with exertion. denies: SOB at rest - Gastrointestinal Gastrointestinal: reports: Reflux/heartburn (controlled with pepcid), Good appetite. denies: Constipation, Nausea - Genitourinary Genitourinary: reports: Frequency - Musculoskeletal Musculoskeletal: reports: Back pain, Muscle aches, Stiffness, Limited range of motion, Muscle weakness, Joint pain (shoulder/hip and knee right) - Integumentary Integumentary: reports: Dryness - Neurological Neurological: reports: General weakness, Memory problems - Psychiatric Psychiatric: reports: Depression, Anxiety. denies: Hallucinations (no further hallucinations with low dose quietipine) - Endocrine Endocrine: reports: Diabetes type 2 (sugars have been elevated), Other (hypercalciumia due to hyperparathyroidism) - Hematologic/Lymphatic Hematologic/Lymph: Anemia - All Other Systems All Other Systems: reports: Reviewed and negative Physical Exam - Vital Signs Temperature: 96.7 C Pulse Rate: 68 Respiratory Rate: 16 O2 Saturation: 98 (r @ rest) Blood Pressure: 132/72 - Physical Exam General Appearance: positive: No acute distress, Alert Eyes Bilateral: positive: Other (slightly watery; reddened rims; slight droop to left eye) ENT: positive: No signs of dehydration Neck: positive: Trachea midline. negative: Lymphadenopathy (R), Lymphadenopathy (L) Cardiovascular: positive: Irregularly irregular, Systolic murmur Respiratory: positive: No respiratory distress, Breath sounds nml, Diminished in bases (right greater than left). negative: Wheezes, Rales, Rhonchi Abdomen: positive: Non-tender, Soft, Nml bowel sounds Skin: positive: Pallor, Dryness Extremities: positive: Pedal edema (trace pedal edema to calf) Neurologic/Psychiatric: positive: Oriented x3, Weakness, Depressed mood/affect, Flat affect, Other (voice soft and difficult to understand) Palliative Care - POLST Patient has POLST: Yes POLST Status: DNR, Selective Treatment Pain: Pain improved, Location (right shoulder; hip, knee and low back), Severity (1-3) Tiredness/Fatigue: Moderate (4-6) Drowsiness/Sedation: Mild (1-3) Nausea: None Anorexia: None Dyspnea: Moderate (4-6) Depression: Moderate (4-6) Anxiety: Moderate (4-6) Feelings of wellbeing/Perceived Quality of Life: Fair, Acceptable, Improved Sleep: Variable sleep pattern Constipation: No Performance Status: Patient is ambulatory, is able to manage his own ADLs. He is very disappointed he cannot drive, this was in agreement with his primary care physician after hospitalization. Related to his reflexes. He has started physical therapy yest eduar, will be good for him to have a home exercise program as well as support for improving functional status and pain.Will reach out to follow-up on care plan/treatment as was not able to participate, she is worried they are only focusing on his right shoulder, physical therapist diagnosed a right rotator cuff tear. - Palliative Care Discussion: Patient and are pleased with his progress, patient though continues to express feelings of loss and sadness related to his decline as well is decreasing abilities. Patient was reflective of his discharge from hospital, when they told him to get his affairs in order. He remains quite frail, with stage IV kidney disease, but currently is doing fairly well. Counseling provided regarding the challenge of living with serious illness in mind staying in the moment, patient does present with some depressive symptoms. Patient is very tired of taking "more pills", did find talking with medical esthetician of home health helpful, would be interested when palliative care clinical social work therapist available. Results - Lab Results Lab results reviewed: Yes Lab and Imaging Results: 07/02 fasting glucose is 129, BUN 35, creatinine 3.03, GFR 18, sodium 143, potassium 4.7, calcium elevated 11.3, phosphorus 3.2, albumin 3.8, WBC 6.8, hemoglobin 14.6, iron studies within normal limits, patient with moderately increased albumin/creatinine ratio urine. Impression and Recommendations - Palliative Care Impression: This is an 85-year-old gentleman with known severe aortic stenosis, heart failure, and worsening CKD stage IV with recent GFR 18. Patient improved presents with improved symptom burden, continues with moderate fatigue, has improved functionally, as well as cognitively but does present with mild depression and anxiety. Patient with good response to quetiapine, with resolution of hallucinations. Patient started physical therapy for pain in right shoulder. Palliative care continue to meet with patient and to establish goals of care, and provide ongoing support in the face of serious illness. Recommendations/Counseling Done: 1. MCI. Patient was having symptoms suspicious of Lewy body, with us ucinations, sundowning, and fluctuating cognitive status. He also has a history of tremors. He did well with quetiapine 12.5 mg at bedtime, did not need titration, hallucinations have resolved. He is still up sometimes at night, but otherwise is not disturbed and his underlying cognitive status has improved. 2. Acute shoulder pain, patient has had ongoing pain interfering both with function and sleep. He is started with home outpatient physical therapy, looking ultrasound, massage and hoping to improve increase in function. Patient has this is a result of a ground-level fall on 02/24 with exacerbation of his back pain. Will follow up with physical therapy regarding treatment plan. His understanding was he was diagnosed with a rotator cuff tear, patient most likely would not be able to be a surgical candidate. 3. Fatigue. This is multifactorial, specifically attributed to his worsening aortic stenosis and kidney function. He has had some improvement in functional status and energy, still needs to pace his activities, but is encouraged. 4. Depression. Patient does present with mild depressive symptoms, patient is not interested though counseling was provided regarding the role of antidepressants. Patient would be interested when medical palliative care clinical social work therapist available for counseling and support. Patient is processing feelings of normal grief and loss related to his serious illness and changes over this last couple years. 5. Diabetes type 2. Patient's blood sugars these last few weeks have consistently been over 200, he has been on glipizide 5 mg before. I suspect it is attributed to his increased weight gain and increased appetite. We will go ahead and increase the glipizide 5 mg daily, and get an A1c as well as BMP on 07/27. 6. CKD stage IV. Patient's 07/02 GFR is 18, Is being followed by [facility]. Patient has had a recent exacerbation of his gout, though this fluctuates and he is on long-term allopurinol. Patient does not have labs until August, will go ahead and order BMP with CC to Dr. Maciel. 7. Advanced care planning. Patient is doing much better, both patient and are encouraged, though certainly understand the underlying seriousness of his illness. They are hoping for the best, and feeling encouraged as far as his functional status is improved as well as his cognition. We will continue to monitor and focus on quality of life issues to palliative care. He does have a POLST with DNA R/DNI and selective treatments. Time Spent: 60 minutes with greater than 50% of this done in counseling regarding symptom management, depression, and anticipatory guidance. Continue building of rapport with palliative care provider, will make referral to medical palliative care clinical social work therapist when available after beginning of year.
== END 2020-07-23 10:46 | disposition home or self-care (01) ==
LOC: PC 10:45
PROVIDERS: ATTEND Nurse Practitioner Adult Health
DX: Z51.5 Encounter for palliative care (principal); G31.84 Mild cognitive impairment of uncertain or unknown etiology; F05 Delirium due to known physiological condition; M25.511 Pain in right shoulder; I35.0 Nonrheumatic aortic (valve) stenosis; N18.4 Chronic kidney disease, stage 4 (severe); I13.0 Hypertensive heart and chronic kidney disease with heart failure and stage 1 through stage 4 chronic kidney disease, or unspecified chronic kidney disease; I50.30 Unspecified diastolic (congestive) heart failure; E11.22 Type 2 diabetes mellitus with diabetic chronic kidney disease; E11.42 Type 2 diabetes mellitus with diabetic polyneuropathy; E11.65 Type 2 diabetes mellitus with hyperglycemia; F32.9 Major depressive disorder, single episode, unspecified; F41.9 Anxiety disorder, unspecified; I48.91 Unspecified atrial fibrillation; Z79.01 Long term (current) use of anticoagulants; Z79.4 Long term (current) use of insulin; Z66 Do not resuscitate
CPT/HCPCS: 99350

== ENCOUNTER 2020-07-27 08:00 | Outpatient (CLI) | payer MEDICARE, BC ==
[2020-07-27 19:28] LABS: CREATININE 2.9 mg/dL (0.6-1.2)
[2020-07-27 19:35] LABS: HEMOGLOBIN A1c% 8.6 % (4.27-6.07)
== END 2020-07-27 23:59 | disposition home or self-care (01) ==
LOC: LAB.WCP 08:00
PROVIDERS: ATTEND Nurse Practitioner Adult Health
DX: E11.9 Type 2 diabetes mellitus without complications (principal); Z79.899 Other long term (current) drug therapy
CPT/HCPCS: 36415; 80048; 83036

== ENCOUNTER 2020-08-10 08:00 | Outpatient (CLI) | payer MEDICARE, BC | END 2020-08-10 23:59 | disposition home or self-care (01) | LOC: LAB.WCP 08:00 | PROVIDERS: ATTEND Physician Assistant | DX: Z79.01 Long term (current) use of anticoagulants (principal) ==

== ENCOUNTER 2020-08-24 10:27 | Outpatient (CLI) | payer MEDICARE, BC ==
[2020-08-24 12:01] LABS: HGB - HEMOGLOBIN 13.9 g/dL (14.0-18.0); MEAN CORPUSCULAR HEMOGLOBIN 31.6 pg (27.0-31.0); MEAN CORPUSCULAR HGB CONC 32.2 g/dL (32.0-36.0); MEAN CORPUSCULAR VOLUME 98.2 fL (80.0-94.0); MEAN PLATELET VOLUME 11.1 fL (7.4-11.4); RED BLOOD COUNT 4.4 10^6/uL (4.70-6.10)
[2020-08-24 12:31] LABS: CREATININE,URINE 99.2 mg/dL; MICROALBUM/CREATININE RATIO,UR 463.7 ug/mg (<30.0)
[2020-08-24 13:24] LABS: ALBUMIN 3.6 g/dL (3.2-5.5); CALCIUM 9.7 mg/dL (8.5-10.3); CREATININE 2.5 mg/dL (0.6-1.2); PHOSPHORUS 2.9 mg/dL (2.5-4.6); URIC ACID 7.4 mg/dL (2.6-7.2)
== END 2020-08-24 10:28 | disposition home or self-care (01) ==
LOC: LAB.WCP 10:27
PROVIDERS: ATTEND Family Medicine
DX: I12.9 Hypertensive chronic kidney disease with stage 1 through stage 4 chronic kidney disease, or unspecified chronic kidney disease (principal); N18.30 Chronic kidney disease, stage 3 unspecified; N17.9 Acute kidney failure, unspecified; I48.91 Unspecified atrial fibrillation; E21.1 Secondary hyperparathyroidism, not elsewhere classified
CPT/HCPCS: 36415; 80069; 81256; 82043; 82570; 83970; 84550; 85027; 85610

== ENCOUNTER 2020-09-03 10:30 | Outpatient (CLI) | payer MEDICARE, BC, OTHER ==
--- NOTE | 2020-09-03 20:23 | CONSULTATION NOTE ---
Palliative Care Follow Up - Referral Referring Provider: Dr. Rodriguez/Jessa JOHNSON Time of Visit: [id number] Referral setting: Home Referral Reason: CKD IV/Aortic stenosis/DM/MCI - Information Sources Records reviewed: Previous records reviewed History/Review of Systems obtained from: Patient, Family ( Josefa) Exam limitations: Clinical condition (patient with STM deficits) - History of Present Illness Update Brief HPI Update: This is an 85-year-old gentleman who has known severe aortic stenosis, chronic kidney disease stage IV, CHF, and atrial fib. Patient had an acute hospitalization in February, but has continued to do very well and improved. He has recently seen his egyptologist, his labs are looking well, his most recent creatinine is 2.5 and felt to be in good range for him. Patient continues with some persistent fatigue, breathlessness with exertion, but otherwise is doing fairly well. Patient did develop worsening short-term memory issues, with hallucinations and sundowning, he is still having quite a few nighttime awakenings, but no further hallucinations and has done well on quetiapine 12.5 mg at bedtime. He does have short-term memory issues, somewhat of a flat affect, but today is much more animated and engaged in conversation. Unfortunately he has continued to do well with his appetite, his blood sugars have been up. His weight has remained stable around 228. We had increased his glipizide to 5 mg back in July, continue to run high, unfortunately his A1c did not get drawn, we will go ahead and draw today. Instructed to increase glipizide by adding one half tab prior to dinner until results of medication. Patient is seeing physical therapy for his left shoulder pain, he continues with pain from his shoulder back and hip. This is been currently tolerable, and does feel like it has improved his range of motion. He has long-term had chronic back pain related to his previous work. Patient is quite pleased and thankful for his current status, and patient had been discharged from hospital, have been told he would have ongoing decline, and most likely lead to end-of-life event. They are doing well overall, had elio holidays, and are looking forward to being able to engage more once the pandemic settles down. Questions today regarding resuming and focusing on their relationship and sexual intimacy. 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 Social History - Living Situation Living arrangement: At home Living Situation: With spouse/s.o. Support System: Costa lives with his elio Josefa, they have been 31 years. They have his/her children, she has 2 sons and his sister she can call upon if needed for support, he has 2 sons and a daughter. 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 He living lo [facility] in [place], do feel supported by friends and family, but are feeling again the burden of pandemic with limited access to family and friends Medications/Allergies - Medications Home Medications: Ambulatory Orders Medication Instructions Recorded Confirmed Allopurinol [Zyloprim] 300 mg PO DAILY 08/27/19 09/03/20 Furosemide [Lasix] 40 mg PO BID 08/27/19 09/03/20 Warfarin [Coumadin] 5 mg PO TUTHSA 08/27/19 09/03/20 Warfarin [Coumadin] 2.5 mg PO SUMOWEFR 08/28/19 09/03/20 Benzonatate 200 mg PO Q8HR PRN 06/22/20 09/03/20 Digoxin [Lanoxin] 125 mcg PO .QOD 06/22/20 09/03/20 Docusate Sodium [Dulcolax Stool 100 mg PO DAILY 06/22/20 09/03/20 Softener] Famotidine [Pepcid] 40 mg PO DAILY 06/22/20 09/03/20 Ferrous Sulfate 325 mg PO DAILY 06/22/20 09/03/20 Glipizide 5 mg PO BID 06/22/20 09/03/20 QUEtiapine [SEROquel] 12.5 mg PO QPM MDD 25 mg 06/22/20 09/03/20 Thiamine [Vitamin B-1] 100 mg PO DAILY 06/22/20 09/03/20 Metoprolol Succinate [Toprol Xl] 100 mg PO DAILY 09/04/20 09/04/20 - Allergies Allergies/Adverse Reactions: Allergies Allergy/AdvReac Type Severity Reaction Status Date / Time celecoxib [From Celebrex] Allergy Unknown Verified 05/01/20 12:12 cephalexin [From Keflex] Allergy Nausea Verified 05/01/20 12:12 codeine Allergy Itching Verified 05/01/20 12:12 hydrocodone [From Vicodin] Allergy Itching Verified 05/01/20 12:12 indomethacin Allergy Unknown Verified 05/01/20 12:12 NSAIDS (Non-Steroidal Allergy Unknown Verified 05/01/20 12:12 Anti-Inflamma orphenadrine [From Norflex] Allergy Unknown Verified 05/01/20 12:12 rofecoxib [From Vioxx] Allergy Unknown Verified 05/01/20 12:12 sildenafil [From Viagra] Allergy Diaphoresis Verified 05/01/20 12:12 Review of Systems - Constitutional Constitutional: reports: Fatigue (improved), Weight stable (225). denies: Fever, Chills - Eyes Eyes: reports: Vision loss, Corrective lenses, Other (left eye droop) - Ears, Nose & Throat Ears, Nose & Throat: reports: Hearing loss, Dry mouth, Other (c/o drooling; hx bells palsy) - Cardiovascular Cardiovascular: reports: Decr. exercise tolerance (improving). denies: Chest pain - Respiratory Respiratory: reports: SOB with exertion. denies: SOB at rest - Gastrointestinal Gastrointestinal: reports: Reflux/heartburn (controlled with pepcid), Good appetite. 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 denies: Hallucinations (no further hallucinations with low dose quietipine) - Endocrine Endocrine: reports: Diabetes type 2 (sugars have been elevated remaining around 200), Other (hypercalciumia due to hyperparathyroidism; PTH WNL last check) - Hematologic/Lymphatic Hematologic/Lymph: Anemia (13.9 improved) - All Other Systems All Other Systems: reports: Reviewed and negative Physical Exam - Vital Signs Temperature: 96.7 C Pulse Rate: 92 Respiratory Rate: 18 O2 Saturation: 98 (ra @ rest) Blood Pressure: 112/64 - Physical Exam General Appearance: positive: No acute distress, Alert Eyes Bilateral: positive: Other ( slight droop to left eye) ENT: positive: No signs of dehydration Neck: positive: Trachea midline. negative: Lymphadenopathy (R), Lymphadenopathy (L) Cardiovascular: positive: Irregularly irregular, Systolic murmur Respiratory: positive: No respiratory distress, Breath sounds nml, Diminished in bases (right greater than left). negative: Wheezes, Rales, Rhonchi Abdomen: positive: Non-tender, Soft, Nml bowel sounds Skin: positive: Pallor, Dryness Extremities: positive: No pedal edema Neurologic/Psychiatric: positive: Oriented x3, Mood/affect nml, Weakness, Flat affect, Other (more animated and engaged in visit) Palliative Care - POLST Patient has POLST: Yes POLST Status: DNR, Selective Treatment Pain: Pain improved (left shoulder;), Severity (mild) Tiredness/Fatigue: Moderate (4-6) Drowsiness/Sedation: Mild (1-3) Nausea: None Anorexia: None Dyspnea: Mild (1-3) Depression: Mild (1-3) (improved) Anxiety: Mild (1-3) Feelings of wellbeing/Perceived Quality of Life: Good, Acceptable, Improved Sleep: Variable sleep pattern Constipation: Yes, Managed Performance Status: Patient's functional status continues to improve, is ambulating more, is able to manage his own ADLs, has been going to physical therapy. Still continues with some naps, related to up at night at times. Feeling stronger overall - Palliative Care Discussion: Patient feels like he is doing better overall, not feeling so despondent. If is feeling much more hopeful, they did have a nice holiday, still trying to navigate new normal in the context of the pandemic. Complicated as Josefa has been playing the role of caregiver, and patient's physical decline as well as cognitive changes, looking at ways to improve intimacy/'s sexual relationship. Would be interested in counseling, will track down some resources, given goals. Results - Lab Results Lab results reviewed: Yes Lab and Imaging Results: Mike A1c right forearm, without difficulty. Delivered to [facility] lab. Addendum 10.5 Aic Impression and Recommendations - Palliative Care Impression: This is an 85-year-old gentleman with known severe aortic stenosis, resulting in chronic heart failure and worsening CKD stage IV. Patient continues to improve, though still presents with moderate symptom burden. Patient's diabetes needs further adjustment, will draw A1c and adjust and defer to PCP when established. Palliative care continue provide support for symptom management and anticipatory guidance. Recommendations/Counseling Done: 1. MCI. Patient does have symptoms suspicious of Lewy body, with hallucinations, sundowning and fluctuating cognitive status. Patient can have difficulty sleeping, but is not wandering or having frightful hallucinations anymore. He has done well on quetiapine, his cognitive status has improved overall, we did discuss increasing to a full tab 25 mg at night if sleep continues to be problematic. 2. Left shoulder pain. Patient is having less pain, improving range of motion, was diagnosed with rotator cuff tear, most likely not be a surgical candidate. Feels like it is improving with physical therapy, will continue. 3. Fatigue. This is multifactorial, specifically attributed to his worsening aortic stenosis and kidney function, though this has improved overall. He has been able to do more, though is still limited but feeling fairly well today. 4. Depression. Patient does present with mild depressive symptoms, has been improving overall. They did have a nice holiday, he is engaging more in activities, they are starting to look again back at their relationship, will provide resources for counseling regarding intimacy/sexual issues. 5. Diabetes type 2. Patient's blood sugars remain elevated, we will go ahead and increase glipizide 5 mg a.m. and 2.5 mg prior to dinner, unfortunately did not get A1c drawn in 111 labs, will draw today for titration. He is due to e stablish with primary care next week, will defer ongoing management to them. 6. CKD stage IV, patient's creatinine is improved to 2.5, is seen Dr. Maciel, has improved overall does not have another appointment for 3 months. They are quite pleased. 7. Ramachandran care planning. Patient is doing much better, both patient and are encouraged, they still understand the seriousness of his underlying illness but are feeling quite hopeful. We will continue to monitor and focus on quality of life issues for palliative care, he does have a POLST with DN AR/DNI and selective treatments. 09/04 ADDENDUM: Spoke with , will increase glipizide to 5 mg twice daily, will defer to primary care for ongoing management. Time Spent: 60 minutes with greater 50% done in counseling regarding goals of care, anticipatory guidance, and symptom management.
== END 2020-09-03 10:31 | disposition home or self-care (01) ==
LOC: PC 10:30
PROVIDERS: ATTEND Nurse Practitioner Adult Health
DX: Z51.5 Encounter for palliative care (principal); G31.84 Mild cognitive impairment of uncertain or unknown etiology; M75.102 Unspecified rotator cuff tear or rupture of left shoulder, not specified as traumatic; R53.83 Other fatigue; F32.9 Major depressive disorder, single episode, unspecified; I35.0 Nonrheumatic aortic (valve) stenosis; I13.0 Hypertensive heart and chronic kidney disease with heart failure and stage 1 through stage 4 chronic kidney disease, or unspecified chronic kidney disease; E11.22 Type 2 diabetes mellitus with diabetic chronic kidney disease; N18.4 Chronic kidney disease, stage 4 (severe); I50.9 Heart failure, unspecified; E11.42 Type 2 diabetes mellitus with diabetic polyneuropathy; M06.9 Rheumatoid arthritis, unspecified; I48.91 Unspecified atrial fibrillation; Z79.01 Long term (current) use of anticoagulants; Z79.84 Long term (current) use of oral hypoglycemic drugs; Z66 Do not resuscitate
CPT/HCPCS: 99350

== ENCOUNTER 2020-09-03 11:20 | Outpatient (CLI) | payer MEDICARE, BC, OTHER ==
[2020-09-03 13:41] LABS: HEMOGLOBIN A1c% 10.5 % (4.27-6.07)
== END 2020-09-03 23:59 | disposition home or self-care (01) ==
LOC: LAB.R 11:20
PROVIDERS: ATTEND Nurse Practitioner Adult Health
DX: E11.22 Type 2 diabetes mellitus with diabetic chronic kidney disease (principal)
CPT/HCPCS: 83036

== ENCOUNTER 2020-09-21 08:00 | Outpatient (CLI) | payer MEDICARE, BC, OTHER | END 2020-09-21 23:59 | disposition home or self-care (01) | LOC: LAB.N 08:00 | PROVIDERS: ATTEND Nurse Practitioner Family | DX: Z79.01 Long term (current) use of anticoagulants (principal) ==

== ENCOUNTER 2020-09-30 08:00 | Outpatient (CLI) | payer MEDICARE, BC, OTHER | END 2020-09-30 23:59 | disposition home or self-care (01) | LOC: LAB.WCP 08:00 | PROVIDERS: ATTEND Nurse Practitioner Family | DX: I48.91 Unspecified atrial fibrillation (principal); Z79.01 Long term (current) use of anticoagulants ==

== ENCOUNTER 2020-10-21 08:00 | Outpatient (CLI) | payer MEDICARE, BC, OTHER | END 2020-10-21 23:59 | disposition home or self-care (01) | LOC: LAB.WCP 08:00 | PROVIDERS: ATTEND Nurse Practitioner Family | DX: I48.91 Unspecified atrial fibrillation (principal); Z79.01 Long term (current) use of anticoagulants ==

== ENCOUNTER 2020-11-04 08:00 | Outpatient (CLI) | payer MEDICARE, BC, OTHER | END 2020-11-04 23:59 | disposition home or self-care (01) | LOC: LAB.N 08:00 | PROVIDERS: ATTEND Nurse Practitioner Family | DX: I48.91 Unspecified atrial fibrillation (principal) ==

== ENCOUNTER 2020-11-16 11:02 | Outpatient (CLI) | payer MEDICARE, BC, OTHER ==
[2020-11-16 18:42] LABS: HCT - HEMATOCRIT 45.1 % (42.0-52.0); HGB - HEMOGLOBIN 14.3 g/dL (14.0-18.0); MEAN CORPUSCULAR HEMOGLOBIN 32.3 pg (27.0-31.0); MEAN CORPUSCULAR HGB CONC 31.7 g/dL (32.0-36.0); MEAN CORPUSCULAR VOLUME 101.8 fL (80.0-94.0); MEAN PLATELET VOLUME 10.9 fL (7.4-11.4); RED BLOOD COUNT 4.43 10^6/uL (4.70-6.10); RED CELL DISTRIBUTION WIDTH 14.2 % (12.0-15.0); WHITE BLOOD COUNT 6.5 x10^3/uL (4.8-10.8)
[2020-11-16 19:09] LABS: ALBUMIN 3.8 g/dL (3.2-5.5); BUN - BLOOD UREA NITROGEN 64 mg/dL (6-20); CALCIUM 9.8 mg/dL (8.5-10.3); CARBON DIOXIDE - CO2 28 mmol/L (21-32); CHLORIDE 103 mmol/L (101-111); CREATININE 2.7 mg/dL (0.6-1.2); DIGOXIN 0.6 ng/mL; GFR - MDRD 23 (>89); GLUCOSE 198 mg/dL (70-100); PHOSPHORUS 3.7 mg/dL (2.5-4.6); POTASSIUM 4.3 mmol/L (3.5-5.0); SODIUM 142 mmol/L (135-145)
[2020-11-16 19:50] LABS: INR 2.4 (0.8-1.2); PT - PROTHROMBIN TIME 25.4 secs (9.9-12.6)
[2020-11-16 20:27] LABS: ESTIMATED AVERAGE GLUCOSE 197 mg/dL (70-100); HEMOGLOBIN A1c% 8.5 % (4.27-6.07)
[2020-11-17 15:05] LABS: URIC ACID 7.5 mg/dL (2.6-7.2)
== END 2020-11-16 11:03 | disposition home or self-care (01) ==
LOC: LAB.N 11:02
PROVIDERS: ATTEND Nurse Practitioner Family
DX: E11.22 Type 2 diabetes mellitus with diabetic chronic kidney disease (principal); N18.4 Chronic kidney disease, stage 4 (severe); Z79.899 Other long term (current) drug therapy; I48.91 Unspecified atrial fibrillation; Z79.01 Long term (current) use of anticoagulants; E11.29 Type 2 diabetes mellitus with other diabetic kidney complication; N17.9 Acute kidney failure, unspecified; R80.9 Proteinuria, unspecified
CPT/HCPCS: 36415; 80069; 80162; 82043; 82570; 83036; 83970; 84550; 85027; 85610

== ENCOUNTER 2020-11-30 08:00 | Outpatient (CLI) | payer MEDICARE, BC, OTHER | END 2020-11-30 23:59 | disposition home or self-care (01) | LOC: LAB.N 08:00 | PROVIDERS: ATTEND Nurse Practitioner Family | DX: I48.91 Unspecified atrial fibrillation (principal); I48.92 Unspecified atrial flutter; Z79.01 Long term (current) use of anticoagulants ==

== ENCOUNTER 2020-12-21 08:00 | Outpatient (CLI) | payer MEDICARE, BC, OTHER | END 2020-12-21 23:59 | disposition home or self-care (01) | LOC: LAB.N 08:00 | PROVIDERS: ATTEND Nurse Practitioner Family | DX: I48.91 Unspecified atrial fibrillation (principal); I48.92 Unspecified atrial flutter; Z79.01 Long term (current) use of anticoagulants ==

== ENCOUNTER 2021-03-08 08:00 | Outpatient (CLI) | payer MEDICARE, BC, OTHER ==
[2021-03-08 18:03] LABS: HCT - HEMATOCRIT 46.1 % (42.0-52.0); HGB - HEMOGLOBIN 14.6 g/dL (14.0-18.0); MEAN CORPUSCULAR HEMOGLOBIN 32.1 pg (27.0-31.0); MEAN CORPUSCULAR HGB CONC 31.7 g/dL (32.0-36.0); MEAN CORPUSCULAR VOLUME 101.3 fL (80.0-94.0); MEAN PLATELET VOLUME 11.1 fL (7.4-11.4); RED BLOOD COUNT 4.55 10^6/uL (4.70-6.10); RED CELL DISTRIBUTION WIDTH 13.6 % (12.0-15.0); WHITE BLOOD COUNT 7.2 x10^3/uL (4.8-10.8)
[2021-03-08 18:52] LABS: CALCIUM 9.7 mg/dL (8.5-10.3); CREATININE 2.8 mg/dL (0.6-1.2); PHOSPHORUS 3.5 mg/dL (2.5-4.6); URIC ACID 7.4 mg/dL (2.6-7.2)
[2021-03-08 19:12] LABS: CREATININE,URINE 102.6 mg/dL; MICROALBUM/CREATININE RATIO,UR 489.3 ug/mg (<30.0); MICROALBUMIN,URINE 50.2 mg/dL (0-300.0)
[2021-03-11 20:59] LABS: ESTIMATED AVERAGE GLUCOSE 255 mg/dL (70-100); HEMOGLOBIN A1c% 10.5 % (4.27-6.07)
== END 2021-03-08 23:59 | disposition home or self-care (01) ==
LOC: LAB.WCP 08:00
PROVIDERS: ATTEND Internal Medicine Nephrology
DX: I12.9 Hypertensive chronic kidney disease with stage 1 through stage 4 chronic kidney disease, or unspecified chronic kidney disease (principal); E11.22 Type 2 diabetes mellitus with diabetic chronic kidney disease; N18.4 Chronic kidney disease, stage 4 (severe); E21.1 Secondary hyperparathyroidism, not elsewhere classified; R80.9 Proteinuria, unspecified
CPT/HCPCS: 36415; 80069; 82043; 82570; 83036; 83970; 84550; 85025; 85027

== ENCOUNTER 2021-03-17 08:00 | Outpatient (CLI) | payer MEDICARE, BC, OTHER | END 2021-03-17 23:59 | disposition home or self-care (01) | LOC: LAB.WCP 08:00 | PROVIDERS: ATTEND Internal Medicine | DX: I48.91 Unspecified atrial fibrillation (principal); Z79.01 Long term (current) use of anticoagulants ==

== ENCOUNTER 2021-04-14 08:00 | Outpatient (CLI) | payer MEDICARE, BC, OTHER | END 2021-04-14 23:59 | disposition home or self-care (01) | LOC: LAB.WCP 08:00 | PROVIDERS: ATTEND Internal Medicine | DX: I48.91 Unspecified atrial fibrillation (principal); Z79.01 Long term (current) use of anticoagulants ==

== ENCOUNTER 2021-05-12 08:00 | Outpatient (CLI) | payer MEDICARE, BC, OTHER | END 2021-05-12 23:59 | disposition home or self-care (01) | LOC: LAB.WCP 08:00 | PROVIDERS: ATTEND Internal Medicine | DX: I48.91 Unspecified atrial fibrillation (principal); I48.92 Unspecified atrial flutter; Z79.01 Long term (current) use of anticoagulants ==

== ENCOUNTER 2021-06-07 10:18 | Outpatient (CLI) | payer MEDICARE, BC, OTHER ==
[2021-06-07 12:27] LABS: HCT - HEMATOCRIT 45.6 % (42.0-52.0); HGB - HEMOGLOBIN 14.5 g/dL (14.0-18.0); MEAN CORPUSCULAR HEMOGLOBIN 31.7 pg (27.0-31.0); MEAN CORPUSCULAR HGB CONC 31.8 g/dL (32.0-36.0); MEAN CORPUSCULAR VOLUME 99.6 fL (80.0-94.0); MEAN PLATELET VOLUME 10.9 fL (7.4-11.4); RED BLOOD COUNT 4.58 10^6/uL (4.70-6.10); RED CELL DISTRIBUTION WIDTH 14.3 % (12.0-15.0); WHITE BLOOD COUNT 8.6 x10^3/uL (4.8-10.8)
[2021-06-07 13:22] LABS: ALBUMIN 4.1 g/dL (3.2-5.5); CREATININE 2.6 mg/dL (0.6-1.2); PHOSPHORUS 3.1 mg/dL (2.5-4.6); POTASSIUM 5.1 mmol/L (3.5-5.0); URIC ACID 7.1 mg/dL (2.6-7.2)
[2021-06-07 13:35] LABS: CREATININE,URINE 73.5 mg/dL; MICROALBUM/CREATININE RATIO,UR 576.9 ug/mg (<30.0); MICROALBUMIN,URINE 42.4 mg/dL (0-300.0)
[2021-06-07 13:37] LABS: ESTIMATED AVERAGE GLUCOSE 157 mg/dL (70-100); HEMOGLOBIN A1c% 7.1 % (4.27-6.07)
== END 2021-06-07 10:19 | disposition home or self-care (01) ==
LOC: LAB.N 10:18
PROVIDERS: ATTEND Internal Medicine Nephrology
DX: E11.22 Type 2 diabetes mellitus with diabetic chronic kidney disease (principal); N18.4 Chronic kidney disease, stage 4 (severe); E21.1 Secondary hyperparathyroidism, not elsewhere classified
CPT/HCPCS: 36415; 80069; 82043; 82570; 83036; 83970; 84550; 85027

== ENCOUNTER 2021-06-09 08:00 | Outpatient (CLI) | payer MEDICARE, BC, OTHER | END 2021-06-09 23:59 | disposition home or self-care (01) | LOC: LAB.WCP 08:00 | PROVIDERS: ATTEND Internal Medicine | DX: I48.91 Unspecified atrial fibrillation (principal); Z79.01 Long term (current) use of anticoagulants ==

== ENCOUNTER 2021-07-05 08:00 | Outpatient (CLI) | payer MEDICARE, BC, OTHER | END 2021-07-05 23:59 | disposition home or self-care (01) | LOC: LAB.WCP 08:00 | PROVIDERS: ATTEND Internal Medicine | DX: I48.91 Unspecified atrial fibrillation (principal); Z79.01 Long term (current) use of anticoagulants ==

== ENCOUNTER 2021-07-14 08:00 | Outpatient (CLI) | payer MEDICARE, BC, OTHER | END 2021-07-14 23:59 | disposition home or self-care (01) | LOC: LAB.WCP 08:00 | PROVIDERS: ATTEND Internal Medicine | DX: I48.91 Unspecified atrial fibrillation (principal); Z79.01 Long term (current) use of anticoagulants ==

== ENCOUNTER 2021-07-21 08:00 | Outpatient (CLI) | payer MEDICARE, BC, OTHER | END 2021-07-21 23:59 | disposition home or self-care (01) | LOC: LAB.WCP 08:00 | PROVIDERS: ATTEND Internal Medicine | DX: I48.92 Unspecified atrial flutter (principal); Z79.01 Long term (current) use of anticoagulants; I48.91 Unspecified atrial fibrillation ==

== ENCOUNTER 2021-07-30 08:00 | Outpatient (CLI) | payer MEDICARE, BC, OTHER | END 2021-07-30 23:59 | disposition home or self-care (01) | LOC: LAB.WCP 08:00 | PROVIDERS: ATTEND Internal Medicine | DX: I48.91 Unspecified atrial fibrillation (principal); Z79.01 Long term (current) use of anticoagulants ==

== ENCOUNTER 2021-08-20 08:00 | Outpatient (CLI) | payer MEDICARE, BC, OTHER | END 2021-08-20 23:59 | disposition home or self-care (01) | LOC: LAB.WCP 08:00 | PROVIDERS: ATTEND Internal Medicine | DX: I48.91 Unspecified atrial fibrillation (principal); Z79.01 Long term (current) use of anticoagulants ==

== ENCOUNTER 2021-10-06 12:24 | Outpatient (CLI) | payer MEDICARE, BC, OTHER ==
[2021-10-06 18:39] LABS: HCT - HEMATOCRIT 45.5 % (42.0-52.0); HGB - HEMOGLOBIN 14.5 g/dL (14.0-18.0); MEAN CORPUSCULAR HEMOGLOBIN 31.3 pg (27.0-31.0); MEAN CORPUSCULAR HGB CONC 31.9 g/dL (32.0-36.0); MEAN CORPUSCULAR VOLUME 98.3 fL (80.0-94.0); MEAN PLATELET VOLUME 11.1 fL (7.4-11.4); RED BLOOD COUNT 4.63 10^6/uL (4.70-6.10); RED CELL DISTRIBUTION WIDTH 14.4 % (12.0-15.0); WHITE BLOOD COUNT 7.8 x10^3/uL (4.8-10.8)
[2021-10-06 19:45] LABS: ALBUMIN 3.7 g/dL (3.2-5.5); BUN - BLOOD UREA NITROGEN 54 mg/dL (6-20); CALCIUM 9.4 mg/dL (8.5-10.3); CARBON DIOXIDE - CO2 29 mmol/L (21-32); CHLORIDE 99 mmol/L (101-111); CHOL/HDL RATIO 5.3 (<5.0); CHOLESTEROL 222 mg/dL; CREATININE 2.7 mg/dL (0.6-1.2); GFR - MDRD 23 (>89); GLUCOSE 178 mg/dL (70-100); HDL CHOLESTEROL 42 mg/dL; LDL CHOLESTEROL,CALCULATED 141 mg/dL; LDL/HDL RATIO 3.4 (<3.6); PHOSPHORUS 3.5 mg/dL (2.5-4.6); POTASSIUM 4.4 mmol/L (3.5-5.0); SODIUM 139 mmol/L (135-145); TRIGLYCERIDES 194 mg/dL; VLDL CHOLESTEROL 39 mg/dL
[2021-10-06 20:02] LABS: THYROID STIMULATING HORMONE 1.89 uIU/mL (0.34-5.60)
[2021-10-06 20:27] LABS: CREATININE,URINE 143.8 mg/dL; MICROALBUM/CREATININE RATIO,UR 712.1 ug/mg (<30.0); MICROALBUMIN,URINE 102.4 mg/dL (0-300.0)
== END 2021-10-06 12:25 | disposition home or self-care (01) ==
LOC: LAB.N 12:24
PROVIDERS: ATTEND Internal Medicine
DX: N17.9 Acute kidney failure, unspecified (principal); E11.42 Type 2 diabetes mellitus with diabetic polyneuropathy
CPT/HCPCS: 36415; 80061; 80069; 81599; 82043; 82570; 82607; 82784; 83721; 83970; 84443; 84550; 85025; 85027; 86334

== ENCOUNTER 2021-11-23 14:33 | Outpatient (CLI) | payer MEDICARE, BC, OTHER ==
[2021-11-23 18:36] LABS: THYROID STIMULATING HORMONE 1.08 uIU/mL (0.34-5.60)
== END 2021-11-23 14:34 | disposition home or self-care (01) ==
LOC: LAB.N 14:33
PROVIDERS: ATTEND Nurse Practitioner Acute Care
DX: I48.4 Atypical atrial flutter (principal); R00.2 Palpitations; R68.89 Other general symptoms and signs
CPT/HCPCS: 36415; 84443

== ENCOUNTER 2021-12-08 15:41 | Outpatient (CLI) | payer MEDICARE, BC, OTHER ==
[2021-12-08 18:14] LABS: ALBUMIN/GLOBULIN RATIO 0.7 (1.0-2.2); BILIRUBIN,TOTAL 0.7 mg/dL (0.2-1.0); CALCIUM 9.5 mg/dL (8.5-10.3); CREATININE 3.1 mg/dL (0.6-1.2); POTASSIUM 4.6 mmol/L (3.5-5.0); TOTAL PROTEIN 7.5 g/dL (6.7-8.2)
== END 2021-12-08 15:42 | disposition home or self-care (01) ==
LOC: LAB.N 15:41
PROVIDERS: ATTEND Nurse Practitioner
DX: I48.4 Atypical atrial flutter (principal)
CPT/HCPCS: 36415; 80053

== ENCOUNTER 2022-01-07 11:12 | Outpatient (CLI) | payer MEDICARE, BC, OTHER ==
[2022-01-07 18:50] LABS: BASOPHILS # (AUTO) 0.1 10^3/uL (0.0-0.1); EOSINOPHILS # (AUTO) 0.3 10^3/uL (0.0-0.7); EOSINOPHILS % (AUTO) 5.3 %; HCT - HEMATOCRIT 37.9 % (42.0-52.0); HGB - HEMOGLOBIN 11.8 g/dL (14.0-18.0); LYMPHOCYTES # (AUTO) 1.3 10^3/uL (1.5-3.5); LYMPHOCYTES % (AUTO) 20.8 %; MEAN CORPUSCULAR HEMOGLOBIN 31.1 pg (27.0-31.0); MEAN CORPUSCULAR HGB CONC 31.1 g/dL (32.0-36.0); MEAN CORPUSCULAR VOLUME 99.7 fL (80.0-94.0); MEAN PLATELET VOLUME 10.7 fL (7.4-11.4); MONOCYTES # (AUTO) 0.6 10^3/uL (0.0-1.0); MONOCYTES % (AUTO) 10.5 %; NEUTROPHILS # (AUTO) 3.8 10^3/uL (1.5-6.6); NEUTROPHILS % (AUTO) 62.1 %; PLT - PLATELET COUNT 170 10^3/uL (130-450); RED CELL DISTRIBUTION WIDTH 16.2 % (12.0-15.0); WHITE BLOOD COUNT 6.1 x10^3/uL (4.8-10.8)
[2022-01-07 19:12] LABS: ALBUMIN 3.2 g/dL (3.2-5.5); BUN - BLOOD UREA NITROGEN 42 mg/dL (6-20); CALCIUM 9.3 mg/dL (8.5-10.3); CARBON DIOXIDE - CO2 28 mmol/L (21-32); CHLORIDE 108 mmol/L (101-111); CHOL/HDL RATIO 4.4 (<5.0); CHOLESTEROL 190 mg/dL; GFR - MDRD 32 (>89); GLUCOSE 81 mg/dL (70-100); HDL CHOLESTEROL 43 mg/dL; LDL CHOLESTEROL,CALCULATED 127 mg/dL; POTASSIUM 4.2 mmol/L (3.5-5.0); SODIUM 144 mmol/L (135-145); TRIGLYCERIDES 101 mg/dL; URIC ACID 5.3 mg/dL (2.6-7.2); VLDL CHOLESTEROL 20 mg/dL
[2022-01-07 19:22] LABS: CREATININE,URINE 94.4 mg/dL; MICROALBUM/CREATININE RATIO,UR 273.3 ug/mg (<30.0); MICROALBUMIN,URINE 25.8 mg/dL (0-300.0)
[2022-01-07 22:14] LABS: ESTIMATED AVERAGE GLUCOSE 140 mg/dL (70-100); HEMOGLOBIN A1c% 6.5 % (4.27-6.07)
== END 2022-01-07 11:13 | disposition home or self-care (01) ==
LOC: LAB.N 11:12
PROVIDERS: ATTEND Internal Medicine Nephrology
DX: E11.42 Type 2 diabetes mellitus with diabetic polyneuropathy (principal); N17.9 Acute kidney failure, unspecified
CPT/HCPCS: 36415; 80048; 80061; 80069; 82043; 82570; 83036; 83721; 83970; 84550; 85025

== ENCOUNTER 2022-02-24 11:47 | Outpatient (CLI) | payer MEDICARE, BC, OTHER ==
[2022-02-24 17:45] LABS: BASOPHILS # (AUTO) 0.1 10^3/uL (0.0-0.1); BASOPHILS % (AUTO) 1.1 %; EOSINOPHILS # (AUTO) 0.3 10^3/uL (0.0-0.7); EOSINOPHILS % (AUTO) 4.2 %; HCT - HEMATOCRIT 38.4 % (42.0-52.0); HGB - HEMOGLOBIN 11.9 g/dL (14.0-18.0); LYMPHOCYTES % (AUTO) 13.8 %; MEAN CORPUSCULAR HEMOGLOBIN 31.2 pg (27.0-31.0); MEAN CORPUSCULAR VOLUME 100.8 fL (80.0-94.0); MEAN PLATELET VOLUME 10.7 fL (7.4-11.4); MONOCYTES # (AUTO) 0.8 10^3/uL (0.0-1.0); MONOCYTES % (AUTO) 11.5 %; NEUTROPHILS # (AUTO) 4.8 10^3/uL (1.5-6.6); NEUTROPHILS % (AUTO) 69.1 %; PLT - PLATELET COUNT 229 10^3/uL (130-450); RED BLOOD COUNT 3.81 10^6/uL (4.70-6.10); RED CELL DISTRIBUTION WIDTH 14.8 % (12.0-15.0)
[2022-02-24 18:18] LABS: ALBUMIN 3.7 g/dL (3.2-5.5); ALBUMIN/GLOBULIN RATIO 1.1 (1.0-2.2); BILIRUBIN,TOTAL 0.5 mg/dL (0.2-1.0); CALCIUM 9.6 mg/dL (8.5-10.3); CREATININE 2.3 mg/dL (0.6-1.2); POTASSIUM 4.3 mmol/L (3.5-5.0); TOTAL PROTEIN 7.1 g/dL (6.7-8.2); URIC ACID 7.1 mg/dL (2.6-7.2)
[2022-02-24 18:31] LABS: CREATININE,URINE 106.2 mg/dL; MICROALBUM/CREATININE RATIO,UR 858.8 ug/mg (<30.0); MICROALBUMIN,URINE 91.2 mg/dL (0-300.0)
[2022-02-24 21:02] LABS: ESTIMATED AVERAGE GLUCOSE 114 mg/dL (70-100); HEMOGLOBIN A1c% 5.6 % (4.27-6.07)
== END 2022-02-24 11:48 | disposition home or self-care (01) ==
LOC: LAB.N 11:47
PROVIDERS: ATTEND Internal Medicine
DX: E11.22 Type 2 diabetes mellitus with diabetic chronic kidney disease (principal); N18.4 Chronic kidney disease, stage 4 (severe); E11.42 Type 2 diabetes mellitus with diabetic polyneuropathy; M10.9 Gout, unspecified; I48.91 Unspecified atrial fibrillation
CPT/HCPCS: 36415; 80053; 82043; 82570; 83036; 84550; 85025

== ENCOUNTER 2022-04-22 12:35 | Outpatient (CLI) | payer MEDICARE, BC, OTHER ==
[2022-04-22 19:03] LABS: CALCIUM 10.1 mg/dL (8.5-10.3); POTASSIUM 4.7 mmol/L (3.5-5.0)
[2022-04-22 19:16] LABS: THYROID STIMULATING HORMONE 4.13 uIU/mL (0.34-5.60)
[2022-04-22 20:32] LABS: ESTIMATED AVERAGE GLUCOSE 131 mg/dL (70-100); HEMOGLOBIN A1c% 6.2 % (4.27-6.07)
== END 2022-04-22 12:36 | disposition home or self-care (01) ==
LOC: LAB.N 12:35
PROVIDERS: ATTEND Internal Medicine
DX: E11.42 Type 2 diabetes mellitus with diabetic polyneuropathy (principal); I48.91 Unspecified atrial fibrillation
CPT/HCPCS: 36415; 80048; 83036; 84443

== ENCOUNTER 2022-06-27 10:16 | Outpatient (CLI) | payer MEDICARE, BC ==
[2022-06-27 12:19] LABS: BASOPHILS # (AUTO) 0.1 10^3/uL (0.0-0.1); BASOPHILS % (AUTO) 1.4 %; EOSINOPHILS # (AUTO) 0.3 10^3/uL (0.0-0.7); EOSINOPHILS % (AUTO) 4.6 %; HCT - HEMATOCRIT 43.2 % (42.0-52.0); HGB - HEMOGLOBIN 13.3 g/dL (14.0-18.0); LYMPHOCYTES # (AUTO) 0.9 10^3/uL (1.5-3.5); LYMPHOCYTES % (AUTO) 16.1 %; MEAN CORPUSCULAR HEMOGLOBIN 29.8 pg (27.0-31.0); MEAN CORPUSCULAR HGB CONC 30.8 g/dL (32.0-36.0); MEAN CORPUSCULAR VOLUME 96.9 fL (80.0-94.0); MONOCYTES # (AUTO) 0.9 10^3/uL (0.0-1.0); MONOCYTES % (AUTO) 15.4 %; NEUTROPHILS # (AUTO) 3.5 10^3/uL (1.5-6.6); NEUTROPHILS % (AUTO) 62.1 %; PLT - PLATELET COUNT 178 10^3/uL (130-450); RED BLOOD COUNT 4.46 10^6/uL (4.70-6.10); RED CELL DISTRIBUTION WIDTH 16.2 % (12.0-15.0); WHITE BLOOD COUNT 5.7 x10^3/uL (4.8-10.8)
[2022-06-27 12:41] LABS: CREATININE 4.2 mg/dL (0.6-1.2); POTASSIUM 3.8 mmol/L (3.5-5.0); URIC ACID 5.7 mg/dL (2.6-7.2)
[2022-06-27 12:53] LABS: CALCIUM 13.9 mg/dL (8.5-10.3)
[2022-06-27 12:55] LABS: THYROID STIMULATING HORMONE 2.64 uIU/mL (0.34-5.60)
[2022-06-27 14:17] LABS: ESTIMATED AVERAGE GLUCOSE 111 mg/dL (70-100); HEMOGLOBIN A1c% 5.5 % (4.27-6.07)
== END 2022-06-27 10:17 | disposition home or self-care (01) ==
LOC: LAB.N 10:16
PROVIDERS: ATTEND Internal Medicine
DX: E11.42 Type 2 diabetes mellitus with diabetic polyneuropathy (principal); I48.91 Unspecified atrial fibrillation; M10.9 Gout, unspecified; E11.22 Type 2 diabetes mellitus with diabetic chronic kidney disease; N18.9 Chronic kidney disease, unspecified; D63.1 Anemia in chronic kidney disease
CPT/HCPCS: 36415; 80048; 83036; 84443; 84550; 85025

== ENCOUNTER 2022-07-10 00:20 | Outpatient (CLI) | payer MEDICARE, BC | END 2022-07-10 23:59 | disposition critical access hospital (66) | LOC: EMS 23:59 | DX: R07.81 Pleurodynia (principal); M54.6 Pain in thoracic spine; W06.XXXA Fall from bed, initial encounter; Y92.003 Bedroom of unspecified non-institutional (private) residence as the place of occurrence of the external cause | CPT/HCPCS: A0425; A0428 ==

== ENCOUNTER 2022-07-10 01:09 | Emergency (ER) | payer MEDICARE, BC ==
[2022-07-10] MEDS ORDERED: iohexoL-300 100 ML VIAL ONE (02:05)
--- NOTE | 2022-07-10 02:27 | ED Physician Documentation ---
PD HPI Fall - Stated complaint Stated Complaint: FALL - Chief complaint Chief Complaint: Trauma Hd/Nk - History obtained from History obtained from: Patient, Family (spouse) - History of Present Illness Mechanism of injury: Other (fell out of bed) Fall distance: Less than 5ft Where injury occurred: Home Timing - onset: Enter time (22:00), Today Injury(ies) location: Back Pain level now: 5 Quality of pain: Pain Associated symptoms: No: LOC, AMS, Neck pain, Weakness, Paresthesias, Dyspnea, Nausea / vomiting Worsens with: Movement, Palpation Contributing factors: No: Anticoagulated, Intoxicated Recently seen: Not recently seen - Additional information Additional information: at approximately 10 PM patient was in bed asleep, fell out of bed which caused him to wake up. He had upper back pain "between my shoulder blades" (per patient) as well as milder pain of left anterior chest (predominantly left parasternal area). Pain in back and chest is worse with movement and palpation. He denies head injury, denies headache, denies neck pain. His medications include eliquis. After falling, patient got back into bed but says it took him approximately 30 minutes due to having to get up/move very slowly (due to the back pain being exacerbated with movement). He could not get back to sleep due to the pain and patient and spouse became increasingly concerned that this might be more than a simple/trivial injury and thus called 911. Patient was discharged yesterday from [facility]; he was initially admitted for abnormal calcium levels but found to have pneumonia and the majority of his stay was for treatment of pneumonia. Patient currently is denying dyspnea, cough. Review of Systems Constitutional: denies: Fever Eyes: denies: Loss of vision, Decreased vision Cardiac: reports: Chest pain / pressure (left anterior/parasternal chest pain that is reproducible with palpation). denies: Palpitations Respiratory: reports: Reviewed and negative GI: reports: Reviewed and negative Musculoskeletal: reports: Back pain. denies: Neck pain, Extremity pain, Joint pain Neurologic: denies: Focal weakness, Numbness, Confused, Altered mental status, Unresponsive, Headache, Head injury, LOC PD PAST MEDICAL HISTORY - Past Medical History Past Medical History: Yes Cardiovascular: Congestive heart failure, Hypertension, High cholesterol, Atrial fibrillation Respiratory: Shortness of breath, Other Neuro: Peripheral neuropathy, Tremors, Fainting, Other Endocrine/Autoimmune: Type 2 diabetes, Other GI: GERD : Renal insuffiency HEENT: Chronic vision loss Psych: Depression Musculoskeletal: Rheumatoid arthritis, Gout Derm: None - Past Surgical History Past Surgical History: Yes General: Cholecystectomy Ortho: Arthroscopic surgery HEENT: Tonsil/Adenoidectomy Derm: Skin cancer surgery - Present Medications Home Medications: Ambulatory Orders Medication Instructions Recorded Confirmed allopurinoL [Zyloprim] 300 mg PO DAILY 08/27/19 07/10/22 Docusate Sodium [Dulcolax Stool 100 mg PO DAILY 06/22/20 07/10/22 Softener] Ferrous Sulfate 325 mg PO DAILY 06/22/20 07/10/22 QUEtiapine [SEROquel] 12.5 mg PO QPM MDD 25 mg 06/22/20 07/10/22 Thiamine [Vitamin B-1] 100 mg PO DAILY 06/22/20 07/10/22 glipiZIDE [Glipizide] 5 mg PO BID 06/22/20 07/10/22 Metoprolol Succinate [Toprol Xl] 100 mg PO DAILY 09/04/20 07/10/22 Apixaban [Eliquis] 2.5 mg PO BID 07/10/22 07/10/22 Betamethasone Valerate 60 ml TP PRN 07/10/22 Fluorouracil [Efudex] PRN 07/10/22 Torsemide [Soaanz] 40 mg PO DAILY 07/10/22 07/10/22 - Allergies Allergies/Adverse Reactions: Allergies Allergy/AdvReac Type Severity Reaction Status Date / Time celecoxib [From Celebrex] Allergy Unknown Verified 05/01/20 12:12 cephalexin [From Keflex] Allergy Nausea Verified 05/01/20 12:12 codeine Allergy Itching Verified 05/01/20 12:12 hydrocodone [From Vicodin] Allergy Itching Verified 05/01/20 12:12 indomethacin Allergy Unknown Verified 05/01/20 12:12 NSAIDS (Non-Steroidal Allergy Unknown Verified 05/01/20 12:12 Anti-Inflamma orphenadrine [From Norflex] Allergy Unknown Verified 05/01/20 12:12 rofecoxib [From Vioxx] Allergy Unknown Verified 05/01/20 12:12 sildenafil [From Viagra] Allergy Diaphoresis Verified 05/01/20 12:12 - Social History Does the pt smoke?: No Smoking Status: Never smoker Does the pt drink ETOH?: No Does the pt have substance abuse?: No - Immunizations Immunizations are current?: Yes - POLST Patient has POLST: Yes PD ED PE NORMAL - Vitals Vital signs reviewed: Yes - General General: Alert 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, No acute distress, Well developed/nourished - HEENT HEENT: Atraumatic, PERRL, EOMI, Moist mucous membranes - Neck Neck: No bony TTP - Cardiac Cardiac: RRR - Respiratory Respiratory: No respiratory distress, Clear bilaterally - Abdomen Abdomen: Soft, Non tender - Derm Derm: Normal color, Warm and dry - Extremities Extremities: No edema - Neuro Neuro: Alert 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, 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 technician 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 2-12 intact, No motor deficit, No sensory deficit, Normal speech Eye Opening: Spontaneous Motor: Obeys Commands Verbal: Oriented GCS Score: 15 Results - Vitals Vitals: Vital Signs - 24 hr 07/10/22 07/10/22 07/10/22 10:00 12:00 14:08 Heart Rate 55 L 57 L 64 Respiratory 16 18 18 Rate Blood Pressure 167/70 H 146/64 H 142/61 H O2 Saturation 96 93 94 07/10/22 15:21 Heart Rate 54 L Respiratory 18 Rate Blood Pressure 144/71 H O2 Saturation 97 Oxygen O2 Source Room air - Labs Labs: Laboratory Tests 07/10/22 07/10/22 04:04 04:04 WBC 7.5 RBC 3.74 L Hgb 11.2 L Hct 35.5 L MCV 94.9 H MCH 29.9 MCHC 31.5 L RDW 16.0 H Plt Count 293 MPV 11.3 Neut # (Auto) 5.1 Lymph # (Auto) 1.3 L [place] # (Auto) 0.7 Eos # (Auto) 0.4 Baso # (Auto) 0.1 Absolute Nucleated RBC 0.00 Nucleated RBC % 0.0 Sodium 147 H Potassium 3.4 L Chloride 108 Carbon Dioxide 28 Anion Gap 11.0 BUN 53 H Creatinine 3.0 H Estimated GFR (MDRD) 20 L Glucose 89 Calcium 8.4 L Total Bilirubin 1.6 H AST 44 H ALT 47 Alkaline Phosphatase 183 H Total Protein 6.6 L Albumin 2.2 L Globulin 4.3 H Albumin/Globulin Ratio 0.5 L Lipase 52 H - Rads (name of study) CTH Radiology: Prelim report reviewed, See rad report CT cervical spine Radiology: See rad report CT chest without contrast Radiology: Prelim report reviewed, See rad report CT A/P without contrast Radiology: Prelim report reviewed, EMP read contemporaneously PD MEDICAL DECISION MAKING - ED course Complexity details: reviewed results, re-evaluated patient, considered differential, d/w patient, d/w family ED course: CTH and neck performed considering patient's age and considering medications include eliquis. There are no concerning findings on these studies regarding the areas studied (head, neck). The CT cervical spine shows a T2 fracture which is also seen on chest CT; radiologist describes the finding as "nondisplaced horizontal shallow oblique through the anterior thick bridging syndesmophytes extending to the posterior upper vertebral body at T2". This would correlate with the area of chief complaint of upper back pain between his shoulder blades. There are no neurologic complaints nor findings on exam (such as weakness, numbness). I spoke with transfer center at [facility] and requested consult regarding this finding and to ascertain recommendation regarding approach and level of concern of this finding. Over an hour later I had still not heard from [facility] and at end of my shift I turned over care of patient to Dr. Astorga. Note that CT A/P also performed, no acute findings. Chest and A/P CT scans performed without contrast due to poor GFR (bun and creatinine are elevated but not significantly off his baseline (using previous results for comparison)). Also, there are multilobar bilateral lung opacities, more pronounced on right; in discussing this finding with patient and his , says there were findings on the studies when he was inpatient at [facility] (discharged yesterday) that were in both lungs and worse on right. He has no c/o dyspnea nor cough tonight and thus the pulmonary findings are felt to be incidental and can be reevaluated in outpatient setting ( says that he has already been told he will be getting another study such as repeat cxr or CT scan in the coming weeks to monitor the abnormal lung findings noted at [facility] ) Departure - Departure Disposition: 01 Home, Self Care Clinical Impression: Thoracic vertebral fracture Condition: Stable Instructions: ED Fx Comp Vertebral Comments: [facility] orthopedic spine surgeon finally called back after reviewing the images sent to them. Dr. Kebede states this would be treated nonoperatively. It does not not even need a collar necessarily. It will be hurting so some Tylenol regularly for pain and consider it 4 times a day for the next week to 10 days. They can follow-up with you at the orthopedic spine clinic outpatient. They could see you as soon as this coming Monday. The spine clinic will be contacting you tomorrow or Monday to arrange follow-up with them. They typically would like to see that this heals well over time without complications. The orthopedic spine clinic number is [phone] and ask for the orthospine clinic. The spine surgeon on-call today was Guido Kebede. Discharge Date/Time: 07/10/22 15:22
[2022-07-10 04:10] LABS: BASOPHILS # (AUTO) 0.1 10^3/uL (0.0-0.1); BASOPHILS % (AUTO) 0.9 %; EOSINOPHILS # (AUTO) 0.4 10^3/uL (0.0-0.7); EOSINOPHILS % (AUTO) 4.8 %; HCT - HEMATOCRIT 35.5 % (42.0-52.0); HGB - HEMOGLOBIN 11.2 g/dL (14.0-18.0); LYMPHOCYTES # (AUTO) 1.3 10^3/uL (1.5-3.5); LYMPHOCYTES % (AUTO) 16.6 %; MEAN CORPUSCULAR HEMOGLOBIN 29.9 pg (27.0-31.0); MEAN CORPUSCULAR HGB CONC 31.5 g/dL (32.0-36.0); MEAN CORPUSCULAR VOLUME 94.9 fL (80.0-94.0); MEAN PLATELET VOLUME 11.3 fL (7.4-11.4); MONOCYTES # (AUTO) 0.7 10^3/uL (0.0-1.0); MONOCYTES % (AUTO) 9.8 %; NEUTROPHILS # (AUTO) 5.1 10^3/uL (1.5-6.6); NEUTROPHILS % (AUTO) 67.4 %; PLT - PLATELET COUNT 293 10^3/uL (130-450); RED BLOOD COUNT 3.74 10^6/uL (4.70-6.10); WHITE BLOOD COUNT 7.5 x10^3/uL (4.8-10.8)
[2022-07-10 04:21] LABS: ALBUMIN 2.2 g/dL (3.2-5.5); ALBUMIN/GLOBULIN RATIO 0.5 (1.0-2.2); BILIRUBIN,TOTAL 1.6 mg/dL (0.2-1.0); CALCIUM 8.4 mg/dL (8.5-10.3); POTASSIUM 3.4 mmol/L (3.5-5.0); TOTAL PROTEIN 6.6 g/dL (6.7-8.2)
[2022-07-10] MEDS ORDERED: ACETAMINOPHEN 500 MG TABLET PO STA (07:48)
--- NOTE | 2022-07-10 10:08 | CT Report ---
PROCEDURE: HEAD WO INDICATIONS: fall, on eliquis TECHNIQUE: Noncontrast 4.5 mm thick angled axial sections acquired from the foramen magnum to the vertex. For r adiation dose reduction, the following was used: automated exposure control, adjustment of mA and/or kV according to patient size. COMPARISON: 05/01/2020. Correlation is made with the accompanying imaging, 07/10/2022. FINDINGS: Image quality: Excellent. CSF spaces: Basal cisterns are patent. No extra-axial fluid collections. Ventricles are normal in size and shape. Brain: No midline shift. No intracranial masses or hemorrhage. Capellan-white matter interface is norm al. Skull and face: Calvarium and visualized facial bones are intact, without suspicious lesions. Sinuses: A small likely mucous retention cyst can be seen involving the posterior left sphenoid sinu s. Visualized sinuses and mastoids are otherwise clear. IMPRESSION: Negative for acute intracranial hemorrhage. No significant intracranial abnormality is seen. Age-appropriate brain parenchymal volume loss and chronic small vessel ischemic change can be seen. Note: No significant discrepancy from the preliminary report. Reviewed by: Johnny Cervantes MD on 07/10/2022 9:07 AM [facility] Approved by: Johnny Cervantes MD on 07/10/2022 9:07 AM [facility] Station ID: [id number]
--- NOTE | 2022-07-10 10:13 | CT Report ---
PROCEDURE: CERVICAL SPINE WO INDICATIONS: fall, neck discomfort TECHNIQUE: Noncontrast 3 mm thick sections acquired from the skull base to the T4 level. Sagittal and coronal r eformats were then constructed. Dedicated oblique axial images were performed through the disc leve ls. For radiation dose reduction, the following was used: automated exposure control, adjustment o f mA and/or kV according to patient size. COMPARISON: Correlation is made with the accompanying imaging, 07/10/2022. FINDINGS: Image quality: Excellent. Bones: There is a fracture seen involving the T2 level anteriorly, as on series 8 images 47 through 54. No fractures or dislocations are seen of the cervical spine. Visualized superior ribs are intact. Focal degenerative change can also be seen involving the C1-C2 interface anteriorly. Within the infer ior cervical spine, there are numerous areas of bridging anterior osteophytes. The disc spaces are re latively well-preserved. Soft tissues: Patchy infiltrates can be seen involving the lung apices, which is worst within the ri ght upper lobe. Prevertebral soft tissues are normal in thickness. No paravertebral hematomas. No apical pneumothor aces. Atherosclerotic calcification is seen. IMPRESSION: Mildly displaced fracture seen involving the anterior T2 level. Negative for acute fracture of the cervical spine. Bilateral pulmonary infiltrates are seen, which is worst within the right upper lobe. The findings within the spine are worrisome for diffuse idiopathic skeletal hyperostosis (DISH). Note: No significant discrepancy from the preliminary report. Reviewed by: Johnny Cervantes MD on 07/10/2022 9:11 AM [facility] Approved by: Johnny Cervantes MD on 07/10/2022 9:11 AM [facility] Station ID: [id number]
--- NOTE | 2022-07-10 10:19 | CT Report ---
PROCEDURE: CHEST WO INDICATIONS: fall, left chest and left parathoracic pain TECHNIQUE: Noncontrast 1mm axial images were acquired from the pulmonary apices to the posterior costophrenic an gles. Axial 5 mm soft tissue kernel reconstructions were performed as well as 8 mm axial MIP and cor onal and sagittal 5 mm reformations. For radiation dose reduction, the following was used: automate d exposure control, adjustment of mA and/or kV according to patient size. COMPARISON: Correlation is made with the accompanying imaging, 07/10/2022. FINDINGS: Image quality: Excellent. Lungs and pleura: Bilateral patchy infiltrates are seen throughout the lungs, which are worst within the right upper lobe. There is a small right-sided pleural effusion. No pneumothorax. Central and pe ripheral airways are patent and normal in caliber. Subpleural fibrotic changes are seen. Mediastinum: Prominent coronary artery calcification can be seen. Heart size is mildly enlarged. No pericardial effusion. Mildly enlarged mediastinal lymph nodes are seen, including recurrent lymph n ode measuring 17 x 20 mm. Thoracic aorta and central pulmonary arteries are normal in size. Atheroscl erotic calcification is seen. Esophagus is normal in caliber. No hiatal hernia. Bones and chest wall: No suspicious bony lesions. There is a mildly displaced fracture seen involvin g the anterior T2 level, which is better demonstrated on the accompanying cervical spine imaging, yet can be seen on these images, as on series 6 images 37 through 39. Bridging anterior osteophytes are seen involving the cervicothoracic junction. The disc heights are relatively well-preserved. No axill markus or supraclavicular adenopathy by size criteria. The thyroid is normal in size and there are no i ncidental findings. Abdomen: There is a fat-containing lesion involving the right adrenal gland, measuring 11 mm and freddy suring -16 Hounsfield units. Cholecystectomy clips are seen. Visualized upper abdominal solid organ s and bowel loops appear normal in the absence of contrast. IMPRESSION: Patchy bilateral infiltrates are seen, which are worst within the right upper lobe. There is a small right-sided pleural effusion. Enlargement of central lymph nodes are seen, which are presumed to be reactive. There is mild cardiomegaly. Subpleural fibrotic change can be seen. There is a mildly displaced fracture involving the anterior aspect of the T2 level. The findings within the spine are worrisome for diffuse idiopathic skeletal hyperostosis (DISH). Additional findings: Advanced coronary artery calcification Subpleural fibrosis Cholecystectomy Benign right adrenal gland lipoma Note: No significant discrepancy from the preliminary report. Reviewed by: Johnny Cervantes MD on 07/10/2022 9:17 AM [facility] Approved by: Johnny Cervantes MD on 07/10/2022 9:17 AM [facility] Station ID: [id number]
--- NOTE | 2022-07-10 10:22 | CT Report ---
PROCEDURE: ABDOMEN/PELVIS WO INDICATIONS: fall, left low chest pain, tenderness TECHNIQUE: Noncontrast 5 mm thick sections acquired from the diaphragms to the symphysis. 5 mm coronal and sagi ttal reformats were then performed. For radiation dose reduction, the following was used: automated exposure control, adjustment of mA and/or kV according to patient size. COMPARISON: Correlation is made with the accompanying imaging, 07/10/2022. FINDINGS: Image quality: Excellent. ABDOMEN: Lung bases: Patchy infiltrates are seen at the lung bases. A small right-sided pleural effusion is se en. Heart size is mildly enlarged. Advanced coronary artery calcification is seen. Solid organs: Liver and spleen are normal in size. Gallbladder has been removed. Pancreas is milady l in contours. There is a 12 mm right adrenal lipoma seen that measures -60 Hounsfield units. Kidneys are normal in size, without hydronephrosis or nephrolithiasis. An exophytic cyst can be seen along t he lateral aspect of the right kidney measuring 15 Hounsfield units and 9 mm. Peritoneum and bowel: Unenhanced bowel loops demonstrate normal wall thickness and caliber. No free fluid or air. A normal appendix is incidentally noted. Diverticulosis can be seen, without efliciano f indings of active diverticulitis. Nodes and vessels: No retroperitoneal or mesenteric adenopathy by size criteria. Aorta and inferior vena cava are normal in caliber. Atherosclerotic calcification is seen. Miscellaneous: No ventral hernias. PELVIS: Genitourinary: Bladder wall thickness is normal. Miscellaneous: No inguinal hernias or adenopathy. Bones: No suspicious bony lesions. No vertebral body compression fractures. Age-appropriate degene rative changes are seen. IMPRESSION: No acute abnormality is identified. There is a small right-sided pleural effusion. Patchy infiltrates are seen at the lung bases. There is mild cardiomegaly. Incidental note is made of: Prominent coronary artery calcification Cholecystectomy Exophytic right renal cyst Benign right adrenal lipoma Normal appendix. Diverticulosis, without findings of active diverticulitis. Note: No significant discrepancy from the preliminary report. Reviewed by: Johnny Cervantes MD on 07/10/2022 9:21 AM [facility] Approved by: Johnny Cervantes MD on 07/10/2022 9:21 AM [facility] Station ID: [id number]
--- NOTE | 2022-07-10 14:28 | ED Physician Documentation ---
ED Addendum - Addendum Addendum: 07/10/22 14:26 [facility] orthopedic spine surgeon finally called back after reviewing the images sent to them. Dr. Kebede states this would be treated nonoperatively. It does not not even need a collar necessarily. It will be hurting so some Tylenol regularly for pain and consider it 4 times a day for the next week to 10 days. They can follow-up with you at the orthopedic spine clinic outpatient. They could see you as soon as this coming Monday. The spine clinic will be conta cting you tomorrow or Monday to arrange follow-up with them. They typically would like to see that this heals well over time without complications. The orthopedic spine clinic number is [phone] and ask for the orthospine clinic. The spine surgeon on-call today was Guido Kebede. 07/10/22 14:28
[2022-07-10 15:22] VITALS: BP 144/71
== END 2022-07-10 15:22 | disposition home or self-care (01) ==
LOC: ED 01:09
DX: S22.029A Unspecified fracture of second thoracic vertebra, initial encounter for closed fracture (principal); W06.XXXA Fall from bed, initial encounter; I48.91 Unspecified atrial fibrillation; Z79.01 Long term (current) use of anticoagulants; I11.0 Hypertensive heart disease with heart failure; I50.9 Heart failure, unspecified; E11.42 Type 2 diabetes mellitus with diabetic polyneuropathy
CPT/HCPCS: 36415; 70450; 71250; 72125; 74176; 80053; 83690; 85025; 99284; A9270

== ENCOUNTER 2022-07-21 14:46 | Outpatient (CLI) | payer MEDICARE, BC ==
[2022-07-21 17:59] LABS: BASOPHILS # (AUTO) 0.1 10^3/uL (0.0-0.1); BASOPHILS % (AUTO) 1.4 %; EOSINOPHILS # (AUTO) 0.4 10^3/uL (0.0-0.7); EOSINOPHILS % (AUTO) 6.2 %; HCT - HEMATOCRIT 44.6 % (42.0-52.0); HGB - HEMOGLOBIN 13.6 g/dL (14.0-18.0); LYMPHOCYTES # (AUTO) 1.4 10^3/uL (1.5-3.5); MEAN CORPUSCULAR HEMOGLOBIN 29.5 pg (27.0-31.0); MEAN CORPUSCULAR HGB CONC 30.5 g/dL (32.0-36.0); MEAN CORPUSCULAR VOLUME 96.7 fL (80.0-94.0); MEAN PLATELET VOLUME 11.3 fL (7.4-11.4); MONOCYTES # (AUTO) 0.9 10^3/uL (0.0-1.0); MONOCYTES % (AUTO) 13.6 %; NEUTROPHILS # (AUTO) 3.7 10^3/uL (1.5-6.6); NEUTROPHILS % (AUTO) 57.5 %; PLT - PLATELET COUNT 280 10^3/uL (130-450); RED BLOOD COUNT 4.61 10^6/uL (4.70-6.10); RED CELL DISTRIBUTION WIDTH 15.4 % (12.0-15.0); WHITE BLOOD COUNT 6.4 x10^3/uL (4.8-10.8)
[2022-07-21 18:08] LABS: THYROID STIMULATING HORMONE 1.94 uIU/mL (0.34-5.60)
[2022-07-21 18:14] LABS: FERRITIN 178.3 ng/mL (23.9-336.2)
[2022-07-21 18:29] LABS: ALBUMIN 3.3 g/dL (3.2-5.5); ALBUMIN/GLOBULIN RATIO 0.7 (1.0-2.2); BILIRUBIN,TOTAL 0.9 mg/dL (0.2-1.0); CALCIUM 9.7 mg/dL (8.5-10.3); CREATININE 4.6 mg/dL (0.6-1.2); TOTAL PROTEIN 8.1 g/dL (6.7-8.2); URIC ACID 7.5 mg/dL (2.6-7.2)
[2022-07-21 18:39] LABS: POTASSIUM 6.2 mmol/L (3.5-5.0)
[2022-07-21 20:27] LABS: ESTIMATED AVERAGE GLUCOSE 117 mg/dL (70-100); HEMOGLOBIN A1c% 5.7 % (4.27-6.07)
== END 2022-07-21 14:47 | disposition home or self-care (01) ==
LOC: LAB.N 14:46
PROVIDERS: ATTEND Internal Medicine
DX: I12.9 Hypertensive chronic kidney disease with stage 1 through stage 4 chronic kidney disease, or unspecified chronic kidney disease (principal); N18.4 Chronic kidney disease, stage 4 (severe); E11.22 Type 2 diabetes mellitus with diabetic chronic kidney disease; D63.1 Anemia in chronic kidney disease; E11.42 Type 2 diabetes mellitus with diabetic polyneuropathy; N25.81 Secondary hyperparathyroidism of renal origin; I48.91 Unspecified atrial fibrillation; M10.9 Gout, unspecified
CPT/HCPCS: 36415; 80053; 82728; 83036; 83540; 83970; 84443; 84466; 84550; 85025

== ENCOUNTER 2022-12-11 08:50 | Outpatient (CLI) | payer MEDICARE, BC | END 2022-12-11 23:59 | disposition EMS.NT | LOC: EMS 08:50 | DX: R53.1 Weakness (principal); R25.1 Tremor, unspecified ==

== ENCOUNTER 2022-12-17 01:57 | Outpatient (CLI) | payer MEDICARE, BC | END 2022-12-17 23:59 | disposition EMS.NT | LOC: EMS 01:57 | DX: Z03.89 Encounter for observation for other suspected diseases and conditions ruled out (principal) ==

== ENCOUNTER 2022-12-25 06:13 | Outpatient (CLI) | payer MEDICARE, BC | END 2022-12-25 06:14 | disposition E | LOC: EMS 06:13 ==